=== PATIENT | male | born 1955 | race Caucasian/White ===

== ENCOUNTER 2016-07-31 12:49 | Emergency (ER) | payer BC ==
[~2016-07-31] VITALS: Ht 190.5 cm; Wt 139.3 kg
[~2016-07-31 12:49] MED LIST: ASPI-435 PO; ATEN25TA PO; DOXY100C2 PO; LISI5TAB PO; OMEP20CA9 PO; PRED-301 PO; SIMV40TA2 PO; TRAM-10 PO; TRAZ-119 PO; VTMD1000 PO
[2016-07-31] MEDS ORDERED: SODIUM CHLORIDE 0.9% 1000ML 1,000 ML IV STA (12:56)
[2016-07-31] MEDS ORDERED: ONDANSETRON INJ 2 MG/ML 2 ML VIAL IV STA (12:56)
--- NOTE | 2016-07-31 13:02 | EMERGENCY ROOM VISIT NOTE ---
History Report prepared by Natasha: Ariel Roberto Under the Supervision of: Dr. Reggie Ramsey D.O. First contact with patient: 12:49 Stated Complaint: L HIP DISLOCATION History of Present Illness The patient is a 60 year old male who presents to the Emergency Room via EMS with complaints of a sudden left hip dislocation that occurred prior to arrival this morning. The patient says that he has had his left hip pop out in the past , and was put to sleep when he had his hip put back in. He states that he was bending over working at camp, when his left hip popped out. The patient then fell down onto his side. Per EMS, the patient was given 200 micrograms of Fentanyl and 10 mg of Morphine in the ambulance. The patient says that he has left hip pain and a bit of abdominal pain, but the abdominal pain may be from the strap that was put around him in the ambulance. He notes that he had a bit of water after the incident, but has not eaten anything this morning. He had a cholecystectomy a couple weeks ago. The patient uses tobacco products rarely, and does not drink alcohol. Source of History: patient, EMS Onset: Prior to arrival this morning Position: other (left hip) Quality: other (dislocation) Timing: other (sudden) Associated Symptoms: + abdominal pain (from strap) Note: Associated symptoms: Left hip pain. Review of Systems See HPI for pertinent positives & negatives. A total of 10 systems reviewed and were otherwise negative. Past Medical & Surgical Medical Problems: (1) Arthritis of left hip Surgical Problems: (1) H/O rotator cuff surgery (2) S/P hip replacement (3) S/P knee replacement Family History Gallbladder disease Heart disease Hypertension Kidney disease Kidney stones Social History Smoking Status: Light Tobacco Smoker Alcohol Use: none Marital Status: single Occupation Status: employed Current/Historical Medications Scheduled Aspirin (Aspirin 81), 81 MG PO QAM Atenolol (Tenormin), 12.5 MG PO QAM Cholecalciferol (Vitamin D3), 5,000 UNITS PO QAM Lisinopril (Prinivil), 5 MG PO QAM Omeprazole (Prilosec), 20 MG PO QPM Prednisone (Prednisone), 5 MG PO DAILY Simvastatin (Zocor), 40 MG PO QPM Trazodone Hcl (Desyrel), 50 MG PO HS Scheduled PRN Tramadol (Ultram), 50 MG PO Q4H PRN for Pain Allergies Coded Allergies: No Known Allergies (Unverified , 07/31/16) Physical Exam Vital Signs Date Time Temp Pulse Resp B/P (MAP) Pulse Ox O2 Delivery O2 Flow Rate FiO2 07/31/16 18:18 61 16 137/64 97 Room Air 07/31/16 17:19 56 18 102/57 92 Room Air 07/31/16 17:16 58 07/31/16 16:02 122/54 07/31/16 16:01 65 0 95 07/31/16 15:57 134/75 07/31/16 15:56 58 0 100 07/31/16 15:52 105/46 07/31/16 15:51 62 0 93 07/31/16 15:47 121/67 07/31/16 15:46 58 0 92 07/31/16 15:42 117/67 07/31/16 15:41 67 0 91 07/31/16 15:37 129/79 07/31/16 15:36 67 6 93 Non-Rebreather 15.0 07/31/16 15:35 63 16 129/79 95 Non-Rebreather 15.0 07/31/16 15:32 136/78 07/31/16 15:31 67 4 86 Ambu-Bag 15.0 07/31/16 15:26 64 27 127/75 86 Ambu-Bag 07/31/16 15:24 68 4 127/75 86 Non-Rebreather 15.0 07/31/16 15:20 60 22 142/79 95 Room Air 07/31/16 14:33 64 18 118/59 97 Room Air 07/31/16 13:14 36.6 66 24 145/69 96 Room Air 07/31/16 13:05 66 Physical Exam GENERAL: Patient is awake, alert, very anxious and uncomfortable appearing. EYES: The conjunctivae are clear. The pupils are round and reactive. EARS, NOSE, MOUTH AND THROAT: The nose is without any evidence of any deformity. Mucous membranes are moist tongue is midline NECK: The neck is nontender and supple. RESPIRATORY: Normal respiratory effort is noted there is no evidence of wheezing rhonchi or rales CARDIOVASCULAR: Regular rate and rhythm noted there no murmurs rubs or gallops normal S1 normal S2 GASTROINTESTINAL: The abdomen is mildly distended but soft, no specific guarding or rigidity appreciated. PELVIS: The Pelvis is stable. No tenderness to palpation is noted. MUSCULOSKELETAL/EXTREMITIES: Left hip internally rotated and shortened, patient resists any range of motion testing of left hip, no deformity. SKIN: There is no obvious evidence of any rash. There are no petechiae, pallor or cyanosis noted. NEUROLOGIC: Patient is awake alert and oriented x3. Medical Decision & Procedures ER Provider Diagnostic Interpretation: X-ray results as stated below per interpretation by me and the radiologist. LEFT HIP 2 VIEWS CLINICAL HISTORY: Left hip pain. FINDINGS: AP and crosstable lateral views of the left hip are compared to study dated 02/18/2016. The skeletal structures are osteopenic. No fracture is seen. There has been superior dislocation of the femoral component of the left hip arthroplasty. Mild overlying soft tissue edema is noted. No periprosthetic lucency is identified. IMPRESSION: 1. There has been superior dislocation of the femoral component of the left hip arthroplasty. 2. No fracture is seen. Electronically signed by: Dameon Gray M.D. 07/31/2016 2:14 PM Dictated Date/Time: 07/31/2016 2:12 PM LEFT HIP UNILATERAL 2 VIEWS CLINICAL HISTORY: post reduction COMPARISON: 07/31/2016 DISCUSSION: Anatomic alignment status post closed reduction. There is no evidence for soft tissue swelling. IMPRESSION: Anatomic alignment status post closed reduction. Electronically signed by: Spencer Ulrich M.D. 07/31/2016 4:23 PM Dictated Date/Time: 07/31/2016 4:22 PM Laboratory Results 07/31/16 13:20 Red Blood Count 4.14, Mean Corpuscular Volume 94.7, Mean Corpuscular Hemoglobin 32.1, Mean Corpuscular Hemoglobin Concent 33.9, Mean Platelet Volume 9.6, Neutrophils (%) (Auto) 72.2, Lymphocytes (%) (Auto) 21.0, Monocytes (%) (Auto) 6.3, Eosinophils (%) (Auto) 0.0, Basophils (%) (Auto) 0.3, Neutrophils # (Auto) 7.17, Lymphocytes # (Auto) 2.08, Monocytes # (Auto) 0.62, Eosinophils # (Auto) 0.00, Basophils # (Auto) 0.03 07/31/16 13:20 Test 07/31/16 13:20 White Blood Count 9.92 K/uL (4.8-10.8) Red Blood Count 4.14 M/uL (4.7-6.1) Hemoglobin 13.3 g/dL (14.0-18.0) Hematocrit 39.2 % (42-52) Mean Corpuscular Volume 94.7 fL (80-100) Mean Corpuscular Hemoglobin 32.1 pg (25-34) Mean Corpuscular Hemoglobin Concent 33.9 g/dl (32-36) Platelet Count 260 K/uL (130-400) Mean Platelet Volume 9.6 fL (7.4-10.4) Neutrophils (%) (Auto) 72.2 % Lymphocytes (%) (Auto) 21.0 % Monocytes (%) (Auto) 6.3 % Eosinophils (%) (Auto) 0.0 % Basophils (%) (Auto) 0.3 % Neutrophils # (Auto) 7.17 K/uL (1.4-6.5) Lymphocytes # (Auto) 2.08 K/uL (1.2-3.4) Monocytes # (Auto) 0.62 K/uL (0.11-0.59) Eosinophils # (Auto) 0.00 K/uL (0-0.5) Basophils # (Auto) 0.03 K/uL (0-0.2) RDW Standard Deviation 46.9 fL (36.4-46.3) RDW Coefficient of Variation 13.5 % (11.5-14.5) Immature Granulocyte % (Auto) 0.2 % Immature Granulocyte # (Auto) 0.02 K/uL (0.00-0.02) Anion Gap 6.0 mmol/L (3-11) Est Creatinine Clear Calc Drug Dose 110.2 ml/min Estimated GFR () 85.3 Estimated GFR (Non- 73.6 BUN/Creatinine Ratio 18.2 (10-20) Calcium Level 8.4 mg/dl (8.5-10.1) Total Bilirubin 0.6 mg/dl (0.2-1) Direct Bilirubin 0.2 mg/dl (0-0.2) Aspartate Amino Transf (AST/SGOT) 17 U/L (15-37) Alanine Aminotransferase (ALT/SGPT) 24 U/L (12-78) Alkaline Phosphatase 56 U/L (45-117) Troponin I < 0.015 ng/ml (0-0.045) Total Protein 6.6 gm/dl (6.4-8.2) Albumin 3.6 gm/dl (3.4-5.0) Lipase 188 U/L (73-393) Laboratory results per my review. Medications Administered Medications (Trade) Dose Ordered Sig/Nupur Route Start Time Stop Time Status Last Admin Dose Admin Hydromorphone HCl (Dilaudid Inj) 1 mg Q30M PRN IV 07/31/16 13:00 07/31/16 19:06 DC 07/31/16 14:35 1 MG Ondansetron HCl (Zofran Inj) 4 mg NOW STAT IV 07/31/16 12:56 07/31/16 12:58 DC 07/31/16 13:06 4 MG Sodium Chloride 1,000 ml @ 125 mls/hr Q8H STAT IV 07/31/16 12:56 07/31/16 19:06 DC 07/31/16 12:56 125 MLS/HR Propofol (Diprivan Iv Emulsion 20ml Vial) 400 mg STK-MED ONCE IV 07/31/16 14:58 07/31/16 14:59 DC 07/31/16 14:58 100 MG Oxycodone HCl (Roxicodone Immediate Rel 5MG Home Pack) 1 homepack UD ONCE PO 07/31/16 17:00 07/31/16 17:01 DC 07/31/16 18:20 1 HOMEPACK ECG Indication: abdominal pain Rate (beats per minute): 61 Rhythm: sinus rhythm Findings: no ectopy, other (no acute ST segment abnormalities) Change: no significant change (from Jul 24 2015) ED Course 1251: The patient was evaluated in room B3B. A complete history and physical examination were performed. 1256: Ordered NSS 1000 ml @ 125 mls/hr IV, Zofran Inj 4 mg IV. 1300: Ordered Dilaudid Inj 1 mg IV PRN. 1435: I discussed the patient with Dr. Barger of [facility]. 1512: I put the dislocated hip back in. 1547: I discussed the patient with Dr. Barger of [facility]. 1700: Ordered Roxicodone Immediate Rel 5MG Home Pack 1 homepack PO. 1715: Upon reevaluation, the patient is resting comfortably. I discussed the results and treatment plan with him. He verbalized agreement of the treatment plan. He was discharged home. Medical Decision Prior records reviewed and summarized above. Triage Nursing notes reviewed and agree them. Additional history obtained from EMS. The patient's history was concerning for traumatic injury. Differential diagnosis: Etiologies such as fracture, dislocation, neurovascular compromise, compartment syndrome, soft tissue injury, as well as others were entertained. Medication Reconciliation: I attest that I have personally reviewed the patient' s current medications list. Blood pressure screening: Patient was found to have normal blood pressure on screening and does not require follow-up. The patient is a 60-year-old male who presents emergency department for an evaluation of left hip pain. The patient has a history also has a history of a hip dislocation in the past. The patient was treated with IV pain medication in the emergency department. The patient was found have a posterior didn't hit hip dislocation. The patient was reduced using procedural sedation in emergency department. He was given a similar dose to what he received in the past. He did have an episode of shallow breathing and required bagging with [id number] as well as a nasal trumpet. The patient was reevaluated multiple times. He recovered nicely from the sedation. I discussed his case with his primary orthopedic physician. He is encouraged him to set up an appointment to discuss any further revision on the hip given that this is his second hip dislocation. The patient was encouraged to drink plenty clear liquids but did not eat any solid foods this evening. He was also encouraged to follow-up with his primary orthopedic physician as soon as possible but return to the emergency department immediately if symptoms change worsen or the need arises. I did review the patient's vital signs. After the procedural sedation was done or are some episodes where the patient's respirations are documented to be 0. I do not feel this is the case. The patient had very shallow breathing but I do not feel he was apneic at any time. Consults Time Called: [phone] Consulting Physician: Dr. Barger of [facility] Returned Call: [phone] I discussed the patient with Dr. Barger of [facility]. Additional Consults: Time Called: 1540 Consulted Physician: Dr. Barger of [facility] Returned Call: [phone] Additional Comments: I discussed the patient with Dr. Barger of [facility]. Impression Primary Impression: Hip dislocation, left Scribe Attestation The scribe's documentation has been prepared under my direction and personally reviewed by me in its entirety. I confirm that the note above accurately reflects all work, treatment, procedures, and medical decision making performed by me. Departure Information Dispostion Home / Self-Care Referrals Hong Zheng M.D. Roeshot, Douglas, M.D. Forms Adult Anesthesia/Sedation, HOME CARE DOCUMENTATION FORM, IMPORTANT VISIT INFORMATION, WORK / SCHOOL INSTRUCTIONS Patient Instructions ED Dislocation Hip Traumatic Redu, ED Sedation Procedural Discon, My [facility] Additional Instructions Avoid any strenuous activity. Call your orthopedic physician as scheduled follow -up appointment. Return to the emergency department immediately symptoms change worsen or the need arises. Problem Qualifiers Primary Impression: Hip dislocation, left Encounter type: initial encounter Qualified Codes: S73.005A - Unspecified dislocation of left hip, initial encounter
[2016-07-31] MEDS: HYDROmorphone INJ 1 MG/ML SYR IV PRN ×3 (13:07→14:35)
[2016-07-31 13:14] VITALS: TEMP 36.6; Ht 190.5 cm; Wt 139.3 kg
[2016-07-31 13:34] LABS: BASO % 0.3 %; BASO ABS # 0.03 K/uL (0-0.2); COMPLETE YES; HEMATOCRIT 39.2 % (42-52); IG% 0.2 %; LYMPH ABS # 2.08 K/uL (1.2-3.4); MEAN CELL VOLUME 94.7 fL (80-100); MEAN CORPUSCULAR HEMOGLOBIN 32.1 pg (25-34); MEAN CORPUSCULAR HGB CONC 33.9 g/dl (32-36); MEAN PLATELET VOLUME 9.6 fL (7.4-10.4); MONO % 6.3 %; NEUT % 72.2 %; PLATELET COUNT 260 K/uL (130-400); RED BLOOD COUNT 4.14 M/uL (4.7-6.1); WHITE BLOOD COUNT 9.92 K/uL (4.8-10.8)
[2016-07-31 13:55] LABS: ALT/SGPT 24 U/L (12-78); AST/SGOT 17 U/L (15-37); BLOOD UREA NITROGEN 20 mg/dl (7-18); BUN/CREATININE RATIO 18.2 (10-20); CALCIUM 8.4 mg/dl (8.5-10.1); CARBON DIOXIDE 27 mmol/L (21-32); CHLORIDE 109 mmol/L (98-107); GLUCOSE 97 mg/dl (70-99); POTASSIUM 4.7 mmol/L (3.5-5.1); SODIUM 142 mmol/L (136-145)
[2016-07-31 14:01] LABS: ALKALINE PHOSPHATASE 56 U/L (45-117)
--- NOTE | 2016-07-31 14:15 | DIAGNOSTIC IMAGING REPORT ---
LEFT HIP 2 VIEWS CLINICAL HISTORY: Left hip pain. FINDINGS: AP and crosstable lateral views of the left hip are compared to study dated 02/18/2016. The skeletal structures are osteopenic. No fracture is seen. There has been superior dislocation of the femoral component of the left hip arthroplasty. Mild overlying soft tissue edema is noted. No periprosthetic lucency is identified. IMPRESSION: 1. There has been superior dislocation of the femoral component of the left hip arthroplasty. 2. No fracture is seen. Electronically signed by: Dameon Gray M.D. 07/31/2016 2:14 PM Dictated Date/Time: 07/31/2016 2:12 PM
[2016-07-31] MEDS ORDERED: PROPOFOL IV EMULSION 10 MG/ML 20 ML VIAL IV ONE (14:58)
[2016-07-31 15:20] VITALS: BP 142/79; PULSE 60; O2SAT 95
[2016-07-31 15:24] VITALS: BP 127/75; PULSE 68; O2SAT 86
--- NOTE | 2016-07-31 15:24 | EMERGENCY ROOM VISIT NOTE ---
Pre-Mod Sedation Assessment General Date of Moderate Sedation: Jul 31, 2016. Vital Signs: Vital Signs Past 12 Hours Date Time Temp Pulse Resp B/P (MAP) Pulse Ox O2 Delivery O2 Flow Rate FiO2 07/31/16 14:33 64 18 118/59 97 Room Air 07/31/16 13:14 36.6 66 24 145/69 96 Room Air 07/31/16 13:05 66 Review Cardiovascular: regular rate, rhythm Abdomen: normal bowel sounds, non tender, soft Lungs: lungs clear Airway Class: III Pre-Sedation Airway Assessment Oral Cavity: WNL Able to Visualize Vocal Cords: No Short Thick Neck: No Hx of Sleep Apnea: No Smoking Status: Former Smoker Mallampati Classification: Class III (Soft palate, base of uvula) ASA Classification: Class II Procedure Planning Contraindications-for Mod Sed: None Yes Notes The planned sedation has been discussed with the patient and consent obtained. I have identified the patient, determined the appropriateness of sedation and have assessed the patient immediately prior to the procedure. All medicine(s) and interventions are by my order.
[2016-07-31 15:35] VITALS: BP 129/79; PULSE 63; O2SAT 95
--- NOTE | 2016-07-31 15:37 | EMERGENCY ROOM VISIT NOTE ---
Post-Moderate Sedation Plan General Date of Moderate Sedation Jul 31, 2016. Vital Signs: Vital Signs Past 12 Hours Date Time Temp Pulse Resp B/P (MAP) Pulse Ox O2 Delivery O2 Flow Rate FiO2 07/31/16 14:33 64 18 118/59 97 Room Air 07/31/16 13:14 36.6 66 24 145/69 96 Room Air 07/31/16 13:05 66 Review - Discharge Plan Post Moderate Sedation Plan: On clinical assessment, the patient appears to have tolerated the conscious sedation without complications. Patient is recovering as anticipated. Patient will continue to be monitored by nursing and may be discharged when conscious sedation discharge criteria are met.
--- NOTE | 2016-07-31 16:24 | DIAGNOSTIC IMAGING REPORT ---
LEFT HIP UNILATERAL 2 VIEWS CLINICAL HISTORY: post reduction COMPARISON: 07/31/2016 DISCUSSION: Anatomic alignment status post closed reduction. There is no evidence for soft tissue swelling. IMPRESSION: Anatomic alignment status post closed reduction. Electronically signed by: Spencer Ulrich M.D. 07/31/2016 4:23 PM Dictated Date/Time: 07/31/2016 4:22 PM
[2016-07-31] MEDS ORDERED: OXYCODONE IR HOME PACK PO ONE (17:00)
[2016-07-31 18:18] VITALS: BP 137/64; PULSE 61; O2SAT 97
--- NOTE | 2016-07-31 18:29 | EMERGENCY ROOM VISIT NOTE ---
ED Visit Note Procedural Sedation Indication Hip dislocation. Total time: 16 minutes at bedside Written consent was obtained after the risks and benefits were explained to the pt and , including, but not limited to aspiration, allergic reaction, breathing difficulties, cardiac complications, vomiting, pain, event recall, bleeding, and/or infection. Pre-sedation examination and paperwork completed. The patient was on 100% oxygen via NRB prior to the procedure. Continuous end tidal CO2 monitoring, pulse oximetry, and cardiac monitoring were utilized. Suction, airway equipment, medications, respiratory equipment, and appropriate personnel were prepared prior to the initiation of the procedure. A time out was taken. Sedation was achieved utilizing a total of 100 mg of IV propofol. After I observed the patient had reached the appropriate level of sedation the main procedure was performed, pt had a brief period (1-2 mon) of relative apnea and a nasopharyngeal airway was placed and the pt was ventilated with ambu bag without difficulty. Sedation was discontinued and the monitoring continued. The patient recovered quickly from the effects of the medication without significant complication or adverse event.
[2016-08-06] MEDS ORDERED: HYDR200T5 PO (10:59)
[2016-08-06] MEDS ORDERED: OXYC1CAP5 PO (11:02)
[2016-08-31] MEDS ORDERED: OXYC1CAP5 PO (10:38)
== END 2016-07-31 18:28 | disposition home or self-care (01) ==
LOC: EDBD 12:49 → C.EDB 12:51
DX: M24.452 Recurrent dislocation, left hip (principal); M16.12 Unilateral primary osteoarthritis, left hip; Z83.79 Family history of other diseases of the digestive system; Z82.49 Family history of ischemic heart disease and other diseases of the circulatory system; Z84.1 Family history of disorders of kidney and ureter; Z72.0 Tobacco use; Z79.82 Long term (current) use of aspirin; Z79.52 Long term (current) use of systemic steroids; Z79.899 Other long term (current) drug therapy

== ENCOUNTER 2016-08-21 10:20 | Inpatient (IN) | payer BC ==
[2016-08-06 11:03] VITALS: BMI 35.0
--- NOTE | 2016-08-06 11:40 | PAT Medication Instructions ---
Service Date Aug 06, 2016. Current Home Medication List Aspirin (Aspirin 81), 81 MG PO QAM Atenolol (Tenormin), 12.5 MG PO QAM Cholecalciferol (Vitamin D3), 5,000 UNITS PO QAM Hydroxychloroquine Sulfate (Plaquenil), 200 MG PO QPM Lisinopril (Prinivil), 5 MG PO QAM Omeprazole (Prilosec), 20 MG PO QPM Oxycodone Hcl (Oxycodone Hcl), 1-2 CAP PO Q6H PRN for RN Prednisone (Prednisone), 5 MG PO QAM Simvastatin (Zocor), 40 MG PO QPM Tramadol (Ultram), 50 MG PO Q4H PRN for Pain Trazodone Hcl (Desyrel), 50 MG PO HS Medication Instructions For Your Scheduled Surgery Hydroxychloroquine Sulfate (Plaquenil), 200 MG PO QPM (patient will check with orthodontist for instructions) - Hold the following medications the morning of surgery: Lisinopril (Prinivil), 5 MG PO QAM Cholecalciferol (Vitamin D3), 5,000 UNITS PO QAM - Take the following medications the morning of surgery with a sip of water: Tramadol (Ultram), 50 MG PO Q4H PRN for Pain (can take up to four hours prior to surgery if needed) Prednisone (Prednisone), 5 MG PO QAM Oxycodone Hcl (Oxycodone Hcl), 1-2 CAP PO Q6H PRN for RN (can take up to four hours prior to surgery if needed) Aspirin (Aspirin 81), 81 MG PO QAM Atenolol (Tenormin), 12.5 MG PO QAM - Take the following medications as scheduled the night before surgery: Trazodone Hcl (Desyrel), 50 MG PO HS Tramadol (Ultram), 50 MG PO Q4H PRN for Pain Simvastatin (Zocor), 40 MG PO QPM Oxycodone Hcl (Oxycodone Hcl), 1-2 CAP PO Q6H PRN for RN Omeprazole (Prilosec), 20 MG PO QPM If you have any questions please call us at [phone] or [phone] ( [place]) or [phone]
--- NOTE | 2016-08-06 12:11 | DIAGNOSTIC IMAGING REPORT ---
CHEST PREADMISSION(PA/LAT) CLINICAL HISTORY: Preoperative evaluation. COMPARISON STUDY: Chest radiograph July 24, 2015. FINDINGS: Lung volumes are at the upper limits of normal. No consolidation is identified. There is a suspected small hiatal hernia. Cardiac size is normal. Pulmonary vascularity is normal. IMPRESSION: No acute cardiopulmonary findings. Electronically signed by: Joselito Adams M.D. 08/06/2016 12:10 PM Dictated Date/Time: 08/06/2016 12:09 PM
[2016-08-06 12:30] LABS: URINE APPEARANCE CLEAR (CLEAR); URINE BILIRUBIN NEG (NEG); URINE COLOR YELLOW; URINE NITRITE NEG (NEG); URINE PH 6.5 (4.5-7.5); URINE SPECIFIC GRAVITY 1.023 (1.000-1.030); UROBILINOGEN NEG (NEG)
[2016-08-06 12:38] LABS: INR 0.9 (0.9-1.1); PROTHROMBIN TIME (PATIENT) 10.1 SECONDS (9.0-12.0)
[2016-08-06 12:45] LABS: MANUAL MICROSCOPIC REQUIRED? NO; REVIEW REQ? NO
[2016-08-06 13:15] LABS: ESTIMATED AVERAGE GLUCOSE 114 mg/dl; HA1C FLAG Normal (Normal)
--- NOTE | 2016-08-20 09:47 | History and Physical ---
History & Physical Date Aug 20, 2016. Chief Complaint Recurrent dislocation right total hip arthroplasty History of Present Illness The patient is a 60 year old male with complaints of Past Medical/Surgical History Medical Problems: (1) Arthritis of left hip Surgical Problems: (1) H/O rotator cuff surgery (2) S/P hip replacement (3) S/P knee replacement Additional History Hepatic Disease: No Endocrine Disorder: No Kidney Disease: No Hypertension: Yes Heart Disease: No Bleeding Tendencies: No Infectious Diseases: No Other: Hyperlipidemia, Pulmonary Embolism Allergies Coded Allergies: No Known Allergies (Unverified , 08/06/16) Home Medications Scheduled Aspirin (Aspirin 81), 81 MG PO QAM Atenolol (Tenormin), 12.5 MG PO QAM Cholecalciferol (Vitamin D3), 5,000 UNITS PO QAM Hydroxychloroquine Sulfate (Plaquenil), 200 MG PO QPM Lisinopril (Prinivil), 5 MG PO QAM Omeprazole (Prilosec), 20 MG PO QPM Prednisone (Prednisone), 5 MG PO QAM Simvastatin (Zocor), 40 MG PO QPM Trazodone Hcl (Desyrel), 50 MG PO HS Scheduled PRN Oxycodone Hcl (Oxycodone Hcl), 1-2 CAP PO Q6H PRN for RN Tramadol (Ultram), 50 MG PO Q4H PRN for Pain Physical Examination Skin: warm/dry Eyes: normal inspection, EOMI ENT: normal ENT inspection Head: normocephalic, atraumatic Neck: supple, no adenopathy Respiratory/Chest: lungs clear, normal breath sounds Cardiovascular: regular rate, rhythm Abdomen / GI: normal bowel sounds, non tender Back: normal inspection Extremities: normal inspection, + pertinent finding (Left hip healed incision from previous arthroplasty, PROM WNLs) Neurologic/Psych: no motor/sensory deficits Addiitonal Comments: Xrays: left DILEEP in acceptable position, acetabulum in neutral version Diagnosis Left total hip dislocation x 2 Plan of Treatment Left DILEEP revision, possible femoral head, possible acetabular revision to MDM style cup vs constrained
[~2016-08-21] VITALS: Ht 190.5 cm; Wt 126.7 kg
[2016-08-21] VITALS (8 sets, daily range): BP systolic 103–130; BP diastolic 58–74; PULSE 51–61; TEMP 36.4–37; O2SAT 95–100; Ht 190.5 cm; Wt 126.7 kg
[2016-08-21] MEDS: TRANEXAMIC ACID INJ 1,000 MG in SODIUM CHLORIDE 0.9% 100ML 100 ML IV SCH ×2 (06:30→12:09)
[~2016-08-21 10:20] MED LIST changes: +ACETAMINOPHEN 500 MG TAB PO SCH; +BUPIVACAINE 0.5 % 5 MG/1 ML PF 10ML VIAL ONE; +CEFAZOLIN 3000 MG/65 ML D5W 65 ML IV SCH; +DEXAMETHASONE 4 MG TAB PO SCH; -DOXY100C2 PO; +FAMOTIDINE 20 MG TAB PO SCH; +GABAPENTIN 300 MG CAP PO SCH; +HYDR200T5 PO; +LACTATED RINGER'S 1000ML 1,000 ML IV SCH; +LACTATED RINGER'S 1000ML IV SCH; +OXYC1CAP5 PO; +ROPIVACAINE 5MG/ML 30 ML 150 MG, BUPIVACAINE/EPINEPHR 0.5% MPF 30 ML, KETOROLAC TROMETH... INFIL SCH; -TRAZ-119 PO; +TRAZ1TAB16 PO
--- NOTE | 2016-08-21 10:50 | History & Physical Bridge Note ---
H&P Re-Evaluation Bridge Note: I have examined the patient, reviewed the History & Physical and in the interval since the performance of the History & Physical I have noted the following changes of clinical significance: No changes notedThe left hip is the correct hip
[2016-08-21] MEDS ORDERED: MIDAZOLAM HCL 1 MG/ML 2ML VIAL ONE ×4 (11:43→14:33)
[2016-08-21] MEDS ORDERED: FENTANYL CITRATE INJ 50 MCG/1 ML 2 ML VIAL ONE ×2 (11:43→13:50)
[2016-08-21] MEDS ORDERED: BACITRACIN 50000 UNIT VIAL ONE (12:02)
[2016-08-21] MEDS ORDERED: ORTHO JOINT ANESTHETIC ONE (12:02)
[2016-08-21] MEDS ORDERED: POVIDONE-IODINE OP SOLN 30 ML BTL ONE (12:02)
[2016-08-21] MEDS ORDERED: PHENYLEPHRINE 100MCG/ML 5ML SYR IV PRN (12:45)
[2016-08-21] MEDS ORDERED: HYDROmorphone INJ 2 MG/ML SYR/VIAL IV PRN (12:45)
[2016-08-21] MEDS ORDERED: EpHEDrine SULFATE INJ 50 MG/ML AMP IV PRN (12:45)
[2016-08-21] MEDS ORDERED: KETOROLAC TROMETHAMINE 30 MG/ML VIAL IV. PRN (12:45)
[2016-08-21] MEDS ORDERED: ATROPINE SULFATE 0.1 MG/ML 5ML SYR IV PRN (12:45)
[2016-08-21] MEDS ORDERED: ONDANSETRON INJ 2 MG/ML 2 ML VIAL IV PRN ×2 (12:45→15:30)
[2016-08-21] MEDS ORDERED: KETAMINE HCL INJ 50 MG/ML 10 ML VIAL ONE (14:32)
[2016-08-21] MEDS ORDERED: PROPOFOL IV EMULSION 10 MG/ML 20 ML VIAL IV ONE (14:52)
--- NOTE | 2016-08-21 15:03 | [facility] Operative Report ---
Operative Report Operative Date Aug 21, 2016. Pre-Operative Diagnosis Left Hip Recurrent Instability Post-Operative Diagnosis same Procedure(s) Performed Patient was placed in the right lateral T was position a "lung but was reopened substantial crepitus at allergies hemostasis that was tested and found dislocated forefoot is internal rotation at 90 flexion. Short rotators were divided of the posterior femur using electrocautery. The femoral head was disimpacted using flexion about the femoral stem was well seated. Disposition the liner exposure was retractors was obtained and circumferential removal soft tissue overlying the liner was carried out. Liner was removed using a curved osteotome and a mallet. The acetabulum was well fixed and in slight anteversion and decision was made to proceed with a constrained cup. The constrained acetabulum liner was placed typically located with a +0 head 28 mm diameter the femoral head was snapped in position upon testing the hip in flexion and internal rotation once again dislocated disengaging the constrained liner into 2 separate pieces. This liner was removed second central facet was removed and this disengaging the entire liner from the cup decision was made to change the version of the. The explant was obtained the single screw was removed using explant the bone prosthesis interface was undermined using a mallet. The straight cup insert was utilized to disengage the cup and the acetabulum was removed with virtually no lost bone. Touch operating room with the 60 and taken up to 62 was carried out and a pressure 200 was impacted into position with an impactor and a decision was made increased leg length by 25 mm as he appears slightly short on AP pelvis x-ray taken soon after surgery previously. The femoral head +2.5 was obtained after drying the trunnion was impacted into position and the femoral head was engaged into the constrained liner this now produced no heart heart levering anteriorly and the posterior stable in all planes also irrigated with pulsatile irrigation fascia was closed over Hemovac drain using #1 Vicryl subcutaneous tissue closure using O vidral and a Silverlon dressing. The patient Tolerated the procedure well. Mr. Coppola was necessary in all portions the case including positioning prepping draping with surgical rn wound closure and dressing application. Surgeon Dr. Dakotah Barger Paralegals Surgeon(s) Dioni Coppola PAElin Estimated Blood Loss 200 mL Findings Recurrent instability Specimens A. explanted hardware I attest to the content of the Intraoperative Record and any orders documented therein. Any exceptions are noted below.
[2016-08-21] MEDS ORDERED: BISACODYL 10 MG SUPP PR PRN (15:30)
[2016-08-21] MEDS ORDERED: ALUMINUM/MAGNESIUM/SIMETH (MAALOX MAX) 30 ML UDC PO PRN (15:30)
[2016-08-21] MEDS ORDERED: MoRPHine SULFATE 4 MG/ML 1 ML CARP\\VIAL IV PRN (15:30)
[2016-08-21] MEDS ORDERED: MoRPHine SULFATE 2 MG/ML CARP IV PRN (15:30)
[2016-08-21] MEDS ORDERED: MAGNESIUM HYDROXIDE SUSP 30 ML UDC PO PRN (15:30)
--- NOTE | 2016-08-21 16:07 | Anesthesiology Progress Note ---
Anesthesia Post Op Note Date & Time Aug 21, 2016 at 16:07 Vital Signs Pain Intensity: 0 Vital Signs Past 12 Hours Date Time Temp Pulse Resp B/P (MAP) Pulse Ox O2 Delivery O2 Flow Rate FiO2 08/21/16 15:58 51 16 100 08/21/16 15:58 51 16 08/21/16 15:56 99/55 08/21/16 15:53 53 15 08/21/16 15:53 51 15 118/64 99 08/21/16 15:51 96/58 08/21/16 15:48 50 19 08/21/16 15:48 50 19 100 08/21/16 15:47 50 20 08/21/16 15:47 51 20 103/60 98 08/21/16 15:42 46 19 08/21/16 15:42 46 19 100 08/21/16 15:41 102/41 08/21/16 15:37 54 22 100 08/21/16 15:37 52 22 08/21/16 15:36 105/49 08/21/16 15:35 58 14 100 08/21/16 15:35 57 14 08/21/16 15:31 113/64 08/21/16 15:30 56 20 100 08/21/16 15:30 54 20 08/21/16 15:26 121/69 08/21/16 15:25 67 18 08/21/16 15:25 67 18 92 08/21/16 15:21 113/66 08/21/16 15:20 57 22 08/21/16 15:20 53 22 96 08/21/16 15:20 36.2 67 18 113/66 100 Mask 10 08/21/16 10:57 36.7 56 20 118/62 99 Room Air Notes Mental Status: alert / awake / arousable, participated in evaluation Pt Amnestic to Procedure: Yes Nausea / Vomiting: adequately controlled Pain: adequately controlled Airway Patency, RR, SpO2: stable & adequate BP & HR: stable & adequate Hydration State: stable & adequate Anesthetic Complications: no major complications apparent
--- NOTE | 2016-08-21 16:08 | DIAGNOSTIC IMAGING REPORT ---
AP PELVIS, CROSSTABLE LATERAL LEFT HIP History: Left total hip arthroplasty revision. Degenerative arthritis. Postop. FINDINGS: The patient is status post revision of a left total hip arthroplasty. The hardware is intact. No fracture or dislocation. Surgical drains are in place. IMPRESSION: Status post revision of a left total hip arthroplasty. No evidence for hardware complication. Electronically signed by: Ambrose Daigle M.D. 08/21/2016 4:07 PM Dictated Date/Time: 08/21/2016 4:06 PM
[2016-08-21] MEDS: D5W AND 1/2NSS + 20MEQ KCL 1,000 ML IV SCH (17:17)
[2016-08-21] MEDS: FERROUS GLUCONATE 324 MG TAB PO SCH (17:41)
[2016-08-21] MEDS: TRAMADOL HCL 50 MG TAB PO PRN (18:39)
[2016-08-21] MEDS: OXYCODONE HCL IR 5 MG TAB (IMMEDIATE RELEASE) PO PRN (20:12)
[2016-08-21] MEDS: CEFAZOLIN IV 2,000 MG in DEXTROSE 5% 50ML 50 ML IV SCH (20:12)
[2016-08-21] MEDS: SIMVASTATIN 40 MG TAB PO SCH (21:22)
[2016-08-21] MEDS: TRAZODONE HCL 50 MG TAB PO SCH (21:22)
[2016-08-21] MEDS: DOCUSATE SODIUM 100 MG CAP PO SCH (21:22)
[2016-08-21] MEDS: ASPIRIN 81 MG ECTAB PO SCH (21:22)
[2016-08-21] MEDS: SENNA 8.6 MG TAB PO SCH (21:22)
[2016-08-21] MEDS: ACETAMINOPHEN 500 MG TAB PO SCH (21:23)
[2016-08-22] MEDS: OXYCODONE HCL IR 5 MG TAB (IMMEDIATE RELEASE) PO PRN ×5 (00:34→21:36)
[2016-08-22] MEDS: CEFAZOLIN IV 2,000 MG in DEXTROSE 5% 50ML 50 ML IV SCH (03:09)
[2016-08-22] MEDS: D5W AND 1/2NSS + 20MEQ KCL 1,000 ML IV SCH ×2 (03:10→13:48)
[2016-08-22 03:15] VITALS: BP 106/58; PULSE 62; TEMP 37.4; O2SAT 95
[2016-08-22] MEDS: ACETAMINOPHEN 500 MG TAB PO SCH ×3 (05:49→21:36)
[2016-08-22 05:57] LABS: BASO % 0.1 %; BASO ABS # 0.02 K/uL (0-0.2); COMPLETE YES; EOS % 0.4 %; HEMATOCRIT 38.2 % (42-52); IG% 0.1 %; LYMPH % 21.3 %; LYMPH ABS # 2.97 K/uL (1.2-3.4); MEAN CELL VOLUME 95.3 fL (80-100); MEAN CORPUSCULAR HEMOGLOBIN 31.9 pg (25-34); MEAN CORPUSCULAR HGB CONC 33.5 g/dl (32-36); MEAN PLATELET VOLUME 10.3 fL (7.4-10.4); MONO % 7.5 %; NEUT % 70.6 %; PLATELET COUNT 252 K/uL (130-400); RED BLOOD COUNT 4.01 M/uL (4.7-6.1); WHITE BLOOD COUNT 13.97 K/uL (4.8-10.8)
[2016-08-22 06:31] LABS: BUN/CREATININE RATIO 16.9 (10-20); CALCIUM 8.4 mg/dl (8.5-10.1); CREATININE 1.1 mg/dl (0.60-1.40); POTASSIUM 4.6 mmol/L (3.5-5.1)
[2016-08-22 07:46] VITALS: BP 103/61; PULSE 63; TEMP 37; O2SAT 94
[2016-08-22] MEDS: FERROUS GLUCONATE 324 MG TAB PO SCH ×3 (09:23→17:39)
[2016-08-22] MEDS: MULTIVITAMIN TAB PO SCH (09:23)
[2016-08-22] MEDS: PANTOprazole SOD 40 MG TAB PO SCH (09:24)
[2016-08-22] MEDS: ASPIRIN 81 MG ECTAB PO SCH ×2 (09:24→21:32)
[2016-08-22] MEDS: DOCUSATE SODIUM 100 MG CAP PO SCH ×2 (09:24→21:32)
[2016-08-22] MEDS: CHOLECALCIFEROL 1000 INTER.UNIT TAB PO SCH (09:27)
[2016-08-22] MEDS: LISINOPRIL 5 MG TAB PO SCH (09:27)
--- NOTE | 2016-08-22 09:44 | Orthopedic Progress Note ---
Orthopedic Progress Note Date of Service Aug 22, 2016. Subjective Post OP Day: 1 Reports: feeling well Objective N/V intact, dressing C/D/I (Hemovac in place), toes mobile Date Time Temp Pulse Resp B/P (MAP) Pulse Ox O2 Delivery O2 Flow Rate FiO2 08/22/16 07:46 37.0 63 17 103/61 (75) 94 Room Air 08/22/16 07:45 Room Air 08/22/16 03:15 37.4 62 16 106/58 (74) 95 Room Air 08/21/16 23:59 Room Air 08/21/16 23:25 37.0 61 14 103/58 (73) 95 Room Air 08/21/16 20:06 55 130/74 (92) 08/21/16 19:26 36.6 58 18 108/64 (79) 97 Nasal Cannula 2.0 08/21/16 18:20 36.4 53 18 123/70 (87) 100 Nasal Cannula 2.0 08/21/16 17:20 36.4 52 18 119/66 (83) 100 Nasal Cannula 2.0 08/21/16 16:50 36.4 53 18 110/60 (77) 100 Nasal Cannula 2.0 08/21/16 16:40 99 Nasal Cannula 2.0 08/21/16 16:40 Nasal Cannula 2.0 99 08/21/16 16:20 36.5 51 16 110/68 (82) 99 Nasal Cannula 2.0 08/21/16 16:11 119/68 08/21/16 16:09 57 15 100 08/21/16 16:09 53 15 08/21/16 16:07 36.6 08/21/16 16:06 113/71 08/21/16 16:04 48 17 100 08/21/16 16:04 48 17 08/21/16 16:01 116/66 08/21/16 15:59 52 15 100 08/21/16 15:59 51 15 08/21/16 15:58 51 16 100 08/21/16 15:58 51 16 08/21/16 15:56 99/55 08/21/16 15:53 53 15 08/21/16 15:53 51 15 118/64 99 08/21/16 15:51 96/58 08/21/16 15:48 50 19 08/21/16 15:48 50 19 100 08/21/16 15:47 50 20 08/21/16 15:47 51 20 103/60 98 08/21/16 15:42 46 19 08/21/16 15:42 46 19 100 08/21/16 15:41 102/41 08/21/16 15:37 54 22 100 08/21/16 15:37 52 22 08/21/16 15:36 105/49 08/21/16 15:35 58 14 100 08/21/16 15:35 57 14 08/21/16 15:31 113/64 08/21/16 15:30 56 20 100 08/21/16 15:30 54 20 08/21/16 15:26 121/69 08/21/16 15:25 67 18 08/21/16 15:25 67 18 92 08/21/16 15:21 113/66 08/21/16 15:20 57 22 08/21/16 15:20 53 22 96 08/21/16 15:20 36.2 67 18 113/66 100 Mask 10 08/21/16 10:57 36.7 56 20 118/62 99 Room Air Laboratory Results 24 Hours: Test 08/22/16 05:14 White Blood Count 13.97 K/uL Red Blood Count 4.01 M/uL Hemoglobin 12.8 g/dL Hematocrit 38.2 % Mean Corpuscular Volume 95.3 fL Mean Corpuscular Hemoglobin 31.9 pg Mean Corpuscular Hemoglobin Concent 33.5 g/dl Platelet Count 252 K/uL Mean Platelet Volume 10.3 fL Neutrophils (%) (Auto) 70.6 % Lymphocytes (%) (Auto) 21.3 % Monocytes (%) (Auto) 7.5 % Eosinophils (%) (Auto) 0.4 % Basophils (%) (Auto) 0.1 % Neutrophils # (Auto) 9.86 K/uL Lymphocytes # (Auto) 2.97 K/uL Monocytes # (Auto) 1.05 K/uL Eosinophils # (Auto) 0.05 K/uL Basophils # (Auto) 0.02 K/uL Assessment & Plan Assessment: 60 yo male stable POD #1 s/p left DILEEP revision to constrained acetabulum Plan: 1. Med management 2. DVT prophylaxis- ASA, SCDs 3. PT/O 4. D/C planning- home w/ HH
--- NOTE | 2016-08-22 10:22 | Discharge Instructions ---
Discharge Instructions Date of Service Aug 22, 2016. Admission Reason for Admission: Chronic Left Hip Dislocation Discharge Discharge Diagnosis / Problem: Chronic Left Hip Instability Discharge Goals Goal(s): Decrease discomfort, Improve function Activity Recommendations Activity Limitations: per Instructions/Follow-up section Weightbearing Status: Left weightbearing (as tolerated) . Instructions / Follow-Up Instructions / Follow-Up RESUME YOUR PLAQUENIL IN 2 WEEKS. ACTIVITY RECOMMENDATIONS: SELF CARE INSTRUCTIONS AFTER TOTAL HIP REPLACEMENT Until the incision and soft tissues around your hip have healed, there is a possibility that the hip prosthesis could dislocate. A. Observe the following precautions to prevent dislocation: 1. Don't bend your hip greater than 90 degrees. 2. Avoid crossing your legs or ankles while standing or lying. 3. Sit with your feet placed 6 inches apart. 4. When sitting, keep your knees below your hips. Sit on a firm surface, avoid deep, soft chairs and couches. Use an elevated toilet seat in the bathroom. 5. Don't bend over at the waist. Use a long handled shoehorn and a sock aid to help you put on your shoes and socks. A culinary chef can help you tack picker objects that are too high or too low to reach. 6. Keep car riding to a minimum for at least one month after surgery. B. Your balance may be shaky for a while. Use crutches or a walker until directed by your doctor. C. Use hand rails when walking on stairs. D. Wear low heeled shoes with non-slip soles. E. Be sure that your floors are free of things that could trip you - throw rugs , electrical cords, small objects. Avoid wet and waxed floors, especially with crutches and canes. F. Try to walk several times a day with rest periods between. G. Continue with all the exercises taught to you in the hospital. Again, make walking a part of your daily routine. SPECIAL CARE INSTRUCTIONS: VERY IMPORTANT TO READ AND REVIEW A. You may still be at risk for phlebitis and blood clots. 1. Wear surgical stockings (YONG hose) for 2 weeks after surgery to improve circulation and reduce swelling. 2. Take Aspirin 81mg twice daily for 4 weeks or as directed by your doctor. This is your blood thinner. 3. High risk patients may be prescribed a stronger blood thinner if necessary. 4. If you are on Coumadin normally, your family doctor/foreign collection clerk should monitor your blood work. Expect a phone call the day of or the day after bloodwork is drawn to adjust your dosage. B. You must take antibiotics before having dental work, bladder, bowel and other surgery. Your doctor will provide you with a permanent card to carry describing precautions. C. Call [facility] if you have a fever, redness or swelling around the incision, cloudy drainage from incision, or sudden increase in pain in your hip, not relieved by your regular pain medication. D. Please call the office at if you have any concerns or questions about your operation or recovery. * YOU MAY SHOWER, NO TUB BATHS UNTIL CLEARED BY YOUR DOCTOR. * WEAR YONG HOSE 20 HOURS PER DAY FOR 2 WEEKS. * YOU SHOULD USE A WALKER OR CRUTCHES FOR 2-4 WEEKS. THIS WILL HELP PREVENT STRAIN ON YOUR HIP MUSCLE AND ALLOW IT TO HEAL PROPERLY. YOU MAY WEAN TO A CANE TOLERATED. * MOST PATIENTS WILL HAVE HOME NURSING FOR THERAPY. IF YOU DECIDE TO DO OUTPATIENT PHYSICAL THERAPY, PLEASE SCHEDULE THIS 3 TIMES PER WEEK. * DAILY DRESSING CHANGES WITH 4X4 GAUZE. KEEP WOUND COVERED UNTIL YOU RETURN TO THE OFFICE. IF YOU HAVE ANY INCREASED DRAINAGE, REDNESS, OR PAIN, PLEASE CALL THE OFFICE. [phone]. FOLLOW UP VISIT: If appointment is not already scheduled: Please call [facility] to make a follow-up appointment for 2 weeks after your surgery at . Current Hospital Diet Patient's current hospital diet: Regular Diet Discharge Diet Recommended Diet: Regular Diet Procedures Procedures Performed: Left Total Hip Revision, Conversion of Acetabular Liner to Stemmed Liner, Revision of Acetabular Femoral Head Pending Studies Studies pending at discharge: no Laboratory Results Hemoglobin A1c Test 08/06/16 11:44 Range/Units Estimated Average Glucose 114 mg/dl Hemoglobin A1c 5.6 4.5-5.6 % Medical Emergencies . Who to Call and When: Medical Emergencies: If at any time you feel your situation is an emergency, please call 911 immediately. . Non-Emergent Contact Non-Emergency issues call your: Surgeon Call Non-Emergent contact if: temperature is above 101.5, your pain is not controlled, your pain is worsening, wound has increased drainage, wound has increased redness . "Provider Documentation" section prepared by Dioni Coppola. . VTE Core Measure Inpt VTE Proph given/why not?: Other Anticoagulation, T.E.D. Stockings, SCD's [place] Drug Monitoring Program Search Results: patient reviewed within database, no issues identified
[2016-08-22 11:34] VITALS: BP 101/61; PULSE 66; TEMP 37.1; O2SAT 98
[2016-08-22 12:02] VITALS: BP 113/70; PULSE 74; O2SAT 97
[2016-08-22 15:05] VITALS: BP 123/64; PULSE 72; TEMP 37.5; O2SAT 94
[2016-08-22] MEDS: TRAZODONE HCL 50 MG TAB PO SCH (21:32)
[2016-08-22] MEDS: SENNA 8.6 MG TAB PO SCH (21:33)
[2016-08-22] MEDS: SIMVASTATIN 40 MG TAB PO SCH (21:34)
[2016-08-22 22:50] VITALS: BP 95/53; PULSE 65; TEMP 37.1; O2SAT 95
[2016-08-23] MEDS: TRAMADOL HCL 50 MG TAB PO PRN (00:50)
[2016-08-23] MEDS: ACETAMINOPHEN 500 MG TAB PO SCH (05:21)
[2016-08-23] MEDS: OXYCODONE HCL IR 5 MG TAB (IMMEDIATE RELEASE) PO PRN ×2 (05:22→11:07)
[2016-08-23 06:36] VITALS: BP 93/58; PULSE 75; TEMP 37.1; O2SAT 94
[2016-08-23] MEDS: LISINOPRIL 5 MG TAB PO SCH (07:59)
[2016-08-23] MEDS: ASPIRIN 81 MG ECTAB PO SCH (07:59)
[2016-08-23] MEDS: DOCUSATE SODIUM 100 MG CAP PO SCH (07:59)
[2016-08-23] MEDS: FERROUS GLUCONATE 324 MG TAB PO SCH (07:59)
[2016-08-23] MEDS: PANTOprazole SOD 40 MG TAB PO SCH (07:59)
[2016-08-23] MEDS: MULTIVITAMIN TAB PO SCH (07:59)
[2016-08-23] MEDS: CHOLECALCIFEROL 1000 INTER.UNIT TAB PO SCH (08:00)
--- NOTE | 2016-08-23 09:23 | Orthopedic Progress Note ---
Orthopedic Progress Note Date of Service Aug 23, 2016. Subjective Post OP Day: 2 Reports: feeling well, pain controlled w PO medications, Denies: chest pain, nausea / vomiting, light headedness, calf pain Objective calves soft nontender, N/V intact, hip located, incision C/D/I, A&O x3, toes mobile Date Time Temp Pulse Resp B/P (MAP) Pulse Ox O2 Delivery O2 Flow Rate FiO2 08/23/16 07:24 Room Air 08/23/16 06:36 37.1 75 18 93/58 (70) 94 Room Air 08/23/16 00:00 Room Air 08/22/16 22:50 37.1 65 18 95/53 (67) 95 Room Air 08/22/16 15:20 Room Air 08/22/16 15:05 37.5 72 16 123/64 (83) 94 Room Air 08/22/16 12:02 74 97 08/22/16 11:34 37.1 66 17 101/61 (74) 98 Room Air Assessment & Plan Assessment: 60 yo male stable POD #2 s/p left DILEEP revision to constrained acetabulum Plan: Continue PT Plan for dc to home today Inhouse Planning Pain Management: Ultram, PO Tylenol, Oxy IR DVT Prophylaxis: TEDs, ASA Discharge Planning Discharge Planning: home with home health Pain Management: PO Tylenol, Oxy IR DVT Prophylaxis: TEDs, ASA Therapy: Physical Therapy
[2016-08-23] MEDS ORDERED: OXYC1CAP5 PO (09:28)
[2016-08-23] MEDS ORDERED: ACET-24 PO (09:28)
[2016-08-23] MEDS ORDERED: SNK PO (09:28)
[2016-08-23] MEDS ORDERED: ASPI-435 PO (09:28)
[2016-08-23 09:51] VITALS: BP 93/58; PULSE 75; TEMP 37.1; O2SAT 94
--- NOTE | 2016-08-23 11:44 | Discharge Summary ---
Orthopedic Discharge Summary Admission Date/Reason Aug 21, 2016 at 10:28 Chronic Left Hip Dislocation. Discharge Date/Disposition Aug 23, 2016 Home with services Diagnosis Principal Diagnosis: Chronic Left DILEEP Instability Secondary Diagnoses/Problems: Htn, Hyperlipidemia, PE Procedure(s) Performed Left Revison Acetabulum and liner to constrained liner; revision femoral head Medication Reconciliation New Medications: Acetaminophen (Sb Non-Aspirin Extra Stre) 500 Mg Tab 1000 MG PO Q8H for 30 Days, #180 TAB Senna (Senna Lax) 8.6 Mg Tab 17.2 MG PO HS, #30 TAB HOLD FOR LOOSE STOOLS Changed Medications: Aspirin (Aspirin 81) 81 Mg Tab 81 MG PO BID for 30 Days (Changed from: QAM) AFTER 30 DAYS, STOP TAKING TABLET TWICE DAILY AND RESUME YOUR ONCE DAILY DOSING Oxycodone Hcl (Oxycodone Hcl) 5 Mg Cap 1-2 CAP PO Q4H PRN for RN, #60 CAP (Changed from: Q6H; Removed Days) Continued Medications: Atenolol (Tenormin) 25 Mg Tab 12.5 MG PO QAM, TAB Cholecalciferol (Vitamin D3) 1,000 Inter.unit Tab 5000 UNITS PO QAM Lisinopril (Prinivil) 5 Mg Tab 5 MG PO QAM, TAB Omeprazole (Prilosec) 20 Mg Cap 20 MG PO QPM, CAP Prednisone (Prednisone) 5 Mg Tab 5 MG PO QAM, TAB Simvastatin (Zocor) 40 Mg Tab 40 MG PO QPM, TAB Tramadol (Ultram) 50 Mg Tab 50 MG PO Q4H PRN for Pain, TAB Trazodone Hcl (Desyrel) 50 Mg Tab 50 MG PO HS, TAB Discontinued Medications: Hydroxychloroquine Sulfate (Plaquenil) 200 Mg Tab 200 MG PO QPM, TAB Admission Physical Exam As per Admitting History & Physical. Hospital Course Patient was admitted on the above-noted date and had the above-noted procedure performed of which he tolerated well. On his first postoperative day, he was remaining stable and had no complaints pain was controlled her symptoms are stable and he was afebrile and he was started on his physical therapy protocol and continued on DVT prophylaxis and pain management. Hemoglobin was 12.8. By his second postoperative day he continued to remain stable. Vital signs were stable and he was afebrile. His wound is remaining benign and he was progressing well with his physical therapy. Multiple questions were answered about his surgery and the patient was looking forward to being discharged. Pain was controlled and he is otherwise stable and was felt that he can be discharged home on 08/23/2016. Discharge Instructions Please refer to the electronic Patient Visit Report (Discharge Instructions) for additional information.
[2016-08-31] MEDS ORDERED: OXYC1CAP5 PO (10:38)
== END 2016-08-23 11:31 | disposition home health service (06) | DRG 468 ==
LOC: C.ACU 10:20 → C.3E 10:28 → ENRESERV 15:49
PROC: 0SRE0JA Replacement of Left Hip Joint, Acetabular Surface with Synthetic Substitute, Uncemented, Open Approach (ICD-10-PCS; principal; 2016-08-21 12:00)
PROC: 0SPB09Z Removal of Liner from Left Hip Joint, Open Approach (ICD-10-PCS; principal; 2016-08-21 12:00)
PROC: 0SUE09Z Supplement Left Hip Joint, Acetabular Surface with Liner, Open Approach (ICD-10-PCS; principal; 2016-08-21 12:00)
DX: T84.021A Dislocation of internal left hip prosthesis, initial encounter (principal); Y83.1 Surgical operation with implant of artificial internal device as the cause of abnormal reaction of the patient, or of later complication, without mention of misadventure at the time of the procedure; Y79.2 Prosthetic and other implants, materials and accessory orthopedic devices associated with adverse incidents; Z79.82 Long term (current) use of aspirin; Z79.899 Other long term (current) drug therapy; Z79.52 Long term (current) use of systemic steroids

== ENCOUNTER 2016-08-29 18:23 | Inpatient (IN) | payer BC ==
[~2016-08-29] VITALS: Ht 190.5 cm; Wt 127.0 kg
[~2016-08-29 18:23] MED LIST changes: +ACET-24 PO; -ACETAMINOPHEN 500 MG TAB PO SCH; -BUPIVACAINE 0.5 % 5 MG/1 ML PF 10ML VIAL ONE; -CEFAZOLIN 3000 MG/65 ML D5W 65 ML IV SCH; -DEXAMETHASONE 4 MG TAB PO SCH; -FAMOTIDINE 20 MG TAB PO SCH; -GABAPENTIN 300 MG CAP PO SCH; -HYDR200T5 PO; -LACTATED RINGER'S 1000ML 1,000 ML IV SCH; -LACTATED RINGER'S 1000ML IV SCH; -ROPIVACAINE 5MG/ML 30 ML 150 MG, BUPIVACAINE/EPINEPHR 0.5% MPF 30 ML, KETOROLAC TROMETH... INFIL SCH; +SNK PO
[2016-08-29] MEDS ORDERED: SODIUM CHLORIDE 0.9% 1000ML 1,000 ML IV STA (19:41)
[2016-08-29] MEDS ORDERED: KETOROLAC TROMETHAMINE 30 MG/ML VIAL IV STA (19:41)
--- NOTE | 2016-08-29 19:48 | DIAGNOSTIC IMAGING REPORT ---
SINGLE VIEW CHEST CLINICAL HISTORY: Fever and chills. FINDINGS: An AP, portable, upright chest radiograph is compared to study dated 08/06/2016. The examination is degraded by portable technique and apical lordotic positioning. The heart is mildly enlarged and there is atherosclerotic calcification of the thoracic aorta. Chronic interstitial thickening is similar to previous. The lungs and pleural spaces are clear. No pneumothorax is seen. The bony thorax is grossly intact. IMPRESSION: Cardiomegaly with no active disease in the chest. Electronically signed by: Dameon Gray M.D. 08/29/2016 7:47 PM Dictated Date/Time: 08/29/2016 7:46 PM
--- NOTE | 2016-08-29 19:57 | DIAGNOSTIC IMAGING REPORT ---
SINGLE VIEW PELVIS CLINICAL HISTORY: Left hip pain. Recent surgery. FINDINGS: 2 AP pelvic radiographs are compared to study dated 02/08/2015. The skeletal structures are osteopenic. No fracture is seen in the hips or bony pelvis. A left hip arthroplasty is in near-anatomic alignment. 2 cortical lag screws transfix the acetabular cup. Mild arthritic change is seen in the right hip. Mild sclerosis is observed in the sacroiliac joints. Lumbosacral spondylosis is partially imaged. Soft tissue edema overlies the left hip and is likely related to the reported history of recent surgery. Pelvic phleboliths are observed. IMPRESSION: 1. No acute bony abnormality is seen in the pelvis noting a left hip arthroplasty in place. 2. Osteopenia and mild degenerative change as above. 3. Soft tissue swelling is present overlying the left hip, likely related to the reported history of recent surgery. Electronically signed by: Dameon Gray M.D. 08/29/2016 7:55 PM Dictated Date/Time: 08/29/2016 7:53 PM
[2016-08-29] MEDS ORDERED: OPTIRAY 320 IV PRN (20:15)
[2016-08-29 20:17] LABS: BASO % 0.3 %; BASO ABS # 0.04 K/uL (0-0.2); COMPLETE YES; EOS % 0.1 %; HEMATOCRIT 39.7 % (42-52); IG% 0.4 %; LYMPH % 21.7 %; LYMPH ABS # 3.36 K/uL (1.2-3.4); MEAN CELL VOLUME 93.4 fL (80-100); MEAN CORPUSCULAR HEMOGLOBIN 32.7 pg (25-34); MEAN PLATELET VOLUME 9.2 fL (7.4-10.4); MONO % 5.8 %; NEUT % 71.7 %; PLATELET COUNT 402 K/uL (130-400); RED BLOOD COUNT 4.25 M/uL (4.7-6.1); WHITE BLOOD COUNT 15.49 K/uL (4.8-10.8)
[2016-08-29 20:18] LABS: ISTAT CREATININE 1.2 mg/dl (0.6-1.3); ISTAT HEMOGLOBIN 13.9 g/dl (14.0-18.0); ISTAT IONIZED CALCIUM 1.12 mmol/l (1.12-1.32)
[2016-08-29 20:34] LABS: ALT/SGPT 30 U/L (12-78); BLOOD UREA NITROGEN 21 mg/dl (7-18); BUN/CREATININE RATIO 16.2 (10-20); CARBON DIOXIDE 25 mmol/L (21-32); CHLORIDE 103 mmol/L (98-107); GLUCOSE 93 mg/dl (70-99); POTASSIUM 4.2 mmol/L (3.5-5.1); SODIUM 137 mmol/L (136-145)
[2016-08-29 20:45] LABS: ALKALINE PHOSPHATASE 61 U/L (45-117); AST/SGOT 20 U/L (15-37); CKMB/CK RATIO 0.8 (0-3.0); THYROID STIMULATING HORMONE 0.402 uIu/ml (0.300-4.500)
[2016-08-29 21:36] LABS: URINE APPEARANCE CLOUDY (CLEAR); URINE BILIRUBIN NEG (NEG); URINE COLOR DK YELLOW; URINE NITRITE NEG (NEG); URINE PH >= 9.0 (4.5-7.5); URINE SPECIFIC GRAVITY 1.025 (1.000-1.030); UROBILINOGEN NEG (NEG)
[2016-08-29 21:47] LABS: MANUAL MICROSCOPIC REQUIRED? NO; REVIEW REQ? NO
[2016-08-29 21:49] LABS: SULFASALICYLIC ACID NEG (NEG)
--- NOTE | 2016-08-29 22:03 | DIAGNOSTIC IMAGING REPORT ---
ULTRASOUND BILATERAL LOWER EXTREMITY VENOUS CLINICAL HISTORY: Lower extremity edema. COMPARISON STUDY: No priors. TECHNIQUE: Real-time, grayscale, and color Doppler sonography of the deep veins of the right and left lower extremity was performed from the inguinal crease to the calf. Compression and augmentation were utilized. FINDINGS: There is no sonographic evidence of deep venous thrombosis identified in the right or left lower extremity. The common femoral, superficial femoral, and popliteal veins are patent and normally compressible bilaterally. The greater saphenous vein and the profunda femoris vein at the junction with the common femoral vein are clear in both legs. The visualized calf veins are patent bilaterally. IMPRESSION: There is no sonographic evidence of deep venous thrombosis identified in the right or left lower extremity. Electronically signed by: Dameon Gray M.D. 08/29/2016 10:02 PM Dictated Date/Time: 08/29/2016 10:02 PM
--- NOTE | 2016-08-29 22:06 | DIAGNOSTIC IMAGING REPORT ---
CT SCAN OF THE BRAIN WITHOUT IV CONTRAST CLINICAL HISTORY: Change in mental status. COMPARISON STUDY: CT of the brain dated 07/24/2015. TECHNIQUE: Unenhanced axial CT scan of the brain is performed from the vertex to the skull base. Automated dose control exposure was utilized. CT DOSE: 634.23 mGy.cm FINDINGS: Brain parenchyma: The brain parenchyma is normal in appearance. There is no hemorrhage, mass effect, or evidence of acute territorial ischemia by CT criteria. Esparza-white matter is preserved. No extra-axial fluid collection is seen. Ventricles, sulci, cisterns: Normal in configuration. Intracranial vasculature: There is atherosclerotic calcification of the cavernous carotid and vertebral arteries. Calvarium: Unremarkable. Sinuses and mastoids: The visualized paranasal sinuses are clear. The mastoid air cells are well pneumatized. Orbits: The bony orbits are grossly intact. IMPRESSION: There is no hemorrhage, mass effect, or evidence of acute territorial ischemia by CT criteria. Electronically signed by: Dameon Gray M.D. 08/29/2016 10:05 PM Dictated Date/Time: 08/29/2016 10:03 PM
--- NOTE | 2016-08-29 22:15 | DIAGNOSTIC IMAGING REPORT ---
CT ANGIOGRAM OF THE CHEST CLINICAL HISTORY: Lower extremity edema. Recent surgery. COMPARISON STUDY: Chest x-ray dated 08/29/2016. TECHNIQUE: Following the IV administration of 94 cc of Optiray 320, CT angiogram of the chest was performed from the upper abdomen to the thoracic inlet utilizing the pulmonary embolus protocol. Images are reviewed in the axial, sagittal, and coronal planes. 3-D MIPS images are created and assessed. IV contrast was administered without complication. CT DOSE: 681.10 mGy.cm FINDINGS: Thyroid: Imaged portions of the thyroid gland are normal in size and attenuation. Thoracic aorta: There is mild atherosclerotic calcification of the thoracic aorta, which is normal in caliber and demonstrates standard 3-vessel arch anatomy. No dissection is seen. Pulmonary vasculature: The pulmonary trunk is normal in caliber. There are no filling defects identified in main, lobar, or segmental pulmonary branches to suggest pulmonary embolus. Heart: The heart is enlarged and without pericardial effusion. Lungs and pleural spaces: The lungs and pleural spaces are clear noting dependent atelectasis. A 3 mm right middle lobe pulmonary nodule is seen on image #141. A 3 mm left upper lobe nodule seen image #153. A 2 mm focus of pleural-based thickening is seen in the left upper lobe lung minor fissure on image #148. The trachea and central airways are patent. Mediastinum: There is no mediastinal lymphadenopathy. Barbara: Clear. Axillae: There is no axillary lymphadenopathy. Upper abdomen: There is a small to moderate hiatal hernia. A normal spleen is not identified. Numerous splenules are present in the left upper quadrant. Skeletal structures: The skeletal structures appear osteopenic. No lytic or blastic bony lesions are seen. Degenerative change is noted throughout the thoracic spine. A large posterior disc osteophyte complex is seen at T5-T6. IMPRESSION: 1. There is no evidence of pulmonary embolus in the main, lobar, or segmental pulmonary arteries. 2. There is no airspace consolidation or pleural effusion. 3. Mild cardiomegaly. 4. There are 2 pulmonary nodules in the right lung measuring up to 3 mm. These are of low suspicion and can be followed if clinically warranted. See below. 5. A normal spleen is not identified and there are numerous splenules in the left upper quadrant. Correlation with the patient's medical/surgical history will be required. Please refer to below summary of Fleischner criteria recommendations for follow-up of incidental CT nodules (Mauricio Sherman, Guidelines for management of small pulmonary nodules detected on CT scans: A statement from the Fleischner Society, Radiology 237: [phone].) SOLID NODULES Solitary nodule size: <6 mm * low risk patients: no follow-up needed * high risk patients: optional CT at 12 months Solitary nodule size: 6-8 mm * low risk patients: follow-up at 6-12 months, then consider further follow-up at 18-24 months * high risk patients: initial follow-up CT at 6-12 months and then at 18-24 months if no change Solitary nodule size: >8 mm * either low or high risk patients - consider follow-up CT at 3 months, and/or CT-PET, and/or biopsy Multiple nodules size: <6 mm * low risk patients: no routine follow-up * high risk patients: optional CT at 12 months Multiple nodules size: 6-8 mm * low risk patients: follow-up at 3-6 months, then consider further follow-up at 18-24 months * high risk patients: follow-up at 3-6 months, then at 18-24 months if no change Multiple nodules size: >8 mm * low risk patients: follow-up at 3-6 months, then consider further follow-up at 18-24 months * high risk patients: follow-up at 3-6 months, then at 18-24 months if no change Note: newly detected indeterminate nodule in persons 35 years of age or older. * low risk patients: minimal or absent history of smoking and/or other known risk factors * high risk patients: history of smoking or of other known risk factors (e.g. first degree relative with lung cancer, or exposure to asbestos, radon, uranium) * if a nodule up to 8 mm is partly solid or is ground glass further follow-up is required after 24 months to exclude possible slow growing adenocarcinoma (MATT) SUBSOLID NODULES Solitary pure ground-glass nodule * nodule size <6 mm - no CT follow-up required * nodule size >=6 mm - follow-up CT at 6-12 months, then every 2 years until 5 years Solitary part-solid nodule * nodule size <6 mm - no CT follow-up required * nodule size >=6 mm - follow-up CT at 3-6 months. If unchanged, and solid component remains <6 mm, then annual follow-up for 5 years Multiple subsolid nodules * nodule size <6 mm - follow-up CT at 3-6 months, consider further follow-up at 2 and 4 years if stable * nodule size >=6 mm - follow-up CT at 3-6 months, subsequent management based on the most suspicious nodule(s) Electronically signed by: Dameon Gray M.D. 08/29/2016 10:13 PM Dictated Date/Time: 08/29/2016 10:03 PM
[2016-08-29] MEDS ORDERED: SODIUM CHLORIDE 0.9% IV STA (22:54)
[2016-08-29] MEDS ORDERED: PIPERACILLIN/TAZOBACTAM 4.5 GM/100ML D5W IV STA (22:54)
[2016-08-29] MEDS ORDERED: DAPTOMYCIN IV STA (22:54)
[2016-08-29] MEDS ORDERED: ASPIRIN 81 MG ECTAB PO STA (23:32)
--- NOTE | 2016-08-29 23:44 | EMERGENCY ROOM VISIT NOTE ---
History Report prepared by Natasha: Sally Daley Under the Supervision of: Dr. Nick Singh M.D. First contact with patient: 19:05 Chief Complaint: ILLNESS Stated Complaint: JUST HAD SURG, HEADACHE, HOT/COLD,DOESNT FEEL WELL History of Present Illness The patient is a 61 year old male who presents to the Emergency Room with complaints of persistent illness starting several days ago. The patient had left hip replacement surgery 1 week ago. He has not felt well since then. He reports fever, diaphoresis, chills, dizziness, head congestion, trouble hearing , nasal drip, SOB, nausea, weakness, fatigue, and abdominal pain. Several days ago, he woke up in the morning and noticed his bed was soaked with sweat. He was constipated today, but was able to having bowel movements after a suppository. He had a headache a couple days ago which resolved. He currently has tingling in his left hand and numbness in his right thumb. He denies any chest pain. He does not smoke. He has a history of blood clots. His symptoms feel similar to his previous blood clot. Source of History: patient Onset: several days ago Position: other (global) Quality: other (illness) Timing: other (persistent) Associated Symptoms: + fevers, + chills, + headache, + diaphoresis, + SOB, + nausea, + abdominal pain, + fatigue, + weakness, + numbness, No chest pain Note: Pt reports congestion, trouble hearing, dizziness. Review of Systems See HPI for pertinent positives & negatives. A total of 10 systems reviewed and were otherwise negative. Past Medical & Surgical Medical Problems: (1) Arthritis of left hip (2) Asplenia (3) Fever and chills (4) Left DILEEP Instability (5) Weakness Surgical Problems: (1) H/O rotator cuff surgery (2) S/P hip replacement (3) S/P knee replacement Family History Gallbladder disease Heart disease Hypertension Kidney disease Kidney stones Social History Smoking Status: Former Smoker Alcohol Use: none Marital Status: single Housing Status: lives with family Occupation Status: employed Current/Historical Medications Scheduled Acetaminophen (Sb Non-Aspirin Extra Stre), 1,000 MG PO Q8H Aspirin (Aspirin 81), 81 MG PO BID Atenolol (Tenormin), 12.5 MG PO QAM Cholecalciferol (Vitamin D3), 5,000 UNITS PO QAM Lisinopril (Prinivil), 5 MG PO QAM Omeprazole (Prilosec), 20 MG PO QPM Prednisone (Prednisone), 5 MG PO QAM Senna (Senna Lax), 17.2 MG PO HS Simvastatin (Zocor), 40 MG PO QPM Trazodone Hcl (Desyrel), 50 MG PO HS Scheduled PRN Oxycodone Hcl (Oxycodone Hcl), 1 CAP PO Q8H PRN for RN Tramadol (Ultram), 50 MG PO Q4H PRN for Pain Allergies Coded Allergies: No Known Allergies (Unverified , 08/29/16) Physical Exam Vital Signs Date Time Temp Pulse Resp B/P (MAP) Pulse Ox O2 Delivery O2 Flow Rate FiO2 08/29/16 23:30 59 21 118/59 97 Room Air 08/29/16 23:00 59 19 114/65 95 Room Air 08/29/16 22:38 59 18 97 08/29/16 22:37 61 20 122/65 93 Room Air 08/29/16 22:37 122/65 08/29/16 22:31 61 08/29/16 22:31 106/56 08/29/16 22:16 129/66 08/29/16 22:13 60 121/58 70 106/58 72 129/66 08/29/16 22:12 93 Room Air 08/29/16 21:12 61 18 116/58 97 Room Air 08/29/16 18:26 36.8 80 24 130/75 100 Room Air Physical Exam GENERAL: Patient is a healthy-appearing well-nourished male HEAD: Normocephalic atraumatic EYES: Ocular movements intact pupils equal and react to light OROPHARYNX mucous membranes are moist no exudates present no erythema or edema present NECK: Supple no nuchal rigidity CHEST: Good equal expansion LUNGS: Clear and equal to auscultation CARDIAC: Normal S1 and S2 ABDOMEN: Soft nontender no guarding BACK: No CVA tenderness PELVIS: No evidence of infection, healing well, surgical sutures are in place. EXTREMITIES: No pain upon palpation normal muscle strength in all groups no clubbing cyanosis or edema NEURO: Patient is following commands and answering questions appropriately. Alert and oriented x3 Cranial Nerves 2-12 grossly intact Medical Decision & Procedures ER Provider Diagnostic Interpretation: X-ray results as stated below per interpretation by me and the radiologist. Radiology results as stated below per my review and radiologist interpretation: SINGLE VIEW CHEST CLINICAL HISTORY: Fever and chills. FINDINGS: An AP, portable, upright chest radiograph is compared to study dated 08/06/2016. The examination is degraded by portable technique and apical lordotic positioning. The heart is mildly enlarged and there is atherosclerotic calcification of the thoracic aorta. Chronic interstitial thickening is similar to previous. The lungs and pleural spaces are clear. No pneumothorax is seen. The bony thorax is grossly intact. IMPRESSION: Cardiomegaly with no active disease in the chest. Electronically signed by: Dameon Gray M.D. 08/29/2016 7:47 PM Dictated Date/Time: 08/29/2016 7:46 PM SINGLE VIEW PELVIS CLINICAL HISTORY: Left hip pain. Recent surgery. FINDINGS: 2 AP pelvic radiographs are compared to study dated 02/08/2015. The skeletal structures are osteopenic. No fracture is seen in the hips or bony pelvis. A left hip arthroplasty is in near-anatomic alignment. 2 cortical lag screws transfix the acetabular cup. Mild arthritic change is seen in the right hip. Mild sclerosis is observed in the sacroiliac joints. Lumbosacral spondylosis is partially imaged. Soft tissue edema overlies the left hip and is likely related to the reported history of recent surgery. Pelvic phleboliths are observed. IMPRESSION: 1. No acute bony abnormality is seen in the pelvis noting a left hip arthroplasty in place. 2. Osteopenia and mild degenerative change as above. 3. Soft tissue swelling is present overlying the left hip, likely related to the reported history of recent surgery. Electronically signed by: Dameon Gray M.D. 08/29/2016 7:55 PM Dictated Date/Time: 08/29/2016 7:[address] SCAN OF THE BRAIN WITHOUT IV CONTRAST CLINICAL HISTORY: Change in mental status. COMPARISON STUDY: CT of the brain dated 07/24/2015. TECHNIQUE: Unenhanced axial CT scan of the brain is performed from the vertex to the skull base. Automated dose control exposure was utilized. CT DOSE: 634.23 mGy.cm FINDINGS: Brain parenchyma: The brain parenchyma is normal in appearance. There is no hemorrhage, mass effect, or evidence of acute territorial ischemia by CT criteria. Esparza-white matter is preserved. No extra-axial fluid collection is seen. Ventricles, sulci, cisterns: Normal in configuration. Intracranial vasculature: There is atherosclerotic calcification of the cavernous carotid and vertebral arteries. Calvarium: Unremarkable. Sinuses and mastoids: The visualized paranasal sinuses are clear. The mastoid air cells are well pneumatized. Orbits: The bony orbits are grossly intact. IMPRESSION: There is no hemorrhage, mass effect, or evidence of acute territorial ischemia by CT criteria. Electronically signed by: Dameon Gray M.D. 08/29/2016 10:05 PM Dictated Date/Time: 08/29/2016 10:03 PM ULTRASOUND BILATERAL LOWER EXTREMITY VENOUS CLINICAL HISTORY: Lower extremity edema. COMPARISON STUDY: No priors. TECHNIQUE: Real-time, grayscale, and color Doppler sonography of the deep veins of the right and left lower extremity was performed from the inguinal crease to the calf. Compression and augmentation were utilized. FINDINGS: There is no sonographic evidence of deep venous thrombosis identified in the right or left lower extremity. The common femoral, superficial femoral, and popliteal veins are patent and normally compressible bilaterally. The greater saphenous vein and the profunda femoris vein at the junction with the common femoral vein are clear in both legs. The visualized calf veins are patent bilaterally. IMPRESSION: There is no sonographic evidence of deep venous thrombosis identified in the right or left lower extremity. Electronically signed by: Dameon Gray M.D. 08/29/2016 10:02 PM Dictated Date/Time: 08/29/2016 10:[address] ANGIOGRAM OF THE CHEST CLINICAL HISTORY: Lower extremity edema. Recent surgery. COMPARISON STUDY: Chest x-ray dated 08/29/2016. TECHNIQUE: Following the IV administration of 94 cc of Optiray 320, CT angiogram of the chest was performed from the upper abdomen to the thoracic inlet utilizing the pulmonary embolus protocol. Images are reviewed in the axial, sagittal, and coronal planes. 3-D MIPS images are created and assessed. IV contrast was administered without complication. CT DOSE: 681.10 mGy.cm FINDINGS: Thyroid: Imaged portions of the thyroid gland are normal in size and attenuation. Thoracic aorta: There is mild atherosclerotic calcification of the thoracic aorta, which is normal in caliber and demonstrates standard 3-vessel arch anatomy. No dissection is seen. Pulmonary vasculature: The pulmonary trunk is normal in caliber. There are no filling defects identified in main, lobar, or segmental pulmonary branches to suggest pulmonary embolus. Heart: The heart is enlarged and without pericardial effusion. Lungs and pleural spaces: The lungs and pleural spaces are clear noting dependent atelectasis. A 3 mm right middle lobe pulmonary nodule is seen on image #141. A 3 mm left upper lobe nodule seen image #153. A 2 mm focus of pleural-based thickening is seen in the left upper lobe lung minor fissure on image #148. The trachea and central airways are patent. Mediastinum: There is no mediastinal lymphadenopathy. Barbara: Clear. Axillae: There is no axillary lymphadenopathy. Upper abdomen: There is a small to moderate hiatal hernia. A normal spleen is not identified. Numerous splenules are present in the left upper quadrant. Skeletal structures: The skeletal structures appear osteopenic. No lytic or blastic bony lesions are seen. Degenerative change is noted throughout the thoracic spine. A large posterior disc osteophyte complex is seen at T5-T6. IMPRESSION: 1. There is no evidence of pulmonary embolus in the main, lobar, or segmental pulmonary arteries. 2. There is no airspace consolidation or pleural effusion. 3. Mild cardiomegaly. 4. There are 2 pulmonary nodules in the right lung measuring up to 3 mm. These are of low suspicion and can be followed if clinically warranted. See below. 5. A normal spleen is not identified and there are numerous splenules in the left upper quadrant. Correlation with the patient's medical/surgical history will be required. Please refer to below summary of Fleischner criteria recommendations for follow-up of incidental CT nodules (Mauricio Sherman, Guidelines for management of small pulmonary nodules detected on CT scans: A statement from the Fleischner Society, Radiology 237: [phone].) SOLID NODULES Solitary nodule size: <6 mm * low risk patients: no follow-up needed * high risk patients: optional CT at 12 months Solitary nodule size: 6-8 mm * low risk patients: follow-up at 6-12 months, then consider further follow-up at 18-24 months * high risk patients: initial follow-up CT at 6-12 months and then at 18-24 months if no change Solitary nodule size: >8 mm * either low or high risk patients - consider follow-up CT at 3 months, and/or CT-PET, and/or biopsy Multiple nodules size: <6 mm * low risk patients: no routine follow-up * high risk patients: optional CT at 12 months Multiple nodules size: 6-8 mm * low risk patients: follow-up at 3-6 months, then consider further follow-up at 18-24 months * high risk patients: follow-up at 3-6 months, then at 18-24 months if no change Multiple nodules size: >8 mm * low risk patients: follow-up at 3-6 months, then consider further follow-up at 18-24 months * high risk patients: follow-up at 3-6 months, then at 18-24 months if no change Note: newly detected indeterminate nodule in persons 35 years of age or older. * low risk patients: minimal or absent history of smoking and/or other known risk factors * high risk patients: history of smoking or of other known risk factors (e.g. first degree relative with lung cancer, or exposure to asbestos, radon, uranium) * if a nodule up to 8 mm is partly solid or is ground glass further follow-up is required after 24 months to exclude possible slow growing adenocarcinoma (MATT) SUBSOLID NODULES Solitary pure ground-glass nodule * nodule size <6 mm - no CT follow-up required * nodule size >=6 mm - follow-up CT at 6-12 months, then every 2 years until 5 years Solitary part-solid nodule * nodule size <6 mm - no CT follow-up required * nodule size >=6 mm - follow-up CT at 3-6 months. If unchanged, and solid component remains <6 mm, then annual follow-up for 5 years Multiple subsolid nodules * nodule size <6 mm - follow-up CT at 3-6 months, consider further follow-up at 2 and 4 years if stable * nodule size >=6 mm - follow-up CT at 3-6 months, subsequent management based on the most suspicious nodule(s) Electronically signed by: Dameon Gray M.D. 08/29/2016 10:13 PM Dictated Date/Time: 08/29/2016 10:03 PM Laboratory Results Test 08/29/16 19:50 08/29/16 20:03 08/29/16 20:07 08/29/16 21:15 Immature Granulocyte % (Auto) 0.4 % White Blood Count 15.49 K/uL (4.8-10.8) Red Blood Count 4.25 M/uL (4.7-6.1) Hemoglobin 13.9 g/dL (14.0-18.0) Hematocrit 39.7 % (42-52) Mean Corpuscular Volume 93.4 fL (80-100) Mean Corpuscular Hemoglobin 32.7 pg (25-34) Mean Corpuscular Hemoglobin Concent 35.0 g/dl (32-36) Platelet Count 402 K/uL (130-400) Mean Platelet Volume 9.2 fL (7.4-10.4) Neutrophils (%) (Auto) 71.7 % Lymphocytes (%) (Auto) 21.7 % Monocytes (%) (Auto) 5.8 % Eosinophils (%) (Auto) 0.1 % Basophils (%) (Auto) 0.3 % Neutrophils # (Auto) 11.11 K/uL (1.4-6.5) Lymphocytes # (Auto) 3.36 K/uL (1.2-3.4) Monocytes # (Auto) 0.90 K/uL (0.11-0.59) Eosinophils # (Auto) 0.02 K/uL (0-0.5) Basophils # (Auto) 0.04 K/uL (0-0.2) Immature Granulocyte # (Auto) 0.06 K/uL (0.00-0.02) Total Bilirubin 0.6 mg/dl (0.2-1) Direct Bilirubin 0.1 mg/dl (0-0.2) Aspartate Amino Transf (AST/SGOT) 20 U/L (15-37) Alanine Aminotransferase (ALT/SGPT) 30 U/L (12-78) Alkaline Phosphatase 61 U/L (45-117) Total Creatine Kinase 119 U/L (39-308) Creatine Kinase MB 0.9 ng/ml (0.5-3.6) Creatine Kinase MB Ratio 0.8 (0-3.0) Troponin I < 0.015 ng/ml (0-0.045) Total Protein 7.2 gm/dl (6.4-8.2) Albumin 3.1 gm/dl (3.4-5.0) Thyroid Stimulating Hormone (TSH) 0.402 uIu/ml (0.300-4.500) Bedside D-Dimer > 450 ng/mlFEU (0-450) Bedside Hemoglobin 13.9 g/dl (14.0-18.0) Bedside Hematocrit 41 % (42-52) Bedside Sodium 137 mEq/L (135-144) Bedside Potassium 4.4 mEq/L (3.3-5.0) Bedside Chloride 99 mEq/L (101-112) Bedside Total CO2 26 mEq/l (24-31) Bedside Blood Urea Nitrogen 23 mg/dl (7-18) Bedside Creatinine 1.2 mg/dl (0.6-1.3) Bedside Glucose (other) 98 mg/dl (70-99) Bedside Ionized Calcium ([place]) 1.12 mmol/l (1.12-1.32) Urine Color DK YELLOW Urine Appearance CLOUDY (CLEAR) Urine pH >= 9.0 (4.5-7.5) Urine Specific [place] 1.025 (1.000-1.030) Urine Protein NEG (NEG) Urine Glucose (UA) NEG (NEG) Urine Ketones NEG (NEG) Urine Occult Blood NEG (NEG) Urine Nitrite NEG (NEG) Urine Bilirubin NEG (NEG) Urine Urobilinogen NEG (NEG) Urine Leukocyte Esterase TRACE (NEG) Urine WBC (Auto) 1-5 /hpf (0-5) Urine RBC (Auto) 5-10 /hpf (0-4) Urine Hyaline Casts (Auto) 1-5 /lpf (0-5) Urine Epithelial Cells (Auto) 10-20 /lpf (0-5) Urine Bacteria (Auto) NEG (NEG) Labs reviewed by ED physician. Medications Administered Medications (Trade) Dose Ordered Sig/Nupur Route Start Time Stop Time Status Last Admin Dose Admin Sodium Chloride 1,000 ml @ 999 mls/hr Q1H1M STAT IV 08/29/16 19:41 08/29/16 20:41 DC 08/29/16 20:00 999 MLS/HR Ketorolac Tromethamine (Toradol Inj) 30 mg NOW STAT IV 08/29/16 19:41 08/29/16 19:42 DC 08/29/16 20:05 30 MG Piperacillin Sod/ Tazobactam Sod (Zosyn Iv) 4.5 gm NOW STAT IV 08/29/16 22:54 08/29/16 22:56 DC 08/29/16 23:24 4.5 GM Daptomycin 762 mg/ Sodium Chloride 65.24 ml @ 100 mls/hr NOW STAT IV 08/29/16 22:54 08/29/16 23:33 DC 08/30/16 00:01 100 MLS/HR Aspirin (Ecotrin Tab) 81 mg NOW STAT PO 08/29/16 23:32 08/30/16 00:04 DC 08/30/16 00:06 81 MG ECG Indication: SOB/dyspnea Rate (beats per minute): 63 Rhythm: sinus rhythm Findings: 1st degree AV block, no acute ischemic change, no ectopy ED Course 1933: Past medical records reviewed. The patient was evaluated in room C11B. A complete history and physical examination was performed. 1940: Toradol Inj 30 mg IV, NSS 1000 ml @ 999 mls/hr IV. 2244: I discussed the patient's case with Alexsander Lu hospitalist, he has agreed to evaluate the patient for further management and care. 2249: Upon reexamination the patient is resting comfortably. I discussed results and treatment plan with the patient. He verbalizes agreement and understanding. The patient will be evaluated for further management. 2253: Daptomycin 762 mg/Sodium Chloride 65.24 ml @ 100 mls/hr IV, Zosyn Iv 4.5 gm IV. Medical Decision Prior records/ancillary studies reviewed and summarized above. Nursing notes reviewed. Additional history obtained from family. The patient's history was concerning for weakness. Differential diagnosis: Etiologies such as metabolic, infection, hypo/hyperglycemia, electrolyte abnormalities, cardiac sources, intracerebral event, toxicologic, neurologic, as well as others were entertained. Medication Reconciliation: I attest that I have personally reviewed the patient' s current medication list Blood Pressure Screening: Patient was found to have normal blood pressure on screening and does not require follow up. This is a 61-year-old male who presents emergency Department with fever. I will note that the patient is asplenic. He does have a high elevation in his white blood count 15. The surgical site appears to be healing well. He does not have any evidence of pneumonia on x-ray and has no evidence of blood clots in his lower legs or his chest. I did start the patient on antibiotics and did discuss the case with the hospitalist service who agreed to admit the patient. Patient was in agreement with the treatment plan. Consults Time Called: [phone] Consulting Physician: Chente Luer hospitalist Returned Call: [phone] I discussed the patient's case with him, he has agreed to evaluate the patient for further management and care. Impression Primary Impression: Fever Scribe Attestation The scribe's documentation has been prepared under my direction and personally reviewed by me in its entirety. I confirm that the note above accurately reflects all work, treatment, procedures, and medical decision making performed by me. Departure Information Dispostion Being Evaluated By Hospitalist Prescriptions Oxycodone Hcl (OXYCODONE HCL) 5 Mg Cap 1 CAP PO Q8H Y for RN, #30 CAP Prov: Shanna Coe., S 08/31/16 Referrals Hong Zheng M.D. (PCP) Patient Instructions My [facility] Problem Qualifiers Primary Impression: Fever Fever type: unspecified Qualified Codes: R50.9 - Fever, unspecified
[2016-08-29] MEDS ORDERED: ACETAMINOPHEN 325 MG TAB PO PRN (23:45)
[2016-08-29] MEDS ORDERED: MAGNESIUM HYDROXIDE SUSP 30 ML UDC PO PRN (23:45)
[2016-08-29] MEDS ORDERED: ONDANSETRON INJ 2 MG/ML 2 ML VIAL IV PRN (23:45)
[2016-08-29] MEDS ORDERED: ALUMINUM/MAGNESIUM/SIMETH (MAALOX MAX) 30 ML UDC PO PRN (23:45)
[2016-08-30] MEDS ORDERED: POLYETHYLENE (MIRALAX) 17 GM PACK PO PRN (01:45)
[2016-08-30] MEDS: OXYCODONE HCL IR 5 MG TAB (IMMEDIATE RELEASE) PO PRN ×3 (01:59→20:27)
[2016-08-30] MEDS: ONDANSETRON INJ 2 MG/ML 2 ML VIAL IV PRN ×2 (01:59→15:40)
[2016-08-30 02:11] VITALS: BP 129/69; PULSE 56; TEMP 36.9; O2SAT 97; Ht 190.5 cm; Wt 127.0 kg
--- NOTE | 2016-08-30 02:19 | History and Physical ---
History & Physical Date & Time of Service: Aug 30, 2016 at 01:51 Chief Complaint: Asplenia, Fever And Chills, Weakness Primary Care Physician: oHng Zheng M.D. 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 of tobacco use with recent hip surgery on August 22, presents with fevers/chills, weakness - states that he's just not feeling well in the past few days. He was here last week for a hip surgery; states his L hip has dislocated multiple times and he had this surgically repaired. He was feeling well at home until August 29. States he's also felt constipated after taking Percocet - then started developing diarrhea and cramping prior to arrival. Denies chest pain, denies shortness of breath/palpitations. Past Medical/Surgical History Medical Problems: (1) Arthritis of left hip Status: Resolved Surgical Problems: (1) H/O rotator cuff surgery Status: Chronic (2) S/P hip replacement Status: Chronic (3) S/P knee replacement Status: Chronic Family History Gallbladder disease Heart disease Hypertension Kidney disease Kidney stones Social History Smoking Status: Former Smoker Marital Status: single Occupational Status: employed Allergies Coded Allergies: No Known Allergies (Unverified , 08/29/16) Home Medications Scheduled Acetaminophen (Sb Non-Aspirin Extra Stre), 1,000 MG PO Q8H Aspirin (Aspirin 81), 81 MG PO BID Atenolol (Tenormin), 12.5 MG PO QAM Cholecalciferol (Vitamin D3), 5,000 UNITS PO QAM Lisinopril (Prinivil), 5 MG PO QAM Omeprazole (Prilosec), 20 MG PO QPM Prednisone (Prednisone), 5 MG PO QAM Senna (Senna Lax), 17.2 MG PO HS Simvastatin (Zocor), 40 MG PO QPM Trazodone Hcl (Desyrel), 50 MG PO HS Scheduled PRN Oxycodone Hcl (Oxycodone Hcl), 1-2 CAP PO Q4H PRN for RN Tramadol (Ultram), 50 MG PO Q4H PRN for Pain Review of Systems Constitutional: + fever, + chills, + sweats, + weakness, + fatigue, No weight loss Eyes: No worsening of vision ENT: + nasal symptoms, No hearing loss Respiratory: No cough, No sputum, No wheezing, No shortness of breath, No dyspnea on exertion, No dyspnea at rest, No hemoptysis Cardiovascular: No chest pain, No edema, No palpitations Abdomen: + diarrhea, + constipation, No pain, No nausea, No vomiting, No GI bleeding Musculoskeletal: No joint pain, No muscle pain Genitourinary - Male: No hematuria, No dysuria, No urinary frequency, No urinary urgency, No urinary hesitancy, No urinary retention, No urinary incontinence Neurologic: + weakness, No numbness/tingling, No vertigo, No balance problems Psychiatric: No depression symptoms Endocrine: No fatigue, No excessive thirst, No excessive urination Hematologic / Lymphatic: No abnormal bleeding/bruising Integumentary: No rash Allergic / Immunologic: No environmental allergies, No seasonal allergies Physical Exam Vital Signs Date Time Temp Pulse Resp B/P (MAP) Pulse Ox O2 Delivery O2 Flow Rate FiO2 08/30/16 00:30 59 24 118/74 99 Room Air 08/30/16 00:00 55 17 98 Room Air 08/29/16 23:30 59 21 118/59 97 Room Air 08/29/16 23:00 59 19 114/65 95 Room Air 08/29/16 22:38 59 18 97 08/29/16 22:37 61 20 122/65 93 Room Air 08/29/16 22:37 122/65 08/29/16 22:31 61 08/29/16 22:31 106/56 08/29/16 22:16 129/66 08/29/16 22:13 60 121/58 70 106/58 72 129/66 08/29/16 22:12 93 Room Air 08/29/16 21:12 61 18 116/58 97 Room Air 08/29/16 18:26 36.8 80 24 130/75 100 Room Air General Appearance: no apparent distress Head: normocephalic, atraumatic Eyes: normal inspection ENT: hearing grossly normal Respiratory/Chest: chest non-tender, lungs clear, normal breath sounds, no respiratory distress, no accessory muscle use Cardiovascular: regular rate, rhythm, no edema, no murmur Abdomen/GI: non tender, soft, + abnormal bowel sounds (hyperactive bowel sounds ) Extremities/Musculoskelatal: no calf tenderness, normal capillary refill, no pedal edema Neurologic/Psych: no motor/sensory deficits, alert, normal mood/affect Skin: normal color Lymphatic: no adenopathy Diagnostics Laboratory Results Results Past 24 Hours Test 08/29/16 19:50 08/29/16 20:03 08/29/16 20:07 08/29/16 21:15 Range/Units White Blood Count 15.49 4.8-10.8 K/uL Red Blood Count 4.25 4.7-6.1 M/uL Hemoglobin 13.9 14.0-18.0 g/dL Hematocrit 39.7 42-52 % Mean Corpuscular Volume 93.4 80-100 fL Mean Corpuscular Hemoglobin 32.7 25-34 pg Mean Corpuscular Hemoglobin Concent 35.0 32-36 g/dl Platelet Count 402 130-400 K/uL Mean Platelet Volume 9.2 7.4-10.4 fL Neutrophils (%) (Auto) 71.7 % Lymphocytes (%) (Auto) 21.7 % Monocytes (%) (Auto) 5.8 % Eosinophils (%) (Auto) 0.1 % Basophils (%) (Auto) 0.3 % Neutrophils # (Auto) 11.11 1.4-6.5 K/uL Lymphocytes # (Auto) 3.36 1.2-3.4 K/uL Monocytes # (Auto) 0.90 0.11-0.59 K/uL Eosinophils # (Auto) 0.02 0-0.5 K/uL Basophils # (Auto) 0.04 0-0.2 K/uL RDW Standard Deviation 44.9 36.4-46.3 fL RDW Coefficient of Variation 13.1 11.5-14.5 % Immature Granulocyte % (Auto) 0.4 % Immature Granulocyte # (Auto) 0.06 0.00-0.02 K/uL Sodium Level 137 136-145 mmol/L Potassium Level 4.2 3.5-5.1 mmol/L Chloride Level 103 98-107 mmol/L Carbon Dioxide Level 25 21-32 mmol/L Anion Gap 9.0 17.0 16-25 mmol/L Blood Urea Nitrogen 21 7-18 mg/dl Creatinine 1.30 0.60-1.40 mg/dl Est Creatinine Clear Calc Drug Dose 109.9 ml/min Estimated GFR () 69.2 Estimated GFR (Non- 59.7 BUN/Creatinine Ratio 16.2 10-20 Random Glucose 93 70-99 mg/dl Calcium Level 9.0 8.5-10.1 mg/dl Total Bilirubin 0.6 0.2-1 mg/dl Direct Bilirubin 0.1 0-0.2 mg/dl Aspartate Amino Transf (AST/SGOT) 20 15-37 U/L Alanine Aminotransferase (ALT/SGPT) 30 12-78 U/L Alkaline Phosphatase 61 45-117 U/L Total Creatine Kinase 119 39-308 U/L Creatine Kinase MB 0.9 0.5-3.6 ng/ml Creatine Kinase MB Ratio 0.8 0-3.0 Troponin I < 0.015 0-0.045 ng/ml Total Protein 7.2 6.4-8.2 gm/dl Albumin 3.1 3.4-5.0 gm/dl Thyroid Stimulating Hormone (TSH) 0.402 0.300-4.500 uIu/ml Bedside D-Dimer > 450 0-450 ng/mlFEU Bedside Hemoglobin 13.9 14.0-18.0 g/dl Bedside Hematocrit 41 42-52 % Bedside Sodium 137 135-144 mEq/L Bedside Potassium 4.4 3.3-5.0 mEq/L Bedside Chloride 99 101-112 mEq/L Bedside Total CO2 26 24-31 mEq/l Bedside Blood Urea Nitrogen 23 7-18 mg/dl Bedside Creatinine 1.2 0.6-1.3 mg/dl Bedside Glucose (other) 98 70-99 mg/dl Bedside Ionized Calcium (Colby) 1.12 1.12-1.32 mmol/l Urine Color DK YELLOW Urine Appearance CLOUDY CLEAR Urine pH >= 9.0 4.5-7.5 Urine Specific Weldon 1.025 1.000-1.030 Urine Protein NEG NEG Urine Glucose (UA) NEG NEG Urine Ketones NEG NEG Urine Occult Blood NEG NEG Urine Nitrite NEG NEG Urine Bilirubin NEG NEG Urine Urobilinogen NEG NEG Urine Leukocyte Esterase TRACE NEG Urine WBC (Auto) 1-5 0-5 /hpf Urine RBC (Auto) 5-10 0-4 /hpf Urine Hyaline Casts (Auto) 1-5 0-5 /lpf Urine Epithelial Cells (Auto) 10-20 0-5 /lpf Urine Bacteria (Auto) NEG NEG Microbiology Results 08/29/16 Blood Culture, Received Pending 08/29/16 Blood Culture, Received Pending Diagnostic Radiology CT ANGIOGRAM OF THE CHEST CLINICAL HISTORY: Lower extremity edema. Recent surgery. COMPARISON STUDY: Chest x-ray dated 08/29/2016. TECHNIQUE: Following the IV administration of 94 cc of Optiray 320, CT angiogram of the chest was performed from the upper abdomen to the thoracic inlet utilizing the pulmonary embolus protocol. Images are reviewed in the axial, sagittal, and coronal planes. 3-D MIPS images are created and assessed. IV contrast was administered without complication. CT DOSE: 681.10 mGy.cm FINDINGS: Thyroid: Imaged portions of the thyroid gland are normal in size and attenuation. Thoracic aorta: There is mild atherosclerotic calcification of the thoracic aorta, which is normal in caliber and demonstrates standard 3-vessel arch anatomy. No dissection is seen. Pulmonary vasculature: The pulmonary trunk is normal in caliber. There are no filling defects identified in main, lobar, or segmental pulmonary branches to suggest pulmonary embolus. Heart: The heart is enlarged and without pericardial effusion. Lungs and pleural spaces: The lungs and pleural spaces are clear noting dependent atelectasis. A 3 mm right middle lobe pulmonary nodule is seen on image #141. A 3 mm left upper lobe nodule seen image #153. A 2 mm focus of pleural-based thickening is seen in the left upper lobe lung minor fissure on image #148. The trachea and central airways are patent. Mediastinum: There is no mediastinal lymphadenopathy. Barbara: Clear. Axillae: There is no axillary lymphadenopathy. Upper abdomen: There is a small to moderate hiatal hernia. A normal spleen is not identified. Numerous splenules are present in the left upper quadrant. Skeletal structures: The skeletal structures appear osteopenic. No lytic or blastic bony lesions are seen. Degenerative change is noted throughout the thoracic spine. A large posterior disc osteophyte complex is seen at T5-T6. IMPRESSION: 1. There is no evidence of pulmonary embolus in the main, lobar, or segmental pulmonary arteries. 2. There is no airspace consolidation or pleural effusion. 3. Mild cardiomegaly. 4. There are 2 pulmonary nodules in the right lung measuring up to 3 mm. These are of low suspicion and can be followed if clinically warranted. See below. 5. A normal spleen is not identified and there are numerous splenules in the left upper quadrant. Correlation with the patient's medical/surgical history will be required. ULTRASOUND BILATERAL LOWER EXTREMITY VENOUS CLINICAL HISTORY: Lower extremity edema. COMPARISON STUDY: No priors. TECHNIQUE: Real-time, grayscale, and color Doppler sonography of the deep veins of the right and left lower extremity was performed from the inguinal crease to the calf. Compression and augmentation were utilized. FINDINGS: There is no sonographic evidence of deep venous thrombosis identified in the right or left lower extremity. The common femoral, superficial femoral, and popliteal veins are patent and normally compressible bilaterally. The greater saphenous vein and the profunda femoris vein at the junction with the common femoral vein are clear in both legs. The visualized calf veins are patent bilaterally. IMPRESSION: There is no sonographic evidence of deep venous thrombosis identified in the right or left lower extremity. CT SCAN OF THE BRAIN WITHOUT IV CONTRAST CLINICAL HISTORY: Change in mental status. COMPARISON STUDY: CT of the brain dated 07/24/2015. TECHNIQUE: Unenhanced axial CT scan of the brain is performed from the vertex to the skull base. Automated dose control exposure was utilized. CT DOSE: 634.23 mGy.cm FINDINGS: Brain parenchyma: The brain parenchyma is normal in appearance. There is no hemorrhage, mass effect, or evidence of acute territorial ischemia by CT criteria. Esparza-white matter is preserved. No extra-axial fluid collection is seen. Ventricles, sulci, cisterns: Normal in configuration. Intracranial vasculature: There is atherosclerotic calcification of the cavernous carotid and vertebral arteries. Calvarium: Unremarkable. Sinuses and mastoids: The visualized paranasal sinuses are clear. The mastoid air cells are well pneumatized. Orbits: The bony orbits are grossly intact. IMPRESSION: There is no hemorrhage, mass effect, or evidence of acute territorial ischemia by CT criteria. SINGLE VIEW PELVIS CLINICAL HISTORY: Left hip pain. Recent surgery. FINDINGS: 2 AP pelvic radiographs are compared to study dated 02/08/2015. The skeletal structures are osteopenic. No fracture is seen in the hips or bony pelvis. A left hip arthroplasty is in near-anatomic alignment. 2 cortical lag screws transfix the acetabular cup. Mild arthritic change is seen in the right hip. Mild sclerosis is observed in the sacroiliac joints. Lumbosacral spondylosis is partially imaged. Soft tissue edema overlies the left hip and is likely related to the reported history of recent surgery. Pelvic phleboliths are observed. IMPRESSION: 1. No acute bony abnormality is seen in the pelvis noting a left hip arthroplasty in place. 2. Osteopenia and mild degenerative change as above. 3. Soft tissue swelling is present overlying the left hip, likely related to the reported history of recent surgery. SINGLE VIEW CHEST CLINICAL HISTORY: Fever and chills. FINDINGS: An AP, portable, upright chest radiograph is compared to study dated 08/06/2016. The examination is degraded by portable technique and apical lordotic positioning. The heart is mildly enlarged and there is atherosclerotic calcification of the thoracic aorta. Chronic interstitial thickening is similar to previous. The lungs and pleural spaces are clear. No pneumothorax is seen. The bony thorax is grossly intact. IMPRESSION: Cardiomegaly with no active disease in the chest. 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 of tobacco use with recent hip surgery on August 22, presents with fevers/chills, weakness Fevers/Chills/Weakness in the setting of Asplenia and Recent Hip Surgery WBC elevated on admission leukocytosis possibly related to recent surgery and steroid use CXR negative, UA negative, DVT and PE ruled out site of surgery on L hip - well healing, no significant erythema pelvic X-ray - no acute findings abdominal cramping/vomiting - possible viral gastroenteritis? due to asplenia - starting Zosyn + Vancomycin blood cultures pending continue IVFs Osteoarthritis on chronic prednisone use CKD stage 3 creatinine at baseline avoid nephrotoxic agents when able HTN continue Lisinopril DVT ppx aspirin 81mg BID as per ortho for one month FULL CODE VTE Prophylaxis VTE Risk Assessment Done? Y/N: Yes Risk Level: High
[2016-08-30] MEDS ORDERED: PIPERACILL/TAZOBAC CONSULT ACTIVE PRN (02:30)
[2016-08-30] MEDS ORDERED: VANCOMYCIN CONSULT ACTIVE PRN (02:30)
[2016-08-30] MEDS ORDERED: VANCOMYCIN INJ 2,500 MG in SODIUM CHLORIDE 0.9% 500ML 500 ML IV SCH (02:30)
[2016-08-30] MEDS: PIPERACILL/TAZOBAC IV 4.5 GM in DEXTROSE 5% 100ML 100 ML IV SCH ×3 (06:19→21:59)
[2016-08-30 06:56] VITALS: BP 126/71; PULSE 56; TEMP 36.8; O2SAT 97
[2016-08-30 07:27] LABS: HEMATOCRIT 37.1 % (42-52); MEAN CELL VOLUME 94.6 fL (80-100); MEAN CORPUSCULAR HEMOGLOBIN 32.1 pg (25-34); MEAN PLATELET VOLUME 8.9 fL (7.4-10.4); PLATELET COUNT 378 K/uL (130-400); RED BLOOD COUNT 3.92 M/uL (4.7-6.1); WHITE BLOOD COUNT 9.92 K/uL (4.8-10.8)
[2016-08-30] MEDS ORDERED: DAPTOMYCIN IV SCH (08:00)
[2016-08-30] MEDS ORDERED: SODIUM CHLORIDE 0.9% IV SCH (08:00)
[2016-08-30 08:01] LABS: BUN/CREATININE RATIO 18.9 (10-20); CALCIUM 8.8 mg/dl (8.5-10.1); CREATININE 1.2 mg/dl (0.60-1.40); POTASSIUM 3.7 mmol/L (3.5-5.1)
[2016-08-30] MEDS: ASPIRIN 81 MG ECTAB PO SCH ×2 (08:25→20:25)
[2016-08-30] MEDS: LISINOPRIL 5 MG TAB PO SCH (08:26)
[2016-08-30 08:27] VITALS: PULSE 64
--- NOTE | 2016-08-30 09:00 | Pharmacy Progress Note ---
Pharmacy Abx Initial Consult Date of Service Aug 30, 2016. Pharmacy Dosing Scope Date of Consult: 08/30/16 Consultation requested by: Dr. Hoang Pharmacy is consulted to initiate VANCOMYCIN and ZOSYN IV therapy, order appropriate labs and adjust drug dose/frequency. Subjective The patient is a 61 year old male admitted on Aug 29, 2016 at 23:43 for c/o fever , chills, weakness, fatigue, abdominal cramping and diarrhea/constipation. He does have a h/o asplenia and recently had L DILEEP revision on 08/21/16 Objective Height (Feet): 6 Height (Inches): 3.00 Weight (Kilograms): 127.000 Vital Signs (Past 12Hrs) Vital Signs Past 12 Hours Date Time Temp Pulse Resp B/P (MAP) Pulse Ox O2 Delivery O2 Flow Rate FiO2 08/30/16 08:27 64 08/30/16 06:56 36.8 56 20 126/71 (89) 97 Room Air 08/30/16 02:11 36.9 56 18 129/69 97 Room Air 08/30/16 00:30 59 24 118/74 99 Room Air 08/30/16 00:00 55 17 98 Room Air 08/29/16 23:30 59 21 118/59 97 Room Air 08/29/16 23:00 59 19 114/65 95 Room Air 08/29/16 22:38 59 18 97 08/29/16 22:37 61 20 122/65 93 Room Air 08/29/16 22:37 122/65 08/29/16 22:31 61 08/29/16 22:31 106/56 08/29/16 22:16 129/66 08/29/16 22:13 60 121/58 70 106/58 72 129/66 08/29/16 22:12 93 Room Air 08/29/16 21:12 61 18 116/58 97 Room Air Lab Results (24Hrs) Laboratory Tests (24 Hours) Test 08/29/16 19:50 08/30/16 07:11 White Blood Count 15.49 K/uL (4.8-10.8) H 9.92 K/uL (4.8-10.8) Red Blood Count 4.25 M/uL (4.7-6.1) L Hemoglobin 13.9 g/dL (14.0-18.0) L Hematocrit 39.7 % (42-52) L Mean Corpuscular Volume 93.4 fL (80-100) Mean Corpuscular Hemoglobin 32.7 pg (25-34) Mean Corpuscular Hemoglobin Concent 35.0 g/dl (32-36) Platelet Count 402 K/uL (130-400) H Mean Platelet Volume 9.2 fL (7.4-10.4) Neutrophils (%) (Auto) 71.7 % Lymphocytes (%) (Auto) 21.7 % Monocytes (%) (Auto) 5.8 % Eosinophils (%) (Auto) 0.1 % Basophils (%) (Auto) 0.3 % Neutrophils # (Auto) 11.11 K/uL (1.4-6.5) H Lymphocytes # (Auto) 3.36 K/uL (1.2-3.4) Monocytes # (Auto) 0.90 K/uL (0.11-0.59) H Eosinophils # (Auto) 0.02 K/uL (0-0.5) Basophils # (Auto) 0.04 K/uL (0-0.2) Total Creatine Kinase 119 U/L (39-308) Micro Results Date/Time Source Procedure Growth Status 08/29/16 20:00 Blood Blood Culture Pending Received 08/29/16 19:50 Blood Blood Culture Pending Received Risk Factors for Resistance * Hospitalization for 48 hours or more within the past 90 days * Immunocompromised (chronic steroid therapy, asplenia) * Antimicrobial use within the last 90 days : cefazolin zion-op surgical prophylaxis 08/21-08/22 Assessment & Plan Assessment * 61 year old male admitted with c/o fever, chills, weakness, fatigue, abdominal cramping, diarrhea and constipation * Recently had L DILEEP revision, however provider's latest note states pt's surgical site healing well with no significant erythema. Also X-ray pelvis showed no acute findings. WBC was elevated on admit and neutrophilia was also noted, however pt also takes chronic prednisone. Today WBC is WNL however. Pt had reported fevers and chills [employer] however has been afebrile since admit. Vital signs are also stable. * C/O abdominal cramping and diarrhea could be indicative of a vial gastroenteritis as well per provider's assessment. * He does have a h/o asplenia, thus empiric broad-spectrum ABX initiated by provider on admission. Plan Vancomycin IV * Loading dose: 2500 mg (~20 mg/kg) given in ED at 0306 * Maintenance dose: 1850 mg IV (14.6 mg/kg) every 12 hours * Goal trough level for possible bone/joint infxn : 15 to 20 mcg/mL * Trough level has not yet been ordered as current orders are for only 48 hrs of empiric therapy. If therapy is to continue beyond 48 hrs will check trough level, ideally with the 4th maintenace dose Piperacillin/tazobactam * 4.5 g bolus administered over 30 minutes, then 4.5 g IV extended infusion every 8 hours for CrCl greater than 20 mL/min OR every 12 hours for CrCl 20 mL/ min or less and dialysis. * Aggressive dosing selected due to BMI 35 or more Pharmacy will continue to follow and will adjust dose/frequency as necessary. Thank you.
--- NOTE | 2016-08-30 10:02 | Orthopedic Progress Note ---
Orthopedic Progress Note Date of Service Aug 30, 2016. Subjective Post OP Day: Reports: feeling well Objective calves soft nontender, N/V intact, hip located, dressing C/D/I, incision C/D/I Date Time Temp Pulse Resp B/P (MAP) Pulse Ox O2 Delivery O2 Flow Rate FiO2 08/30/16 08:27 64 08/30/16 06:56 36.8 56 20 126/71 (89) 97 Room Air 08/30/16 02:11 36.9 56 18 129/69 97 Room Air 08/30/16 00:30 59 24 118/74 99 Room Air 08/30/16 00:00 55 17 98 Room Air 08/29/16 23:30 59 21 118/59 97 Room Air 08/29/16 23:00 59 19 114/65 95 Room Air 08/29/16 22:38 59 18 97 08/29/16 22:37 61 20 122/65 93 Room Air 08/29/16 22:37 122/65 08/29/16 22:31 61 08/29/16 22:31 106/56 08/29/16 22:16 129/66 08/29/16 22:13 60 121/58 70 106/58 72 129/66 08/29/16 22:12 93 Room Air 08/29/16 21:12 61 18 116/58 97 Room Air 08/29/16 18:26 36.8 80 24 130/75 100 Room Air Laboratory Results 24 Hours: Test 08/29/16 19:50 08/30/16 07:11 White Blood Count 15.49 K/uL Red Blood Count 4.25 M/uL Hemoglobin 13.9 g/dL 12.6 g/dL Hematocrit 39.7 % 37.1 % Mean Corpuscular Volume 93.4 fL Mean Corpuscular Hemoglobin 32.7 pg Mean Corpuscular Hemoglobin Concent 35.0 g/dl Platelet Count 402 K/uL Mean Platelet Volume 9.2 fL Neutrophils (%) (Auto) 71.7 % Lymphocytes (%) (Auto) 21.7 % Monocytes (%) (Auto) 5.8 % Eosinophils (%) (Auto) 0.1 % Basophils (%) (Auto) 0.3 % Neutrophils # (Auto) 11.11 K/uL Lymphocytes # (Auto) 3.36 K/uL Monocytes # (Auto) 0.90 K/uL Eosinophils # (Auto) 0.02 K/uL Basophils # (Auto) 0.04 K/uL Assessment & Plan Assessment: No orthopedic problems identified Plan: Ambulation as tolerated, otherwise per medicine Inhouse Planning DVT Prophylaxis: ASA
--- NOTE | 2016-08-30 13:00 | Progress Note ---
Internal Med Progress Note Date of Service: Aug 30, 2016. Provider Documentation: SUBJECTIVE: Patient is feeling much better today. Patient denies any hot./cold sweats, subjective fever, chills No abdominal pain, nausea, vomiting, chest pain, SOB, cough, urinary symptoms, diarrhea No c/o worsening of pain at left hip incision site. OBJECTIVE: Vital Signs-as noted below Exam: General-AAOX3, no distress Neck-Supple, No JVD Lungs-AEBE, no wheezing, rhonchi , rales Heart-S1, S2 normal, no murmurs Abdomen-Soft, non tender, non distended, BS present Extremities-S/P Left hip surgery- incision intact - sutures +, no erythema in surrounding skin Neuro-Grossly no deficits Lab data as noted below. 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 GENERALIZED WEAKNESS/SUBJECTIVE FEVER In the setting of Asplenia and Recent Hip Surgery Patient had hip surgery done on 08/21/16 and discharged without any post operative complications. Few days ago developed nausea followed by generalized weakness, hot/cold sweats, subjective fever. No associated findings. On admission found to have leucocytosis 15k. As hx of asplenia, recent surgery was admitted for further evaluation. -Symptoms could be possibly secondary to narcotics (was taking 1-2 tabs q 4 hours as needed). No active infection identified for now. Had a detailed discussion about side effects of narcotics and try to use it only when needed. Understands and agrees with the plan. -Work up- Left hip incision site- no signs of infection, UA- neg, CXR/CT scan- no pneumonia. No PE on CT scan though d dimer positive, Blood cultures x 2 - pending -Will continue with IV Vancomycin/Zosyn empirically till blood cultures come back OSTEOARTHRITIS -On chronic prednisone use ? CKD stage 3 creatinine at baseline avoid nephrotoxic agents when able HTN -Continue Lisinopril DVT ppx - Aspirin 81mg BID as per ortho for one month FULL CODE DISPOSITION Okay to discharge tomorrow if blood culture negative and no signs of infection noted Expected discharge home when stable Vital Signs: Date Time Temp Pulse Resp B/P (MAP) Pulse Ox O2 Delivery O2 Flow Rate FiO2 08/30/16 15:04 36.7 63 18 124/67 (86) 97 08/30/16 08:27 64 08/30/16 08:00 Room Air 08/30/16 06:56 36.8 56 20 126/71 (89) 97 Room Air 08/30/16 02:11 36.9 56 18 129/69 97 Room Air 08/30/16 00:30 59 24 118/74 99 Room Air 08/30/16 00:00 55 17 98 Room Air 08/29/16 23:30 59 21 118/59 97 Room Air 08/29/16 23:00 59 19 114/65 95 Room Air 08/29/16 22:38 59 18 97 08/29/16 22:37 61 20 122/65 93 Room Air 08/29/16 22:37 122/65 08/29/16 22:31 61 08/29/16 22:31 106/56 08/29/16 22:16 129/66 08/29/16 22:13 60 121/58 70 106/58 72 129/66 08/29/16 22:12 93 Room Air 08/29/16 21:12 61 18 116/58 97 Room Air 08/29/16 18:26 36.8 80 24 130/75 100 Room Air Lab Results: Results Past 24 Hours Test 08/29/16 19:50 08/29/16 20:03 08/29/16 20:07 08/29/16 21:15 Range/Units White Blood Count 15.49 4.8-10.8 K/uL Red Blood Count 4.25 4.7-6.1 M/uL Hemoglobin 13.9 14.0-18.0 g/dL Hematocrit 39.7 42-52 % Mean Corpuscular Volume 93.4 80-100 fL Mean Corpuscular Hemoglobin 32.7 25-34 pg Mean Corpuscular Hemoglobin Concent 35.0 32-36 g/dl Platelet Count 402 130-400 K/uL Mean Platelet Volume 9.2 7.4-10.4 fL Neutrophils (%) (Auto) 71.7 % Lymphocytes (%) (Auto) 21.7 % Monocytes (%) (Auto) 5.8 % Eosinophils (%) (Auto) 0.1 % Basophils (%) (Auto) 0.3 % Neutrophils # (Auto) 11.11 1.4-6.5 K/uL Lymphocytes # (Auto) 3.36 1.2-3.4 K/uL Monocytes # (Auto) 0.90 0.11-0.59 K/uL Eosinophils # (Auto) 0.02 0-0.5 K/uL Basophils # (Auto) 0.04 0-0.2 K/uL RDW Standard Deviation 44.9 36.4-46.3 fL RDW Coefficient of Variation 13.1 11.5-14.5 % Immature Granulocyte % (Auto) 0.4 % Immature Granulocyte # (Auto) 0.06 0.00-0.02 K/uL Sodium Level 137 136-145 mmol/L Potassium Level 4.2 3.5-5.1 mmol/L Chloride Level 103 98-107 mmol/L Carbon Dioxide Level 25 21-32 mmol/L Anion Gap 9.0 17.0 16-25 mmol/L Blood Urea Nitrogen 21 7-18 mg/dl Creatinine 1.30 0.60-1.40 mg/dl Est Creatinine Clear Calc Drug Dose 109.9 ml/min Estimated GFR () 69.2 Estimated GFR (Non- 59.7 BUN/Creatinine Ratio 16.2 10-20 Random Glucose 93 70-99 mg/dl Calcium Level 9.0 8.5-10.1 mg/dl Total Bilirubin 0.6 0.2-1 mg/dl Direct Bilirubin 0.1 0-0.2 mg/dl Aspartate Amino Transf (AST/SGOT) 20 15-37 U/L Alanine Aminotransferase (ALT/SGPT) 30 12-78 U/L Alkaline Phosphatase 61 45-117 U/L Total Creatine Kinase 119 39-308 U/L Creatine Kinase MB 0.9 0.5-3.6 ng/ml Creatine Kinase MB Ratio 0.8 0-3.0 Troponin I < 0.015 0-0.045 ng/ml Total Protein 7.2 6.4-8.2 gm/dl Albumin 3.1 3.4-5.0 gm/dl Thyroid Stimulating Hormone (TSH) 0.402 0.300-4.500 uIu/ml Bedside D-Dimer > 450 0-450 ng/mlFEU Bedside Hemoglobin 13.9 14.0-18.0 g/dl Bedside Hematocrit 41 42-52 % Bedside Sodium 137 135-144 mEq/L Bedside Potassium 4.4 3.3-5.0 mEq/L Bedside Chloride 99 101-112 mEq/L Bedside Total CO2 26 24-31 mEq/l Bedside Blood Urea Nitrogen 23 7-18 mg/dl Bedside Creatinine 1.2 0.6-1.3 mg/dl Bedside Glucose (other) 98 70-99 mg/dl Bedside Ionized Calcium ([place]) 1.12 1.12-1.32 mmol/l Urine Color DK YELLOW Urine Appearance CLOUDY CLEAR Urine pH >= 9.0 4.5-7.5 Urine Specific [place] 1.025 1.000-1.030 Urine Protein NEG NEG Urine Glucose (UA) NEG NEG Urine Ketones NEG NEG Urine Occult Blood NEG NEG Urine Nitrite NEG NEG Urine Bilirubin NEG NEG Urine Urobilinogen NEG NEG Urine Leukocyte Esterase TRACE NEG Urine WBC (Auto) 1-5 0-5 /hpf Urine RBC (Auto) 5-10 0-4 /hpf Urine Hyaline Casts (Auto) 1-5 0-5 /lpf Urine Epithelial Cells (Auto) 10-20 0-5 /lpf Urine Bacteria (Auto) NEG NEG Test 08/30/16 07:11 Range/Units White Blood Count 9.92 4.8-10.8 K/uL Red Blood Count 3.92 4.7-6.1 M/uL Hemoglobin 12.6 14.0-18.0 g/dL Hematocrit 37.1 42-52 % Mean Corpuscular Volume 94.6 80-100 fL Mean Corpuscular Hemoglobin 32.1 25-34 pg Mean Corpuscular Hemoglobin Concent 34.0 32-36 g/dl RDW Standard Deviation 45.8 36.4-46.3 fL RDW Coefficient of Variation 13.3 11.5-14.5 % Platelet Count 378 130-400 K/uL Mean Platelet Volume 8.9 7.4-10.4 fL Sodium Level 142 136-145 mmol/L Potassium Level 3.7 3.5-5.1 mmol/L Chloride Level 108 98-107 mmol/L Carbon Dioxide Level 25 21-32 mmol/L Anion Gap 9.0 3-11 mmol/L Blood Urea Nitrogen 23 7-18 mg/dl Creatinine 1.20 0.60-1.40 mg/dl Est Creatinine Clear Calc Drug Dose 95.2 ml/min Estimated GFR () 76.3 Estimated GFR (Non- 65.8 BUN/Creatinine Ratio 18.9 10-20 Random Glucose 84 70-99 mg/dl Calcium Level 8.8 8.5-10.1 mg/dl Microbiology Results 08/29/16 Blood Culture, Received Pending 08/29/16 Blood Culture, Received Pending
[2016-08-30] MEDS: VANCOMYCIN INJ 1,850 MG in SODIUM CHLORIDE 0.9% 500ML 500 ML IV SCH (13:19)
[2016-08-30 15:04] VITALS: BP 124/67; PULSE 63; TEMP 36.7; O2SAT 97
[2016-08-30] MEDS ORDERED: TRAZODONE HCL 50 MG TAB PO SCH (21:00)
[2016-08-30] MEDS ORDERED: SIMVASTATIN 40 MG TAB PO SCH (21:00)
[2016-08-30] MEDS ORDERED: PANTOprazole SOD 40 MG TAB PO SCH (21:00)
[2016-08-30 23:12] VITALS: BP 110/68; PULSE 68; TEMP 36.7; O2SAT 97
[2016-08-31] MEDS: VANCOMYCIN INJ 1,850 MG in SODIUM CHLORIDE 0.9% 500ML 500 ML IV SCH (01:55)
[2016-08-31] MEDS: OXYCODONE HCL IR 5 MG TAB (IMMEDIATE RELEASE) PO PRN (02:06)
[2016-08-31] MEDS: PIPERACILL/TAZOBAC IV 4.5 GM in DEXTROSE 5% 100ML 100 ML IV SCH (06:23)
[2016-08-31 07:26] LABS: CREATININE 1.2 mg/dl (0.60-1.40)
[2016-08-31 07:37] VITALS: BP 115/66; PULSE 58; TEMP 36.5; O2SAT 97
[2016-08-31] MEDS: LISINOPRIL 5 MG TAB PO SCH (07:52)
[2016-08-31] MEDS: ASPIRIN 81 MG ECTAB PO SCH (07:52)
--- NOTE | 2016-08-31 10:37 | Progress Note ---
Internal Med Progress Note Date of Service: Aug 31, 2016. Provider Documentation: SUBJECTIVE: Patient is feeling well and eager to be discharged. Patient denies any hot/cold sweats, subjective fever, chills No abdominal pain, nausea, vomiting, chest pain, SOB, cough, urinary symptoms, diarrhea No c/o worsening of pain at left hip incision site. OBJECTIVE: Vital Signs-as noted below Exam: General-AAOX3, no distress Neck-Supple, No JVD Lungs-AEBE, no wheezing, rhonchi , rales Heart-S1, S2 normal, no murmurs Abdomen-Soft, non tender, non distended, BS present Extremities-S/P Left hip surgery- incision intact - sutures +, no erythema in surrounding skin Neuro-Grossly no deficits Lab data as noted below. 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 GENERALIZED WEAKNESS/SUBJECTIVE FEVER : Resolved In the setting of Asplenia and Recent Hip Surgery Patient had hip surgery done on 08/21/16 and discharged without any post operative complications. Few days ago developed nausea followed by generalized weakness, hot/cold sweats, subjective fever. No associated findings. On admission found to have leucocytosis 15k. As hx of asplenia, recent surgery was admitted for further evaluation. -Symptoms could be possibly secondary to narcotics (was taking 1-2 tabs q 4 hours as needed). No active infection identified. Had a detailed discussion about side effects of narcotics and try to use it only when needed. Understands and agrees with the plan. -IV Vancomycin/Zosyn - x day 2- discontinue as no source of infection identified and cultures came back negative. -Work up- Left hip incision site- no signs of infection, UA- neg, CXR/CT scan- no pneumonia. No PE on CT scan though d dimer positive, Blood cultures x 2 - negative. OSTEOARTHRITIS -On chronic prednisone use ? CKD stage 3 -Creatinine at baseline -Avoid nephrotoxic agents when able HTN -Continue Lisinopril DVT ppx - Aspirin 81mg BID as per ortho for one month FULL CODE DISPOSITION Okay to discharge home today. Vital Signs: Date Time Temp Pulse Resp B/P (MAP) Pulse Ox O2 Delivery O2 Flow Rate FiO2 08/31/16 08:00 Room Air 08/31/16 07:37 36.5 58 18 115/66 (82) 97 08/30/16 23:59 Room Air 08/30/16 23:12 36.7 68 20 110/68 (82) 97 Room Air 08/30/16 16:00 Room Air 08/30/16 15:04 36.7 63 18 124/67 (86) 97 Lab Results: Results Past 24 Hours Test 08/31/16 06:40 Range/Units Creatinine 1.20 0.60-1.40 mg/dl Est Creatinine Clear Calc Drug Dose 95.2 ml/min Estimated GFR () 76.3 Estimated GFR (Non- 65.8
[2016-08-31] MEDS ORDERED: OXYC1CAP5 PO (10:38)
--- NOTE | 2016-08-31 10:42 | Discharge Summary ---
Discharge Summary Date of Service Aug 31, 2016. Discharge Summary Admission Date: Aug 29, 2016 at 23:43 Discharge Date: Aug 31, 2016 Discharge Disposition: Home Principal Diagnosis: 1. Subjective fever/Generalized weakness, ruled out acute infection 2. Hx of Recent Left hip surgery 3. Hx of splenectomy Secondary Diagnoses/Problems: 1. CKD III 2. Osteoarthritis 3. HTN Procedures: CXR Pelvis X ray CT head CT Chest Venous duplex IV Vanco/zosyn x 1 day Cultures-negative Pending Studies/Follow-Up: Instructions / Follow-Up Instructions / Follow-Up No changes in medications FOLLOW UP 1. Follow up Dr Singh on 09/08/16 at 11:05 AM Medication Reconciliation Changed Medications: Oxycodone Hcl (Oxycodone Hcl) 5 Mg Cap 1 CAP PO Q8H PRN for RN, #30 CAP (Changed from: 1-2 CAP; Q4H; 60) Continued Medications: Acetaminophen (Sb Non-Aspirin Extra Stre) 500 Mg Tab 1000 MG PO Q8H for 30 Days, #180 TAB Aspirin (Aspirin 81) 81 Mg Tab 81 MG PO BID for 30 Days AFTER 30 DAYS, STOP TAKING TABLET TWICE DAILY AND RESUME YOUR ONCE DAILY DOSING Atenolol (Tenormin) 25 Mg Tab 12.5 MG PO QAM, TAB Cholecalciferol (Vitamin D3) 1,000 Inter.unit Tab 5000 UNITS PO QAM Lisinopril (Prinivil) 5 Mg Tab 5 MG PO QAM, TAB Omeprazole (Prilosec) 20 Mg Cap 20 MG PO QPM, CAP Prednisone (Prednisone) 5 Mg Tab 5 MG PO QAM, TAB Senna (Senna Lax) 8.6 Mg Tab 17.2 MG PO HS, #30 TAB HOLD FOR LOOSE STOOLS Simvastatin (Zocor) 40 Mg Tab 40 MG PO QPM, TAB Tramadol (Ultram) 50 Mg Tab 50 MG PO Q4H PRN for Pain, TAB Trazodone Hcl (Desyrel) 50 Mg Tab 50 MG PO HS, TAB Admission Information HPI (per Admitting provider): This is a 61 year old male with a PMH of 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 of tobacco use with recent hip surgery on August 22, presents with fevers/chills, weakness - states that he's just not feeling well in the past few days. He was here last week for a hip surgery; states his L hip has dislocated multiple times and he had this surgically repaired. He was feeling well at home until August 29. States he's also felt constipated after taking Percocet - then started developing diarrhea and cramping prior to arrival. Denies chest pain, denies shortness of breath/palpitations. Physical Exam (per Admitting): General Appearance: no apparent distress Head: normocephalic, atraumatic Eyes: normal inspection ENT: hearing grossly normal Respiratory/Chest: chest non-tender, lungs clear, normal breath sounds, no respiratory distress, no accessory muscle use Cardiovascular: regular rate, rhythm, no edema, no murmur Abdomen/GI: non tender, soft, + abnormal bowel sounds (hyperactive bowel sounds) Extremities/Musculoskelatal: no calf tenderness, normal capillary refill, no pedal edema Neurologic/Psych: no motor/sensory deficits, alert, normal mood/affect Skin: normal color Lymphatic: no adenopathy Hospital Course This is a 61 year old male with a PMH of 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 GENERALIZED WEAKNESS/SUBJECTIVE FEVER : Resolved In the setting of Asplenia and Recent Hip Surgery Patient had hip surgery done on 08/21/16 and discharged without any post operative complications. Few days ago developed nausea followed by generalized weakness, hot/cold sweats, subjective fever. No associated findings. On admission found to have leucocytosis 15k. As hx of asplenia, recent surgery was admitted for further evaluation. -Symptoms could be possibly secondary to narcotics (was taking 1-2 tabs q 4 hours as needed). No active infection identified. Had a detailed discussion about side effects of narcotics and try to use it only when needed. Understands and agrees with the plan. -IV Vancomycin/Zosyn - x day 2- discontinue as no source of infection identified and cultures came back negative. -Work up- Left hip incision site- no signs of infection, UA- neg, CXR/CT scan- no pneumonia. No PE on CT scan though d dimer positive, Blood cultures x 2 - negative. OSTEOARTHRITIS -On chronic prednisone use ? CKD stage 3 -Creatinine at baseline -Avoid nephrotoxic agents when able HTN -Continue Lisinopril DVT ppx - Aspirin 81mg BID as per ortho for one month FULL CODE DISPOSITION Okay to discharge home today. Total time spent on discharge = 32 minutes This includes examination of the patient, discharge planning, medication reconciliation, and communication with other providers. Discharge Instructions Discharge Goals Goal(s): Decrease discomfort, Improve function, Therapeutic intervention Activity Recommendations Activity Limitations: resume your previous activity (as tolerated as prior to admission) . Instructions / Follow-Up Instructions / Follow-Up No changes in medications FOLLOW UP 1. Follow up Dr Singh on 09/08/16 at 11:05 AM Current Hospital Diet Patient's current hospital diet: Regular Diet Discharge Diet Recommended Diet: Regular Diet Pending Studies Studies pending at discharge: no Laboratory Results Hemoglobin A1c Test 08/06/16 11:44 Range/Units Estimated Average Glucose 114 mg/dl Hemoglobin A1c 5.6 4.5-5.6 % Medical Emergencies . Who to Call and When: Medical Emergencies: If at any time you feel your situation is an emergency, please call 911 immediately. . Non-Emergent Contact Non-Emergency issues call your: Primary Care Provider . . "Provider Documentation" section prepared by Shanna Coe. . VTE Core Measure Inpt VTE Proph given/why not?: Other Anticoagulation (ASA BID)
[2016-08-31 11:28] VITALS: BP 115/66; PULSE 58; TEMP 36.5; O2SAT 97
== END 2016-08-31 11:50 | disposition home or self-care (01) | DRG 864 ==
LOC: C.EDB 18:24 → C.MS4W 23:43 → ENRESERV 08-30 00:13
PROVIDERS: ADMIT Family Medicine; ATTEND Internal Medicine
DX: R50.9 Fever, unspecified (principal); R53.1 Weakness; N18.3 Chronic kidney disease, stage 3 (moderate); I12.9 Hypertensive chronic kidney disease with stage 1 through stage 4 chronic kidney disease, or unspecified chronic kidney disease; D72.829 Elevated white blood cell count, unspecified; T38.0X5A Adverse effect of glucocorticoids and synthetic analogues, initial encounter; T40.605A Adverse effect of unspecified narcotics, initial encounter; M19.90 Unspecified osteoarthritis, unspecified site; E78.5 Hyperlipidemia, unspecified; Z96.642 Presence of left artificial hip joint; Z96.659 Presence of unspecified artificial knee joint; Z90.81 Acquired absence of spleen; Z87.891 Personal history of nicotine dependence; Z79.82 Long term (current) use of aspirin; Z79.899 Other long term (current) drug therapy; Z79.891 Long term (current) use of opiate analgesic

== ENCOUNTER 2016-10-07 20:53 | Emergency (ER) | payer BC ==
[~2016-10-07] VITALS: Ht 190.5 cm; Wt 123.2 kg
[2016-10-07 20:59] VITALS: TEMP 36.7; Ht 190.5 cm; Wt 123.2 kg
--- NOTE | 2016-10-07 22:12 | DIAGNOSTIC IMAGING REPORT ---
RIGHT VENOUS DOPPLER UPR EXT UNI HISTORY: Pain. Edema. SWELLING/PAIN FOREARM Right COMPARISON STUDY: None. FINDINGS: Superficial thrombus within the right cephalic vein from the mid forearm to the distal arm. No evidence for deep venous thrombosis. IMPRESSION: No DVT within the upper extremity. Superficial thrombophlebitis of the right cephalic vein from mid forearm to the distal arm. The above report was generated using voice recognition software. It may contain grammatical, syntax or spelling errors. Electronically signed by: Spencer Ulrich M.D. 10/07/2016 10:11 PM Dictated Date/Time: 10/07/2016 10:10 PM
--- NOTE | 2016-10-07 22:24 | EMERGENCY ROOM VISIT NOTE ---
History Report prepared by Natasha: Rohit Nova Under the Supervision of: Dr. Nick Hensley D.O. First contact with patient: 21:08 Chief Complaint: SWELLING TO EXTREMITY Stated Complaint: BLOOD CLOT R ARM History of Present Illness The patient is a 61 year old male who presents to the Emergency Room with complaints of worsening right arm swelling for the past four days. The patient states that it is also warm and it hurts in different places. The patient states that he has a history of blood clots. He states that he feels that there is a lump in that area. Source of History: patient Onset: four days ago Position: arm (right) Quality: other (swelling) Timing: worsening Note: Associated symptoms: redness Review of Systems See HPI for pertinent positives & negatives. A total of 10 systems reviewed and were otherwise negative. Past Medical & Surgical Medical Problems: (1) Arthritis of left hip (2) Asplenia (3) Fever and chills (4) Left DILEEP Instability (5) Weakness Surgical Problems: (1) H/O rotator cuff surgery (2) S/P hip replacement (3) S/P knee replacement Family History Gallbladder disease Heart disease Hypertension Kidney disease Kidney stones Social History Smoking Status: Former Smoker Alcohol Use: none Marital Status: single Housing Status: lives with family Occupation Status: employed Current/Historical Medications Scheduled Acetaminophen (Sb Non-Aspirin Extra Stre), 1,000 MG PO Q8H Aspirin (Aspirin 81), 81 MG PO BID Atenolol (Tenormin), 12.5 MG PO QAM Cholecalciferol (Vitamin D3), 5,000 UNITS PO QAM Lisinopril (Prinivil), 5 MG PO QAM Omeprazole (Prilosec), 20 MG PO QPM Prednisone (Prednisone), 5 MG PO QAM Senna (Senna Lax), 17.2 MG PO HS Simvastatin (Zocor), 40 MG PO QPM Trazodone Hcl (Desyrel), 50 MG PO HS Scheduled PRN Oxycodone Hcl (Oxycodone Hcl), 1 CAP PO Q8H PRN for RN Tramadol (Ultram), 50 MG PO Q4H PRN for Pain Allergies Coded Allergies: No Known Allergies (Unverified , 10/07/16) Physical Exam Vital Signs Date Time Temp Pulse Resp B/P (MAP) Pulse Ox O2 Delivery O2 Flow Rate FiO2 10/07/16 21:59 65 18 126/72 96 Room Air 10/07/16 20:59 36.7 71 20 140/94 96 Room Air Physical Exam CONSTITUTIONAL/VITAL SIGNS: Reviewed / noted above. GENERAL: Non-toxic in appearance. INTEGUMENTARY: Warm, dry, and [place]. HEAD: Normocephalic. EYES: without scleral icterus or trauma. ENT/OROPHARYNX: clear and moist. LYMPHADENOPATHY/NECK: Is supple without lymphadenopathy or meningismus. RESPIRATORY: Lungs clear and equal. CARDIOVASCULAR: Regular rate and rhythm. GI/ABDOMEN: Soft and nontender. No organomegaly or pulsatile mass. No rebound or guarding. Normal bowel sounds. EXTREMITIES: Mild erythema and tenderness to the right forearm just distal to the elbow. Small red area just lateral to that suggesting superficial abrasion. Warm and well perfused. BACK: No CVA tenderness. NEUROLOGICAL: Intact without focal deficits. PSYCHIATRIC: normal affect. MUSCULOSKELETAL: Normally developed with good muscle tone. Medical Decision & Procedures ER Provider Diagnostic Interpretation: Radiology results as stated below per my review and radiologist interpretation: RIGHT VENOUS DOPPLER UPR EXT UNI HISTORY: Pain. Edema. SWELLING/PAIN FOREARM Right COMPARISON STUDY: None. FINDINGS: Superficial thrombus within the right cephalic vein from the mid forearm to the distal arm. No evidence for deep venous thrombosis. IMPRESSION: No DVT within the upper extremity. Superficial thrombophlebitis of the right cephalic vein from mid forearm to the distal arm. The above report was generated using voice recognition software. It may contain grammatical, syntax or spelling errors. Electronically signed by: Spencer Ulrich M.D. 10/07/2016 10:11 PM Dictated Date/Time: 10/07/2016 10:10 PM ED Course 2108: Previous medical records were reviewed. The patient was evaluated in room B9. A complete history and physical examination was performed. Medical Decision Differential diagnosis: Etiologies such as DVT, musculoskeletal, infection, joint effusion, trauma, lymphedema, idiopathic, CHF, as well as others were entertained.. This is a 61-year-old male who presents to the ED with a chief complaint of some redness and inflammation to the right forearm. He was seen at urgent care and sent here for further evaluation. The patient states that he noticed the symptoms over the past 4 days. He denies any specific trauma or related injury. His vital signs are normal. His physical exam reveals some redness in the right forearm with some mild tenderness. The patient's ultrasound reveals a superficial thrombophlebitis of the right cephalic vein from the right mid forearm to the distal arm. The patient was told the results. He was given conservative measures for treatment. He was told to follow-up with his PCP in 1 week for recheck. Medication Reconcilliation Current Medication List: was personally reviewed by me Blood Pressure Screening Patient's blood pressure: Normal blood pressure Impression Primary Impression: Superficial thrombophlebitis Scribe Attestation The scribe's documentation has been prepared under my direction and personally reviewed by me in its entirety. I confirm that the note above accurately reflects all work, treatment, procedures, and medical decision making performed by me. Departure Information Dispostion Home / Self-Care Referrals Hong Zheng M.D. (PCP) Forms HOME CARE DOCUMENTATION FORM, IMPORTANT VISIT INFORMATION, WORK / SCHOOL INSTRUCTIONS Patient Instructions ED Phlebitis Superficial, My [facility] Additional Instructions Take ibuprofen 600 mg every 6 hours for pain and redness. Use warm compresses to the area for about 15 minutes 3-6 times a day. Elevate the arm when not used. Follow-up with your doctor in 1 week for recheck. Return for significant worsening, swelling or redness.
[2016-10-07 22:35] VITALS: BP 109/60; PULSE 83; O2SAT 96
== END 2016-10-07 22:37 | disposition home or self-care (01) ==
LOC: C.EDB 20:54
DX: I80.8 Phlebitis and thrombophlebitis of other sites (principal); M16.12 Unilateral primary osteoarthritis, left hip; Q89.01 Asplenia (congenital); Z86.718 Personal history of other venous thrombosis and embolism; Z96.642 Presence of left artificial hip joint; Z96.659 Presence of unspecified artificial knee joint; Z79.82 Long term (current) use of aspirin; Z87.891 Personal history of nicotine dependence; Z82.49 Family history of ischemic heart disease and other diseases of the circulatory system; Z84.1 Family history of disorders of kidney and ureter

== ENCOUNTER 2021-03-04 16:30 | Observation (INO) ==
--- NOTE | 2021-03-04 18:05 | XRay Report ---
XR chest 1V portable CLINICAL HISTORY: SOB. COMPARISON STUDY: No previous studies for comparison. TECHNIQUE: 10/14/2020 FINDINGS: Single frontal view of the chest demonstrates the cardiomediastinal silhouette to be within normal li mits. The lungs are clear of alveolar opacities. There is no evidence for pleural effusion. There is no evidence for vascular congestion. There is no acute osseous pathology. IMPRESSION: No acute cardiopulmonary disease. ACT 112: Negative or not required by law. Electronically signed by: Jose Luis Plunkett M.D. 03/04/2021 6:04 PM
[2021-03-04 19:46] LABS: Basophils # (auto) 0.04 K/uL (0-0.2); Basophils % (auto) 0.3 %; Eosinophils # (auto) 0.09 K/uL (0-0.5); Eosinophils % (auto) 0.8 %; Hematocrit (blood only) 44.7 % (42-52); Hemoglobin 15.4 g/dL (14.0-18.0); Immature Granulocytes # (auto) 0.02 K/uL (0.00-0.02); Immature Granulocytes % (auto) 0.2 %; Lymphocytes # (auto) 4.38 K/uL (1.2-3.4); Lymphocytes % (auto) 37.3 %; Mean Corpuscular Hemoglobin 34.6 pg (25-34); Mean Corpuscular Hgb Conc 34.5 g/dL (32-36); Mean Corpuscular Volume 100.4 fL (80-100); Mean Platelet Volume 10.8 fL (7.4-10.4); Monocytes % (auto) 6.8 %; Neutrophils # (auto) 6.42 K/uL (1.4-6.5); Neutrophils % (auto) 54.6 %; Platelet Count 276 K/uL (130-400); RDW Coefficient of Variation 13.9 % (11.5-14.5); RDW Standard Deviation 50.9 fL (36.4-46.3); Red Blood Count 4.45 M/uL (4.7-6.1); White Blood Count 11.75 K/uL (4.8-10.8)
[2021-03-04 20:00] LABS: D Dimer 290 ug/L FEU (0-500); Partial Thromboplastin Ratio 0.9; Partial Thromboplastin Time 23.9 Seconds (21.0-31.0); Prothrombin Time 9.8 Seconds (9.0-12.0)
[2021-03-04 20:05] LABS: Alanine Aminotransferase 30 (12-78); Aspartate Aminotransferase 20 U/L (15-37); BUN Creatinine Ratio 17.3 (10-20); Blood Urea Nitrogen 21 mg/dl (7-18); Calcium 9.4 mg/dl (8.5-10.1); Carbon Dioxide 28 mmol/L (21-32); Chloride 107 mmol/L (98-107); Est GFR (African American) 74.1 ml/min; Glucose 92 mg/dl (70-99); Magnesium 2.2 mg/dl (1.8-2.4); Potassium 3.8 mmol/L (3.5-5.1); Sodium 140 mmol/L (136-145)
[2021-03-04 20:10] LABS: Albumin Globulin Ratio 1.1 (0.9-2); Alkaline Phosphatase 84 U/L (45-117); Bilirubin,Total 0.3 mg/dl (0.2-1); Globulin 3.6 gm/dl (2.5-4.0); Total Protein 7.6 gm/dl (6.4-8.2); Troponin I < 0.015 ng/ml (0-0.045)
--- NOTE | 2021-03-04 21:10 | Emergency Department Note ---
History of Present Illness General Chief complaint: Respiratory Problems Stated complaint: POSSIBLE BLOOD CLOT IN LUNG, HEADACHE, DIZZY Time Seen by Provider: 03/04/21 20:42 Source: patient Mode of arrival: ambulatory Limitations: no limitations History of Present Illness Maximum Pain Intensity: 3 This patient is a 65-year-old male who comes in with several complaints. He said that he was helping move something today and he felt like like he was dizzy and short of breath he did not feel well he felt like he might pass out. This happened around 2:30 in the afternoon when he was carrying a heavy chair. He is also felt dizzy and lightheaded for the last 6 months with standing mostly in the evenings when short of breath for about 3 months. He had a cough today. He has some pain under his right ribs for the last two nights. He has had headaches for several weeks or so. He gets right eye pain occasionally. No focal numbness or weakness. He did see his doctor recently and they ordered a carotid ultrasound which was negative. Home Medications Medication Instructions Recorded Confirmed Type allopurinol 300 mg tablet 300 mg PO QAM 12/27/17 03/04/21 History aspirin 81 mg tablet,delayed 81 mg PO QAM 12/27/17 03/04/21 History release (Aspirin Low Dose) atenolol 25 mg tablet (Tenormin) 12.5 mg PO QAM 12/27/17 03/04/21 History cholecalciferol (vitamin D3) 125 5,000 unit PO QAM 12/27/17 03/04/21 History mcg (5,000 unit) tablet (Vitamin D3) duloxetine 30 mg capsule,delayed 30 mg PO QAM 12/27/17 03/04/21 History release (Cymbalta) hydroxychloroquine 200 mg tablet 400 mg PO HS 12/27/17 03/04/21 History (Plaquenil) lisinopril 5 mg tablet (Zestril) 5 mg PO QAM 12/27/17 03/04/21 History omeprazole 20 mg capsule,delayed 20 mg PO QAM 12/27/17 03/04/21 History release prednisone 5 mg tablet 5 mg PO QAM 12/27/17 03/04/21 History simvastatin 40 mg tablet (Zocor) 40 mg PO HS 12/27/17 03/04/21 History tramadol 50 mg tablet (Ultram) 100 mg PO BID PRN 12/27/17 03/04/21 History duloxetine 60 mg capsule,delayed 60 mg PO QAM 10/14/20 03/04/21 History release (Cymbalta) multivitamin 1 tab PO DAILY 03/04/21 03/04/21 History Allergies Allergy/AdvReac Type Severity Reaction Status Date / Time No Known Allergies Allergy Unverified 03/04/21 22:06 Past Med/Surg History Medical History Arthritis of left hip Surgical History H/O rotator cuff surgery S/P hip replacement S/P knee replacement Social History Smoking Status: Former smoker Tobacco Type: Cigarettes Feels Safe at Home: Yes Immunizations: Past medical historycholecystectomy 3 to 4 years ago. Splenectomy at age 5 no problems since then. No recent fever. We will keep her here he has had knee and hip surgery. He has no known history of cardiac disease with exception of some palpitations. No recent stress test he had a cath 15 to 20 years ago in [place]. 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 no current blood thinners Family historyfather had a CABG Review of Systems A total of 10 systems reviewed and were otherwise negative Physical Exam Vital Signs Vital Signs - 24 hr 03/04/21 17:37 03/04/21 21:12 Temperature 36.9 C Temperature Source Oral Pulse Rate 82 70 Pulse Rate [Finger] 69 Pulse Rhythm Regular Regular Pulse Strength Normal Respiratory Rate 20 Respiratory Effort / Characteristics Non-Labored Spontaneous Non-Labored Spontaneous Respiratory Depth Normal Respiratory Pattern Regular Blood Pressure 149/103 H Blood Pressure Mean 118 Pulse Oximetry 96 97 Oxygen Delivery Method Room Air Room Air Oxygen Flow Rate 0 Sepsis Recent Fever Within 48 Hours No Sepsis New/Unexplained Change in Mental Status N/A Sepsis Action Taken by Nursing No Action Required General: Well developed well nourished middle-age male who appears in no acute distress, breathing comfortably on room air. Normal speech HEENT: Normal cephalic atraumatic. Pupils are equal round and reactive to light . Extraocular movements are intact. Oropharynx is pink with moist mucous membranes. No swelling of the mouth lips or tongue. Neck: Supple with a midline trachea. No meningeal signs or stiffness, no JVD or bruits. No Stridor. Chest: Clear to auscultation bilaterally. No wheezes or rhonchi. No increased work of breathing. Heart: Regular rate and rhythm without murmurs or gallops. Abdomen: Soft nontender, nondistended without rebound guarding or rigidity. Extremities: No cyanosis clubbing or edema. No calf tenderness or assymetry Spine/Back. Non tender to palpation. No CVA tenderness Skin: Good turgor without rashes. Neurologic exam: Cranial nerves two through 12 are intact. Motor and sensation are intact and symmetrical throughout. I did Course Administered Medications Discontinued Medications Al Hydrox/Mg Hydrox/Simethicone (Gi Cocktail Ed Use) 1 dose PO ONE ONE Stop: 03/04/21 21:29 Last Admin: 03/04/21 22:00 Dose: 1 dose Documented by: [id number] Ioversol (Optiray 320 125ml) 120 ml IV ONCE ONE Stop: 03/04/21 22:22 Last Admin: 03/04/21 22:27 Dose: 120 ml Documented by: [id number] Medical Decision Making Differential Diagnosis Acute coronary syndrome, PE, electrolyte or metabolic abnormality, pneumothorax, COVID, GERD, neurologic disease, aneurysm Medical Records Attestation: I reviewed the patient's medical records. Home Medications Current Medication List: was personally reviewed by me Laboratory Data Attestation: I reviewed the patient's lab results. Result diagrams: 03/04/21 19:35 03/04/21 19:35 Lab Results 03/04/21 03/04/21 03/04/21 Range/Units 19:35 19:35 19:35 WBC 11.75 H (4.8-10.8) K/uL RBC 4.45 L (4.7-6.1) M/uL Hgb 15.4 (14.0-18.0) g/dL Hct 44.7 (42-52) % MCV 100.4 H (80-100) fL MCH 34.6 H (25-34) pg MCHC 34.5 (32-36) g/dL RDW Std Deviation 50.9 H (36.4-46.3) fL RDW Coeff of Kj 13.9 (11.5-14.5) % Plt Count 276 (130-400) K/uL MPV 10.8 H (7.4-10.4) fL Immature Gran % (Auto) 0.2 % Neut % (Auto) 54.6 % Lymph % (Auto) 37.3 % [place] % (Auto) 6.8 % Eos % (Auto) 0.8 % Baso % (Auto) 0.3 % Neut # (Auto) 6.42 (1.4-6.5) K/uL Lymph # (Auto) 4.38 H (1.2-3.4) K/uL [place] # (Auto) 0.80 H (0.11-0.59) K/uL Eos # (Auto) 0.09 (0-0.5) K/uL Baso # (Auto) 0.04 (0-0.2) K/uL Immature Gran # (Auto) 0.02 (0.00-0.02) K/uL PT 9.8 (9.0-12.0) Seconds INR 1.0 (0.9-1.1) APTT 23.9 (21.0-31.0) Seconds PTT Ratio 0.9 D-Dimer 290 (0-500) ug/L FEU Sodium 140 (136-145) mmol/L Potassium 3.8 (3.5-5.1) mmol/L Chloride 107 (98-107) mmol/L Carbon Dioxide 28 (21-32) mmol/L Anion Gap 5.0 (3-11) BUN 21 H (7-18) mg/dl Creatinine 1.20 (0.6-1.4) mg/dl Est Cr Clr Drug Dosing 92.0 ml/min Est GFR ( Amer) 74.1 ml/min Est GFR (Non-Af Amer) 64.0 ml/min BUN/Creatinine Ratio 17.3 (10-20) Glucose 92 (70-99) mg/dl Calcium 9.4 (8.5-10.1) mg/dl Magnesium 2.2 (1.8-2.4) mg/dl Total Bilirubin 0.3 (0.2-1) mg/dl AST 20 (15-37) U/L ALT 30 (12-78) Alkaline Phosphatase 84 (45-117) U/L Troponin I < 0.015 (0-0.045) ng/ml Total Protein 7.6 (6.4-8.2) gm/dl Albumin 4.0 (3.4-5.0) gm/dl Globulin 3.6 (2.5-4.0) gm/dl Albumin/Globulin Ratio 1.1 (0.9-2) SARS-CoV-2 (PCR) (Negative) Influenza Type A (PCR) (Neg) Influenza Type B (PCR) (Neg) RSV (RT-PCR) (Neg) 03/04/21 Range/Units Unknown WBC (4.8-10.8) K/uL RBC (4.7-6.1) M/uL Hgb (14.0-18.0) g/dL Hct (42-52) % MCV (80-100) fL MCH (25-34) pg MCHC (32-36) g/dL RDW Std Deviation (36.4-46.3) fL RDW Coeff of Kj (11.5-14.5) % Plt Count (130-400) K/uL MPV (7.4-10.4) fL Immature Gran % (Auto) % Neut % (Auto) % Lymph % (Auto) % [place] % (Auto) % Eos % (Auto) % Baso % (Auto) % Neut # (Auto) (1.4-6.5) K/uL Lymph # (Auto) (1.2-3.4) K/uL [place] # (Auto) (0.11-0.59) K/uL Eos # (Auto) (0-0.5) K/uL Baso # (Auto) (0-0.2) K/uL Immature Gran # (Auto) (0.00-0.02) K/uL PT (9.0-12.0) Seconds INR (0.9-1.1) APTT (21.0-31.0) Seconds PTT Ratio D-Dimer (0-500) ug/L FEU Sodium (136-145) mmol/L Potassium (3.5-5.1) mmol/L Chloride (98-107) mmol/L Carbon Dioxide (21-32) mmol/L Anion Gap (3-11) BUN (7-18) mg/dl Creatinine (0.6-1.4) mg/dl Est Cr Clr Drug Dosing ml/min Est GFR ( Amer) ml/min Est GFR (Non-Af Amer) ml/min BUN/Creatinine Ratio (10-20) Glucose (70-99) mg/dl Calcium (8.5-10.1) mg/dl Magnesium (1.8-2.4) mg/dl Total Bilirubin (0.2-1) mg/dl AST (15-37) U/L ALT (12-78) Alkaline Phosphatase (45-117) U/L Troponin I (0-0.045) ng/ml Total Protein (6.4-8.2) gm/dl Albumin (3.4-5.0) gm/dl Globulin (2.5-4.0) gm/dl Albumin/Globulin Ratio (0.9-2) SARS-CoV-2 (PCR) NEGATIVE (Negative) Influenza Type A (PCR) Negative (Neg) Influenza Type B (PCR) Negative (Neg) RSV (RT-PCR) Negative (Neg) Imaging Data Attestation: I personally reviewed and interpreted this imaging study as follows: My Impression: Chest x-rayno acute infiltrate, failure, pneumothorax seen. Radiologist's Impression: Chest X-Ray 03/04/21 17:41 XR chest 1V portable CLINICAL HISTORY: SOB. COMPARISON STUDY: No previous studies for comparison. TECHNIQUE: 10/14/2020 FINDINGS: Single frontal view of the chest demonstrates the cardiomediastinal silhouette to be within normal limits. The lungs are clear of alveolar opacities. There is no evidence for pleural effusion. There is no evidence for vascular congestion. There is no acute osseous pathology. IMPRESSION: No acute cardiopulmonary disease. ACT 112: Negative or not required by law. Electronically signed by: Jose Luis Plunkett M.D. 03/04/2021 6:04 PM Chest CTA 03/04/21 21:00 CT angio chest PE protocol CLINICAL HISTORY: Chest pain. Evaluate for pulmonary embolus COMPARISON STUDY: Portable chest from 03/04/2021 CT DOSE: TECHNIQUE: CT Angio of the chest was performed.followed by image post processing with coronal, and sagittal MIP reformats. Contrast Volume: Optiray 320, 120 ml FINDINGS: Vasculature: There is homogeneous perfusion of the pulmonary vasculature bilaterally. No intraluminal filling defects or evidence for pulmonary embolus is seen. Airway: The airway is clear. No endobronchial lesion is identified. Lungs: There is minimal dependent atelectasis at the right lung base. The lungs are clear of acute alveolar opacities, air bronchograms or pulmonary nodules. Pleura: There is no evidence for pleural effusion. There is no evidence for pneumothorax. Mediastinum: There is no evidence for pathologic adenopathy. The heart size is within normal limits. The thoracic aorta is within normal limits. There is no evidence for pericardial effusion. Upper abdomen:The adrenal glands are normal bilaterally. There is a small hiatal hernia with mucosal thickening. Osseous structures: There is no acute osseous pathology. Impression: 1. No CTA evidence for pulmonary embolus. 2. No acute chest disease. 3. Minimal dependent atelectasis at the right lung base. 3. Small hiatal with mucosal thickening. ACT 112: Negative or not required by law. Electronically signed by: Jose Luis Plunkett M.D. 03/04/2021 10:[address] 03/04/21 21:00 CT head/brain wo con CLINICAL HISTORY: headache COMPARISON STUDY: 08/29/2017 CT DOSE: 2390.74 mGy.cm TECHNIQUE: Standard CT of the Brain was performed without IV contrast. A dose lowering technique was utilized adhering to the principles of ALARA. FINDINGS: Extraaxial space: There is no evidence for subdural hematoma. There are no extra-axial fluid collections. Ventricles and cisterns: The ventricles are normal in size and configuration. There is no evidence for midline shift or mass effect. Parenchyma: There is no subarachnoid or intraparenchymal hemorrhage. There is n o evidence for an acute infarct or cerebral edema. There is homogeneous attenuation of the brain parenchyma. There are no gross mass lesions. Osseous structures: There is no evidence for an acute fracture. The visualized paranasal sinuses are clear. The mastoid air cells are clear bilaterally. Soft tissues: There is no evidence for focal soft tissue swelling. IMPRESSION: No acute intracerebral pathology. ACT 112: Negative or not required by law. Electronically signed by: Jose Luis Plunkett M.D. 03/04/2021 10:39 PM ECG Data Attestation: I personally reviewed and interpreted this ECG as follows: Indication: + chest pain Rate (beats per minute): 65 Rhythm: + normal sinus ECG Intervals/blocks: + First degree AV block, + Normal QRS, + Normal QT and + Normal TN ECG Wittmann: + Normal ECG Findings: no PACs or no PVCs Comparison ECG Date: from (10/14/20) Change: no significant change Additional Comments: EKG #2: Sinus bradycardia at 60 first-degree AV block PACs. Compared to EKG #1 no significant change. MDM Narrative This patient is a 65-year-old male who comes with multiple complaints. He was doing some exertion today and became short of breath and dizzy. He has also had some headaches going on chronically. There is a strong family history of cardiac disease. he also has history of blood clots. IV access was established and he was placed on a loader engineer in room A9. Also I did COVID test although I do not think is likely COVID. EKG does not suggest acute coronary syndrome or arrhythmia. Chest x-ray was unremarkable and does not show congestive heart failure pneumonia or pneumothorax. His troponin is negative. His D-dimer is also negative but given his history, that that documented while I Feel did opt to do a CTA of the chest and also the head and neck. He was reassessed frequently. He was given a GI cocktail as he said he still had some reflux over the last couple days. The nurses were concerned that his heart rate dropped at times I did look at the monitor he does have occasional brief pauses but seems asymptomatic with this. I repeated an EKG and there is no significant change. His COVID and influenza testing was negative. CTA of the chest was negative. CAT scan of the head is also unremarkable. I did consult Dr. Cordero to see the patient in the ER for cardiac evaluation and further treatment Continuous cardiac monitoring: Orders placed in EMR for continuous loader engineer. Upon my interpretation the patient was noted to be in normal sinus rhythm with a rate of 65. Impression & Plan Chest pain, Asplenia, Dizziness, Bradycardia, Lab test negative for COVID-19 virus Discharge Plan Visit Data Chief Complaint: Respiratory Problems Stated Complaint: POSSIBLE BLOOD CLOT IN LUNG, HEADACHE, DIZZY ED Provider: Adalberto Harper Discharge Problem: Chest pain, Asplenia, Dizziness, Bradycardia, Lab test negative for COVID-19 virus Forms Stand Alone Forms: My [facility] [employer] Prescriptions Prescriptions: No Action prednisone 5 mg tablet 5 mg PO QAM RF: 0 atenolol [Tenormin] 25 mg tablet 12.5 mg PO QAM RF: 0 aspirin [Aspirin Low Dose] 81 mg Tablet,Delayed Release (Dr/Ec) 81 mg PO QAM RF: 0 tramadol [Ultram] 50 mg tablet 100 mg PO BID PRN (Reason: Pain) RF: 0 simvastatin [Zocor] 40 mg tablet 40 mg PO HS RF: 0 omeprazole 20 mg capsule,delayed release(DR/EC) 20 mg PO QAM RF: 0 allopurinol 300 mg tablet 300 mg PO QAM RF: 0 lisinopril [Zestril] 5 mg tablet 5 mg PO QAM RF: 0 hydroxychloroquine [Plaquenil] 200 mg tablet 400 mg PO HS RF: 0 duloxetine [Cymbalta] 30 mg capsule,delayed release(DR/EC) 30 mg PO QAM RF: 0 cholecalciferol (vitamin D3) [Vitamin D3] 5,000 unit Tablet 5,000 unit PO QAM RF: 0 duloxetine [Cymbalta] 60 mg capsule,delayed release(DR/EC) 60 mg PO QAM RF: 0 multivitamin [Multiple Vitamin] Tablet 1 tab PO DAILY RF: 0 Referrals Referrals: Hong Zheng MD [Primary Care Provider] - Discharge Problem: Chest pain Qualifiers: Chest pain type: unspecified Qualified Code(s): R07.9 - Chest pain, unspecified
[2021-03-04] MEDS ORDERED: GI COCKTAIL ED USE PO ONE (21:28)
[2021-03-04 22:01] LABS: Influenza A virus by PCR Negative (Neg); Influenza B virus by PCR Negative (Neg); RSV by PCR Negative (Neg); SARS CoV2 RNA(COVID-19) InHosp NEGATIVE (Negative)
[2021-03-04] MEDS ORDERED: OPTIRAY 320 125ml IV ONE (22:21)
--- NOTE | 2021-03-04 22:41 | CT Scan Report ---
CT head/brain wo con CLINICAL HISTORY: headache COMPARISON STUDY: 08/29/2017 CT DOSE: 2390.74 mGy.cm TECHNIQUE: Standard CT of the Brain was performed without IV contrast. A dose lowering technique was utilized adhering to the principles of ALARA. FINDINGS: Extraaxial space: There is no evidence for subdural hematoma. There are no extra-axial fluid collecti ons. Ventricles and cisterns: The ventricles are normal in size and configuration. There is no evidence f or midline shift or mass effect. Parenchyma: There is no subarachnoid or intraparenchymal hemorrhage. There is no evidence for an acu te infarct or cerebral edema. There is homogeneous attenuation of the brain parenchyma. There are no gross mass lesions. Osseous structures: There is no evidence for an acute fracture. The visualized paranasal sinuses are clear. The mastoid air cells are clear bilaterally. Soft tissues: There is no evidence for focal soft tissue swelling. IMPRESSION: No acute intracerebral pathology. ACT 112: Negative or not required by law. Electronically signed by: Jose Luis Plunkett M.D. 03/04/2021 10:39 PM
--- NOTE | 2021-03-04 22:45 | CT Scan Report ---
CT angio chest PE protocol CLINICAL HISTORY: Chest pain. Evaluate for pulmonary embolus COMPARISON STUDY: Portable chest from 03/04/2021 CT DOSE: TECHNIQUE: CT Angio of the chest was performed.followed by image post processing with coronal, and s agittal MIP reformats. Contrast Volume: Optiray 320, 120 ml FINDINGS: Vasculature: There is homogeneous perfusion of the pulmonary vasculature bilaterally. No intraluminal filling defects or evidence for pulmonary embolus is seen. Airway: The airway is clear. No endobronchial lesion is identified. Lungs: There is minimal dependent atelectasis at the right lung base. The lungs are clear of acute al veolar opacities, air bronchograms or pulmonary nodules. Pleura: There is no evidence for pleural effusion. There is no evidence for pneumothorax. Mediastinum: There is no evidence for pathologic adenopathy. The heart size is within normal limits. The thoracic aorta is within normal limits. There is no evidence for pericardial effusion. Upper abdomen:The adrenal glands are normal bilaterally. There is a small hiatal hernia with mucosal thickening. Osseous structures: There is no acute osseous pathology. Impression: 1. No CTA evidence for pulmonary embolus. 2. No acute chest disease. 3. Minimal dependent atelectasis at the right lung base. 3. Small hiatal with mucosal thickening. ACT 112: Negative or not required by law. Electronically signed by: Jose Luis Plunkett M.D. 03/04/2021 10:43 PM
--- NOTE | 2021-03-04 22:48 | CT Scan Report ---
CT angio head w con CLINICAL HISTORY: headache COMPARISON STUDY: CT brain without contrast from 03/04/2021 CT DOSE: TECHNIQUE: CT Angio of the brain was performed.followed by image post processing with coronal, and s agittal MIP reformats. Contrast Volume: Optiray 320, 120 ml FINDINGS: Vascular findings: There is normal enhancement within the internal carotid arteries bilaterally. The re is normal enhancement noted within the anterior, middle and posterior cerebral arteries. Nonvascular findings: There is homogeneous attenuation of the brain parenchyma bilaterally. There is no evidence for an acute infarct or cerebral edema. IMPRESSION: Negative CT angiogram of the brain with contrast. ACT 112: Negative or not required by law. Electronically signed by: Jose Luis Plunkett M.D. 03/04/2021 10:47 PM
--- NOTE | 2021-03-04 22:53 | CT Scan Report ---
CT angio neck with con CLINICAL HISTORY: headache ,chest pain COMPARISON STUDY: No previous studies for comparison. CT DOSE: TECHNIQUE: CT Angio of the neck was performed.followed by image post processing with coronal, and sa gittal MIP reformats.. Stenosis assessment by NASCET criteria. Contrast Volume: Optiray 320, 120 ml FINDINGS: Vascular findings: Right common carotid artery: Patent without significant stenosis. There are minimal atherosclerotic p laque is present. Right internal carotid artery: Patent without significant stenosis. Right vertebral artery: Patent without significant stenosis. Left common carotid artery: Patent without significant stenosis. Left internal carotid artery: Patent without significant stenosis.There is minimal atherosclerotic pl aque is present. Left vertebral artery: Patent without significant stenosis. Nonvascular findings: The parotid and submandibular salivary glands appear normal. There is no enlarged cervical adenopathy noted. The airway appears patent. The thyroid gland appears within normal limits. The lung apices ap pear within normal limits. Impression: Essentially negative CT angiogram of the neck with contrast. ACT 112: Negative or not required by law. Electronically signed by: Jose Luis Plunkett M.D. 03/04/2021 10:52 PM
[2021-03-05] MEDS ORDERED: traMADol HCL 50 MG TABLET PO STA (00:48)
[2021-03-05] MEDS ORDERED: HYDROXYCHLOROQUINE SULFATE 200 MG TAB PO STA (00:48)
[2021-03-05] MEDS ORDERED: TAMSULOSIN HCL 0.4 MG CAP PO ONE (00:48)
[2021-03-05] MEDS ORDERED: SIMVASTATIN 40 MG TAB PO STA (00:49)
[2021-03-05] MEDS ORDERED: NITROGLYCERIN SL 0.4 MG/TAB TAB SL PRN (02:28)
--- NOTE | 2021-03-05 04:38 | History and Physical Report ---
DATE OF ADMISSION: 03/05/2021. CHIEF COMPLAINT: Shortness of breath on exertion. HISTORY OF PRESENT ILLNESS: This is a 65-year-old male with past medical history significant for metabolic syndrome, hyperlipidemia, idiopathic chronic gout on multiple sites, deviated nasal septum, hypertension, gastritis, chronic kidney disease stage II, inflammatory polyarthritis, cervical spondylosis, osteoarthritis, history of tobacco abuse, adjustment disorder with depression, family history of cardiovascular disease, persistent insomnia attributes this to his chronic back pain, on long-term current use of systemic steroids. Lives with his girlfriend. Comes because of shortness of breath with exertion. The patient says he is getting short of breath with exertion ever since last 2 months and also feeling dizzy in the evenings when he just lays down because of dizziness. Couple of times every week, he is getting headaches. He also has some funny feeling in his right eye, but that resolved. Today he was getting chair to his attic when after that he felt very short of breath and he has to go outside to take deep breath, but it did not help him. He felt almost passing out, which prompted him to come to the ER today and he is also complaining of chest pain in his right lower rib and also epigastric abdominal pain and lower abdominal pain with 6/10 in severity. Because of his constitutional symptoms multiple imaging studies were done in the ER, which were unremarkable. CTA of the head and neck and CTA of the chest were done which were unremarkable. COVID is negative. Flu is negative. Currently, resting comfortably and hemodynamically stable. Denies any blurred visions, no runny nose, no sore throat, no cough, no fevers, no nausea, no vomiting, alternating diarrhea and constipation, no blood in stools or black stools. He states his urine stream is very weak. He takes long time to pee, no swelling in the legs. ALLERGIES: No known drug allergies. PAST MEDICAL HISTORY: As mentioned above. 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 MEDICATIONS: The patient is on allopurinol 10 mg p.o. daily, aspirin 81 mg p.o. daily, Tenormin 12.5 mg p.o. a.m., vitamin D 5000 units p.o. a.m., Cymbalta 90 mg p.o. a.m., Plaquenil 400 mg p.o. at bedtime, lisinopril 5 mg p.o. a.m., multivitamins 1 tablet p.o. daily, omeprazole 20 mg p.o. a.m., prednisone 5 mg p.o. a.m., Zocor 40 mg p.o. at bedtime, Ultram 100 mg p.o. b.i.d. p.r.n. FAMILY HISTORY: Significant for mother has blood disorder, hypertension; father had CABG. SOCIAL HISTORY: Former smoker, quit in 1991, smoked 0.2 packs a day for 5 years. Alcohol, rarely. No drug use. REVIEW OF SYSTEMS: As per HPI. Rest of the review of systems is negative. PHYSICAL EXAMINATION: GENERAL: The patient is obese, not in acute distress. VITAL SIGNS: Temperature 36.9, pulse 64, respiratory rate 20, blood pressure 128/61, oxygen 96% on room air. HEENT: Pupils equal, round and reactive to light. Oral mucosa moist. NECK: No JVD, no neck masses. CARDIOVASCULAR: S1 and S2 heard. Regular rate and rhythm. No murmur, no gallop. RESPIRATORY SYSTEM: Normal AP diameter. No accessory muscle use. No wheezing, no crackles. ABDOMEN: Soft, bowel sounds are present. Epigastric tenderness present. No tenderness below the umbilicus region. No guarding, no rigidity. No distention. CENTRAL NERVOUS SYSTEM: Cranial nerves II through XII are grossly intact, nonfocal. EXTREMITIES: No edema, no erythema. LABORATORY DATA: WBC 11.7, hemoglobin 15.4, hematocrit 44.7, platelets 276. PT 9.8, INR 1, APTT 23.9. Sodium 140, potassium 3.8, chloride 107, bicarbonate 28, BUN 21, creatinine 1.2, serum glucose 92, calcium 9.4, magnesium 2.2, total bilirubin 0.3, AST 20, ALT 30, alkaline phosphatase 84. Troponin I less than 0.015. SARS-CoV-2 PCR negative. Influenza A and B PCR negative. RSV PCR negative. Neck CTA negative findings. CTA of the head negative findings. CTA of the head without contrast, no acute intracranial pathology. Chest CTA, no PE, no acute chest disease. Minimal dependent atelectasis, right lung base. Chest x-ray, no acute cardiopulmonary disease. EKG: Sinus rhythm with first-degree AV block with PACs at a rate of 65, no acute ST changes seen. ASSESSMENT AND PLAN: This is a 65-year-old male who presents with dyspnea on exertion on ongoing dizziness and feeling weak. 1. Dyspnea on exertion going on for some time and today it was worse. Initial workup was negative. CTA of the chest is negative, we will follow the repeat EKG, troponins, echo. Keep him n.p.o. and consult Cardiology in the a.m. for further recommendation. He had a cardiac catheterization in 2009. Seems to be okay. The patient also has some chest discomfort in right lower ribs. 2. Obesity: Needs counseling. May need sleep study as outpatient, could be contributing to his symptoms. 3. Inflammatory polyarthritis: Continue his prednisone and Plaquenil. 4. Hyperlipidemia: Continue statin. 5. Gastroesophageal reflux disease: Continue omeprazole. 6. Hypertension: Continue his lisinopril. We will monitor the blood pressure.On lisinopril and atenolol. . 7. Depression: Continue duloxetine. 8. Chronic pain: Continue his tramadol. 9. Possible BPH. Started on Flomax. Needs followup with PCP/Urology. 10. 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 11. Deep venous thrombosis prophylaxis: Sequential compression devices for now. DISPOSITION: Closely monitor in the [facility] tele. PT/OT prior to discharge. Social service to help with discharge planning. Job ID: [id number] [facility]
[2021-03-05 05:55] LABS: Hemoglobin 14.5 g/dL (14.0-18.0); Mean Corpuscular Hemoglobin 34.6 pg (25-34); Mean Corpuscular Hgb Conc 34.5 g/dL (32-36); Mean Corpuscular Volume 100.2 fL (80-100); Mean Platelet Volume 10.7 fL (7.4-10.4); Platelet Count 257 K/uL (130-400); RDW Standard Deviation 51.3 fL (36.4-46.3); Red Blood Count 4.19 M/uL (4.7-6.1); White Blood Count 9.24 K/uL (4.8-10.8)
[2021-03-05 06:42] LABS: BUN Creatinine Ratio 18.2 (10-20); Blood Urea Nitrogen 20 mg/dl (7-18); Calcium 9.4 mg/dl (8.5-10.1); Carbon Dioxide 29 mmol/L (21-32); Chloride 107 mmol/L (98-107); Creatinine Clr Calc Pharmacy 99.5 ml/min; Est GFR (African American) 81.5 ml/min; Est GFR (Non-African American) 70.3 ml/min; Glucose 92 mg/dl (70-99); Magnesium 2.4 mg/dl (1.8-2.4); Potassium 4.2 mmol/L (3.5-5.1); Sodium 139 mmol/L (136-145)
[2021-03-05 06:47] LABS: Chol HDL Ratio 3; Cholesterol 120 mg/dl (0-200); HDL Cholesterol 42 mg/dl; LDL Cholesterol Calculated 55 mg/dl; Triglycerides 114 mg/dl (0-150); Troponin I < 0.015 ng/ml (0-0.045); VLDL Cholesterol 23 mg/dl
[2021-03-05 07:10] LABS: Basophils # (auto) 0.05 K/uL (0-0.2); Basophils % (auto) 0.5 %; Eosinophils # (auto) 0.12 K/uL (0-0.5); Eosinophils % (auto) 1.3 %; Immature Granulocytes # (auto) 0.01 K/uL (0.00-0.02); Immature Granulocytes % (auto) 0.1 %; Lymphocytes # (auto) 3.95 K/uL (1.2-3.4); Lymphocytes % (auto) 42.7 %; Monocytes # (auto) 0.87 K/uL (0.11-0.59); Monocytes % (auto) 9.4 %; Neutrophils # (auto) 4.24 K/uL (1.4-6.5)
[2021-03-05 07:25] LABS: Estimated Average Glucose 117 mg/dl; Hemoglobin A1C 5.7 % (4.5-5.6)
--- NOTE | 2021-03-05 08:49 | Electrocardiogram Report ---
Test Reason : Blood Pressure : / mmHG Vent. Rate : 065 BPM Atrial Rate : 065 BPM P-R Int : 230 ms QRS Dur : 108 ms QT Int : 414 ms P-R-T Axes : 045 -29 027 degrees QTc Int : 430 ms Poor data quality, interpretation may be adversely affected Sinus rhythm with 1st degree A-V block with Premature atrial complexes Otherwise normal ECG When compared with ECG of 14-OCT-2020 10:44, Premature atrial complexes are now Present Incomplete right bundle branch block is no longer Present Confirmed by Elfego Richardson ([id number]) on 03/05/2021 8:49:12 AM Referred By: REFERRED SELF Confirmed By:Elfego Richardson
--- NOTE | 2021-03-05 08:58 | Electrocardiogram Report ---
Test Reason : Blood Pressure : / mmHG Vent. Rate : 059 BPM Atrial Rate : 059 BPM P-R Int : 238 ms QRS Dur : 112 ms QT Int : 446 ms P-R-T Axes : 060 -23 022 degrees QTc Int : 441 ms Sinus bradycardia with 1st degree A-V block with Premature atrial complexes and blocked PAC with paus e Abnormal ECG Otherwise normal ECG When compared with ECG of 04-MAR-2021 19:22, Blocked PAC with pause now present Confirmed by Elfego Richardson ([id number]) on 03/05/2021 8:58:16 AM Referred By: REFERRED SELF Confirmed By:Elfego Richardson
[2021-03-05] MEDS ORDERED: FAMOTIDINE 20 MG in SYRINGE 3 ML IV SCH (09:00)
[2021-03-05] MEDS ORDERED: ATENOLOL 25 MG TABLET PO SCH (09:00)
--- NOTE | 2021-03-05 09:03 | Electrocardiogram Report ---
Test Reason : Blood Pressure : / mmHG Vent. Rate : 066 BPM Atrial Rate : 066 BPM P-R Int : 216 ms QRS Dur : 112 ms QT Int : 442 ms P-R-T Axes : 045 -12 068 degrees QTc Int : 463 ms Poor data quality, interpretation may be adversely affected Sinus rhythm with 1st degree A-V block with occasional Premature ventricular complexes Otherwise normal ECG When compared with ECG of 04-MAR-2021 22:05, Premature ventricular complexes are now Present Premature atrial complexes are no longer Present Confirmed by Elfego Richardson ([id number]) on 03/05/2021 9:02:48 AM Referred By: REFERRED SELF Confirmed By:Elfego Richardson
--- NOTE | 2021-03-05 09:53 | Cardiology Consultation ---
Date of Consultation March 05, 2021 Assessment & Plan (1) Chest pain: Atypical right sided chest discomfort, reproducible with palpation. General measures advised. Further evaluation/treatment as per hospitalist. (2) JIN (dyspnea on exertion): Acute on chronic exertional dyspnea. Patient with known nonobstructive coronary artery disease by remote catheterization, with multiple risk factors for progression. EKG's without acute changes. Troponin negative. Resting echocardiography pending formal interpretation. Recommend Lexiscan nuclear stress testing noting inability to ambulate adequately for exercise stress testing. (3) Dizziness: History suggest orthostasis. Bradycardia is a possibility. Recommend increased free water intake. Recommend switching atenolol to metoprolol succinate at 12.5 mg once per day. Continue telemetry. If telemetry remains benign, recommend a 14-day ZIO monitor post discharge. Note: TSH okay. Lyme screen requested. (4) Bradycardia: See above. Additionally, recommend evaluation for sleep apnea. (5) Myalgia: Check CPK, lyme screen. Switch simvastatin 40 mg/day to rosuvastatin 20 mg/day Supervising Physician Attestation: I have personally performed a history and physical examination on the patient. I agree with the physician agency sales management assistant's findings and plan as documented with the following additions. Subjective: Patient with multiple vague complaints, including recent episode of acute dyspnea near syncope type episodes. Telemetry reveals sinus rhythm with incomplete right bundle branch block, occasional PACs and blocked PACs. Exam: No significant murmur Data: Echocardiogram, grossly normal LV wall motion, technically limited exam due to poor acoustic windows Assessment and Plan: Problem list as noted. Monitor on telemetry, likely outpatient Zio monitor. Low intensity exercise, nuclear stress 01/04/22. Facundo Hahn DO History of Present Illness Reason for Consultation: Dyspnea on exertion, chest pain Requesting Physician: Consuelo Attending Physician: Yao History of Present Illness Mr. Renny Porras is a 65 year old male who presented to the [facility] ER with a main complaint of exertional dyspnea acute on chronic dyspnea. He describes yesterday as being scary. Notes working with a friend, down at his fathers home putting in a stair lift. He notes that it was quite warm. Notes becoming considerably dyspnea when doing minimal activity then panicking. Notes feeling like he did when he had a PE shortly after right knee replacement. Note multiple other concerns including right anterolateral right pain, without injury/trauma, reproducible with palpation, starting out as a "hot spot" but with discomfort involving the entire rib. Notes headaches 3-4 times per week that are aided by acetaminophen. Notes dizziness almost exclusively in the evening, especially when he exits his recliner and walks 5-6 steps to the kitchen. Notes having to lean against the wall and put his head down with improvement. Notes IBS type complaints, diarrhea fluctuating with occasional constipation, not smell to his urine, nocturia x3. Notes not sleeping well primarily due to arthritic complaints, tossing and turning throughout the night. Notes sweating terribly, chronically. Notes shaky spell a few days ago while working in a warm closet. No overt exertional chest pain. No tachypalpitations. No resting or nocturnal dyspnea. On questioning, he notes mild lower extremity peripheral edema, nothing to see where the socks were at the end of the day, without orthopnea or PND. No true syncope. No overt fevers or rigors. No soaking/drenching night sweats. No melena or hematochezia. No hematuria. Past Medical and Surgical History: Nonobstructive CAD by remote catheterization Diastolic dysfunction Hypertension Hyperlipidemia History of tobacco abuse Pulmonary nodules Metabolic syndrome Chronic kidney disease Reflux esophagitis Unspecified polyarthropathy or polyarthritis, multiple sites History of DVT and PE following right knee replacement Depression Osteoarthritis. Spinal stenosis Status post multiple lumbar/sacral spine injections Cervical spondylosis Benign neoplasm of colon Diverticulosis GERD Chronic gastritis without bleeding Lyme disease 2016 Rotator cuff rupture - right 2012, left 2013 Right knee scope Right knee replacement Left hip replacement. Carpal tunnel syndrome status post bilateral surgery Status post splenectomy secondary to ITP Cholecystectomy Tonsillectomy Family History. Father is Alberto Porras, with CAD and significant pulmonary disease. Mother is alive at 85 without cardiac issues. 1 brother is alive and well without cardiac issues. 1 brother with an VT. 1 brother was killed in a motor vehicle accident. Social History: Reformed smoker having quit 20 to 25 years ago. He continues to chew tobacco, snuff, approximately 1 can per week. Alcohol: Typically on the weekends, 5-6 beers. No illegal drug use. Employment: Retired construction executive/army helicopter pilot. Lives with significant other. Son killed approximately 12 years ago in a motor vehicle accident. No other children. Complete Review of Systems: Constitutional: No abrupt/unplanned change in weight. HEENT: See above. No amaurosis fugax. Pulmonary: History of PE. History of tobacco use. No history of asthma or COPD. Cardiac: See above. GI/Abd: See above. Denies liver or kidney problems. Hematologic: No coagulation disorder, anemia, or abnormal bleeding. Musculoskeletal: Diffuse pain, arthritis, spinal stenosis, status post left hip replacement, status post right hip replacement. See above. Skin: No rash. No tick bites. Neurologic: No history of TIA, CVA, or seizure. Male : See above. Endocrine: Metabolic syndrome. No thyroid issues. Complete Review of Systems is as stated above, negative, or noncontributory. Allergies Allergy/AdvReac Type Severity Reaction Status Date / Time No Known Allergies Allergy Unverified 03/04/21 22:06 Home Medications Medication Instructions Recorded Confirmed Type allopurinol 300 mg tablet 300 mg PO QAM 12/27/17 03/04/21 History aspirin 81 mg tablet,delayed 81 mg PO QAM 12/27/17 03/04/21 History release (Aspirin Low Dose) atenolol 25 mg tablet (Tenormin) 12.5 mg PO QAM 12/27/17 03/04/21 History cholecalciferol (vitamin D3) 125 5,000 unit PO QAM 12/27/17 03/04/21 History mcg (5,000 unit) tablet (Vitamin D3) duloxetine 30 mg capsule,delayed 30 mg PO QAM 12/27/17 03/04/21 History release (Cymbalta) hydroxychloroquine 200 mg tablet 400 mg PO HS 12/27/17 03/04/21 History (Plaquenil) lisinopril 5 mg tablet (Zestril) 5 mg PO QAM 12/27/17 03/04/21 History omeprazole 20 mg capsule,delayed 20 mg PO QAM 12/27/17 03/04/21 History release prednisone 5 mg tablet 5 mg PO QAM 12/27/17 03/04/21 History simvastatin 40 mg tablet (Zocor) 40 mg PO HS 12/27/17 03/04/21 History tramadol 50 mg tablet (Ultram) 100 mg PO BID PRN 12/27/17 03/04/21 History duloxetine 60 mg capsule,delayed 60 mg PO QAM 10/14/20 03/04/21 History release (Cymbalta) multivitamin 1 tab PO DAILY 03/04/21 03/04/21 History Patient History Medical History Arthritis of left hip Surgical History H/O rotator cuff surgery S/P hip replacement S/P knee replacement Social History Smoking Status: Former smoker Tobacco Type: Cigarettes Hx Alcohol Use: Yes Hx Substance Use: No Preferred Language: Danish Promotions Producer Required: No Beliefs That Will Affect Care: None Current Living Situation: Spouse Other Information That Helps Us Care for You: No Feels Safe at Home: Yes Safety Concerns: Feels Safe At This Time Physical Exam Physical Exam: General: A&Ox3. NAD. HENT: Normocephalic. Atraumatic. Eyes: PER. Conjunctiva pink, sclera clear. Neck: No carotid bruits. No JVD. No HJR. Heart: RRR. No murmur. No rub. No gallop. PMI is nondisplaced. Lungs: Decreased. Diminished. Clear to auscultation. No wheezing. No Rales. Abdomen: +BS. Soft. Nontender. No masses or organomegaly. Extremities: No clubbing, cyanosis, or edema. Limited neurological examination is without focal deficits. Pulses: radial=2/4, posterior tibial=2/4. Results & Data ([facility]) Vital Signs (Past 12 Hours) Vital Signs Temp Pulse Pulse Resp BP Pulse Ox 03/05/21 05:36 37.0 C 72 18 135/82 95 03/05/21 02:31 66 139/84 91 03/05/21 02:29 65 92 03/05/21 01:01 58 L 137/84 95 03/04/21 23:01 64 128/61 96 Laboratory Results Laboratory Results - last 24 hr 03/04/21 03/04/21 03/04/21 19:35 19:35 19:35 WBC 11.75 H RBC 4.45 L Hgb 15.4 Hct 44.7 MCV 100.4 H MCH 34.6 H MCHC 34.5 RDW Std Deviation 50.9 H RDW Coeff of Kj 13.9 Plt Count 276 MPV 10.8 H Immature Gran % (Auto) 0.2 Neut % (Auto) 54.6 Lymph % (Auto) 37.3 Carbon % (Auto) 6.8 Eos % (Auto) 0.8 Baso % (Auto) 0.3 Neut # (Auto) 6.42 Lymph # (Auto) 4.38 H Carbon # (Auto) 0.80 H Eos # (Auto) 0.09 Baso # (Auto) 0.04 Immature Gran # (Auto) 0.02 PT 9.8 INR 1.0 APTT 23.9 PTT Ratio 0.9 D-Dimer 290 Sodium 140 Potassium 3.8 Chloride 107 Carbon Dioxide 28 Anion Gap 5.0 BUN 21 H Creatinine 1.20 Est Cr Clr Drug Dosing 92.0 Est GFR ( Amer) 74.1 Est GFR (Non-Af Amer) 64.0 BUN/Creatinine Ratio 17.3 Glucose 92 Estimat Average Glucose Hemoglobin A1c Calcium 9.4 Magnesium 2.2 Total Bilirubin 0.3 AST 20 ALT 30 Alkaline Phosphatase 84 Troponin I < 0.015 Total Protein 7.6 Albumin 4.0 Globulin 3.6 Albumin/Globulin Ratio 1.1 Triglycerides Cholesterol LDL Cholesterol, Calc VLDL Cholesterol, Calc HDL Cholesterol Cholesterol/HDL Ratio SARS-CoV-2 (PCR) Influenza Type A (PCR) Influenza Type B (PCR) RSV (RT-PCR) 03/04/21 03/05/21 03/05/21 Unknown 05:23 05:23 WBC 9.24 RBC 4.19 L Hgb 14.5 Hct 42.0 MCV 100.2 H MCH 34.6 H MCHC 34.5 RDW Std Deviation 51.3 H RDW Coeff of Kj 14.0 Plt Count 257 MPV 10.7 H Immature Gran % (Auto) 0.1 Neut % (Auto) 46.0 Lymph % (Auto) 42.7 Carbon % (Auto) 9.4 Eos % (Auto) 1.3 Baso % (Auto) 0.5 Neut # (Auto) 4.24 Lymph # (Auto) 3.95 H Carbon # (Auto) 0.87 H Eos # (Auto) 0.12 Baso # (Auto) 0.05 Immature Gran # (Auto) 0.01 PT INR APTT PTT Ratio D-Dimer Sodium 139 Potassium 4.2 Chloride 107 Carbon Dioxide 29 Anion Gap 3.0 BUN 20 H Creatinine 1.11 Est Cr Clr Drug Dosing 99.5 Est GFR ( Amer) 81.5 Est GFR (Non-Af Amer) 70.3 BUN/Creatinine Ratio 18.2 Glucose 92 Estimat Average Glucose Hemoglobin A1c Calcium 9.4 Magnesium 2.4 Total Bilirubin AST ALT Alkaline Phosphatase Troponin I < 0.015 Total Protein Albumin Globulin Albumin/Globulin Ratio Triglycerides 114 Cholesterol 120 LDL Cholesterol, Calc 55 VLDL Cholesterol, Calc 23 HDL Cholesterol 42 Cholesterol/HDL Ratio 3 SARS-CoV-2 (PCR) NEGATIVE Influenza Type A (PCR) Negative Influenza Type B (PCR) Negative RSV (RT-PCR) Negative 03/05/21 03/05/21 05:23 08:57 WBC RBC Hgb Hct MCV MCH MCHC RDW Std Deviation RDW Coeff of Kj Plt Count MPV Immature Gran % (Auto) Neut % (Auto) Lymph % (Auto) Carbon % (Auto) Eos % (Auto) Baso % (Auto) Neut # (Auto) Lymph # (Auto) Carbon # (Auto) Eos # (Auto) Baso # (Auto) Immature Gran # (Auto) PT INR APTT PTT Ratio D-Dimer Sodium Potassium Chloride Carbon Dioxide Anion Gap BUN Creatinine Est Cr Clr Drug Dosing Est GFR ( Amer) Est GFR (Non-Af Amer) BUN/Creatinine Ratio Glucose Estimat Average Glucose 117 Hemoglobin A1c 5.7 H Calcium Magnesium Total Bilirubin AST ALT Alkaline Phosphatase Troponin I < 0.03 Total Protein Albumin Globulin Albumin/Globulin Ratio Triglycerides Cholesterol LDL Cholesterol, Calc VLDL Cholesterol, Calc HDL Cholesterol Cholesterol/HDL Ratio SARS-CoV-2 (PCR) Influenza Type A (PCR) Influenza Type B (PCR) RSV (RT-PCR) Diagnostic Findings March 09, 2009 Cardiac Catheterization ([facility], Dr. Barksdale) 1. Hemodynamics: Aortic pressure 120/70. Left ventricular pressure 120/10 with end-diastolic pressure 20-26, which represents moderate diastolic dysfunction. 2. Left ventriculography: Mildly dilated. There is the appearance of mid anterolateral hypokinesis, but this is within normal limits and is, in fact, fairly typical. Ejection fraction is at the lower limits ofnormal at about 55%. No mitral regurgitation. 3. Coronary arteriography: Luminal irregularities, but no severe lesions. a. Left main: Normal. b. Left anterior descending: Moderate-sized type II vessel with very slight plaque, but no significant lesions. c. Circumflex: Moderate-sized vessel with luminal irregularities, less than 10%. d. Right coronary artery: Essentially normal vessel, quite large. February 14, 2011 YEN Interpretation Summary (as per Dr. Curtis): Baseline ECG was normal. No symptoms were noted. The stress test was terminated due to fatigue. Target heart rate not achieved in part related to beta blockade. The stress EKG response showed no evidence of ischemia. The left ventricular wall motion is normal at rest. The qualitative LV ejection fraction is 50-54% (normal). The left ventricular ejection fraction increases normally with stress. The left ventricular wall motion with stress is normal. February 25, 2021 NT-PRO-NBP: 59 pg/mL February 28, 2021 Carotid Duplex: Right carotid artery duplex examination indicates evidence of less than 50% stenosis of the internal carotid artery. Left carotid artery duplex examination indicates evidence of less than 50% stenosis of the internal carotid artery. EKG on October 14, 2020 revealed sinus rhythm at 66 bpm with a first-degree AV block, incomplete right bundle branch block. EKG on presentation revealed sinus rhythm at 65 bpm with a first-degree AV block with premature atrial complexes A second EKG on March 04, 2021 revealed sinus bradycardia at 59 bpm with a first-degree AV block with premature atrial complexes and blocked PAC with mild pause. EKG on March 05, 2021 reveals sinus rhythm at 66 bpm with a first-degree AV block with occasional premature ventricular complexes. ER telemetry reveals sinus/sinus bradycardia. There are occasional premature atrial and ventricular complexes including blocked PACs with mild pauses. No significant pauses. No high degree AV block. No atrial or ventricular tachyarrhythmias. (1) Chest pain Chest pain type: unspecified Qualified Code(s): R07.9 - Chest pain, unspecified
[2021-03-05] MEDS: CHOLECALCIFEROL 5,000 UNITS 125 MCG TAB PO SCH (09:56)
[2021-03-05] MEDS: DULoxetine HCL 30 MG CAP PO SCH (09:56)
[2021-03-05] MEDS: MULTIVITAMIN TAB PO SCH (09:56)
[2021-03-05] MEDS: allopurinoL 300 MG TAB PO SCH (09:56)
[2021-03-05] MEDS: ASPIRIN 81 MG ECTAB PO SCH (09:56)
[2021-03-05] MEDS: lisinopril 5 MG TAB PO SCH (09:56)
[2021-03-05] MEDS: DULoxetine HCL 60 MG CAP PO SCH (09:56)
[2021-03-05] MEDS: PANTOprazole 40 MG TAB PO SCH (09:57)
[2021-03-05] MEDS: predniSONE 5 MG TAB PO SCH (09:57)
[2021-03-05] MEDS: traMADol HCL 50 MG TABLET PO PRN ×2 (12:07→20:13)
[2021-03-05 12:33] LABS: Lyme Ab IgG w/WB Rflx Negative (Negative); Lyme Ab IgM w/WB Rflx Negative (Negative)
--- NOTE | 2021-03-05 16:04 | Communication Note ---
Date of Service: March 05, 2021 The patient was seen and examined in emergency room in the [place] [facility] area. 65-year-old male with significant past medical history as mentioned in H&P has been admitted with exertional shortness of breath and needs to be ruled out any cardiac causes. No signs of ACS as of yet and he was evaluated by creeler today. He will have a Lexiscan imaging tomorrow to evaluate his cardiac condition. Remains stable hemodynamically. Full progress note will be done by the hospitalist tomorrow. Dr Chilo Samayoa
[2021-03-05] MEDS: ACETAMINOPHEN 325 MG TAB PO PRN (17:11)
[2021-03-05] MEDS ORDERED: TAMSULOSIN HCL 0.4 MG CAP PO SCH (21:00)
[2021-03-05] MEDS ORDERED: SIMVASTATIN 40 MG TAB PO SCH (21:00)
[2021-03-05] MEDS ORDERED: HYDROXYCHLOROQUINE SULFATE 200 MG TAB PO SCH (21:00)
[2021-03-06] MEDS: ACETAMINOPHEN 325 MG TAB PO PRN (02:36)
[2021-03-06] MEDS ORDERED: SODIUM CHLORIDE 0.65% NA SOLN 45 ML (OCEAN) PRN (02:40)
[2021-03-06 07:30] LABS: Basophils # (auto) 0.04 K/uL (0-0.2); Basophils % (auto) 0.4 %; Eosinophils # (auto) 0.11 K/uL (0-0.5); Eosinophils % (auto) 1.2 %; Hematocrit (blood only) 42.5 % (42-52); Hemoglobin 14.6 g/dL (14.0-18.0); Immature Granulocytes # (auto) 0.01 K/uL (0.00-0.02); Immature Granulocytes % (auto) 0.1 %; Lymphocytes # (auto) 3.93 K/uL (1.2-3.4); Lymphocytes % (auto) 43.4 %; Mean Corpuscular Hemoglobin 34.4 pg (25-34); Mean Corpuscular Hgb Conc 34.4 g/dL (32-36); Mean Corpuscular Volume 100.2 fL (80-100); Mean Platelet Volume 10.7 fL (7.4-10.4); Monocytes # (auto) 0.53 K/uL (0.11-0.59); Monocytes % (auto) 5.8 %; Neutrophils # (auto) 4.44 K/uL (1.4-6.5); Neutrophils % (auto) 49.1 %; Platelet Count 250 K/uL (130-400); RDW Coefficient of Variation 13.8 % (11.5-14.5); RDW Standard Deviation 50.6 fL (36.4-46.3); Red Blood Count 4.24 M/uL (4.7-6.1); White Blood Count 9.06 K/uL (4.8-10.8)
[2021-03-06 07:53] LABS: BUN Creatinine Ratio 18.4 (10-20); Creatinine Clr Calc Pharmacy 86.2 ml/min; Est GFR (African American) 70.6 ml/min; Est GFR (Non-African American) 60.9 ml/min; Magnesium 2.1 mg/dl (1.7-2.4); Potassium 4.3 mmol/L (3.5-5.1)
[2021-03-06] MEDS ORDERED: REGADENOSON 0.4 MG/5 ML SYR IV ONE (08:11)
[2021-03-06] MEDS ORDERED: METOPROLOL SUCC 25MG EXT REL TAB PO SCH (09:00)
[2021-03-06] MEDS ORDERED: ROSUVASTATIN CALCIUM 20 MG TAB PO SCH (09:00)
[2021-03-06] MEDS: allopurinoL 300 MG TAB PO SCH (10:43)
[2021-03-06] MEDS: ASPIRIN 81 MG ECTAB PO SCH (10:44)
[2021-03-06] MEDS: DULoxetine HCL 30 MG CAP PO SCH (10:44)
[2021-03-06] MEDS: MULTIVITAMIN TAB PO SCH (10:45)
[2021-03-06] MEDS: CHOLECALCIFEROL 5,000 UNITS 125 MCG TAB PO SCH (10:45)
[2021-03-06] MEDS: DULoxetine HCL 60 MG CAP PO SCH (10:45)
[2021-03-06] MEDS: lisinopril 5 MG TAB PO SCH (10:45)
[2021-03-06] MEDS: predniSONE 5 MG TAB PO SCH (10:46)
[2021-03-06] MEDS: PANTOprazole 40 MG TAB PO SCH (10:46)
[2021-03-06] MEDS ORDERED: AMOXICILLIN/CLAVULANATE 875 MG TAB PO SCH (12:30)
--- NOTE | 2021-03-06 14:27 | Myocardial Perfusion Study ---
Date of Service March 06, 2021 Myocardial Perfusion Study [facility] Myocardial Perfusion Study Report Procedure: 1. Myocardial perfusion study performed in multiple views/images 2. Lexiscan pharmacologic stress ECG Indications: 1. Dyspnea on exertion, chest discomfort, dizziness Ordering physician: Spencer Beckwith PA-C, Facundo Mccollum DO Procedural details: For the stress portion of the study, Lexiscan 0.4 mg was intravenously administered followed by a saline flush. This was followed by 32 mCi of technetium 99m Cardiolite, injected at 930 am on 03/06/21. 30 minutes following the injection, imaging of the heart was performed in multiple projections. For the rest portion of the study, 10.1 mCi technetium 99m Cardiolite was injected intravenously at 8:00 am on 03/06/21. 1 hour following the injection, imaging of the heart was performed in the same projections. Lexiscan stress ECG: Resting ECG demonstrated: Sinus rhythm and sinus arrhythmia with incomplete right bundle branch block, first-degree AV block Maximum heart rate: 110 bpm Maximal, age-predicted heart rate: 70% Resting blood pressure: 149/89 mmHg Maximum blood pressure: 149/89 mmHg, lowest blood pressure 102/[address] changes: None Arrhythmia: No significant Symptoms: Transient nonspecific shortness of breath with administration of Lexiscan that resolved in the post-rest recovery interval. Findings: Rotating raw imaging demonstrated no significant lung uptake. There is no significant motion artifact. Heart size appeared normal. Myocardial perfusion demonstrated normal perfusion on both the stress and resting images.. Ejection fraction: 63% as calculated by the gated SPECT technique Wall motion: Normal No significant transient ischemic dilation. Impression: 1. The Lexiscan myocardial perfusion imaging study was normal without evidence of infarct or ischemia. 2. The stress EKG response was normal. 3. Gated SPECT images revealed normal wall motion, normal LVEF, 63%.
--- NOTE | 2021-03-06 14:32 | Cardiology Progress Note ---
Date of Service March 06, 2021 Assessment & Plan (1) JIN (dyspnea on exertion): Plan: -Symptoms somewhat atypical for angina. -Minimal CAD on prior cardiac cath 10 years ago. -EKG and serial troponin leves are normal. -Negative lexiscan stress is reassuring. -Continue medical management, risk factor modification. (2) Bradycardia: Plan: -PACS, No sustained bradycardia. Transition from atenolol to metoprolol. (3) Myalgia: Plan: Transition from simvastatin to atorvastatin. (4) Sinusitis: Plan: Althought the visualized sinuses on the recent CT of the head were normal, pt's symptoms of congestion, sinus pressure, tooth pain suggestive. Proceed with course of Augmentin. Stable for DC to home with plan as above. Follow up with Mr Beckwith or Dr Hanh in 2-4 weeks. Follow up with PCP. Admission and Anticipated Discharge Date Admission Date: March 05, 2021 Subjective Pt seen prior to and during lexiscan stress test. Reassessed post stress test on the medical antonio. Telemetry reveals sinusr arrhythmia , PACs in the 50s to 60s overnight. Review of Systems Ear, Nose, Mouth, Throat: "tooth" and jaw pain last night, at rest No associated chest pain. Physical Exam Physical Exam: Temp Pulse Resp BP Pulse Ox 36.5 C 64 18 153/92 H 95 03/06/21 08:02 03/06/21 08:11 03/06/21 08:02 03/06/21 08:02 03/06/21 08:02 Constitutional: WD/WN, vitals as above ENMT: mild tenderness over frontal and maxillary sinuses Respiratory: Auscultation: lungs clear to auscultation bilaterally Cardiovascular: Rate/Rhythm: regular rate Heart Sounds: no murmur Extremities: no edema Gastrointestinal (Abdomen): normal bowel sounds, soft, nontender, no hepatosplenomegaly Neurologic: PERRL, EOMI, accommodation nl, no face palsy, no dysarthria Results & Data ([facility]) Vital Signs (Past 12 Hours) Vital Signs Temp Pulse Pulse Resp BP Pulse Ox 03/06/21 08:11 64 03/06/21 08:02 36.5 C 96 H 18 153/92 H 95 03/06/21 03:21 36.6 C 58 L 16 104/64 95 Laboratory Results CBC 03/06/21 Range/Units 06:56 WBC 9.06 (4.8-10.8) K/uL RBC 4.24 L (4.7-6.1) M/uL Hgb 14.6 (14.0-18.0) g/dL Hct 42.5 (42-52) % Plt Count 250 (130-400) K/uL Neut # (Auto) 4.44 (1.4-6.5) K/uL Lymph # (Auto) 3.93 H (1.2-3.4) K/uL [place] # (Auto) 0.53 (0.11-0.59) K/uL Eos # (Auto) 0.11 (0-0.5) K/uL Baso # (Auto) 0.04 (0-0.2) K/uL Comprehensive Metabolic Panel 03/06/21 Range/Units 06:56 Sodium 140 (136-145) mmol/L Potassium 4.3 (3.5-5.1) mmol/L Chloride 104 (98-107) mmol/L Carbon Dioxide 31 (21-32) mmol/L BUN 23 (6-23) mg/dl Creatinine 1.25 (0.6-1.4) mg/dl Glucose 94 (70-99) mg/dl Calcium 9.0 (8.5-10.1) mg/dl Intake and Output 03/05/21 03/06/21 03/06/21 22:59 06:59 14:59 Intake Total 150 / 150 Balance 150 / 150 Intake: Oral 150 / 150 Other: Other Intake Source NPO Npo # Unmeasured Voids 2 Weight 128.5 kg Weight Measurement Method Built in [facility]
--- NOTE | 2021-03-06 15:18 | Hospitalist Progress Note ---
Date of Service March 06, 2021 Assessment & Plan (1) Chest pain: Plan: Patient is a 65 yr old male who presents with dyspnea on exertion on ongoing dizziness and feeling weak. Atypical chest pain Dyspnea on exertion H/O CAD EKG, cardiac enzymes showed no signs of acute ischemia Stress test is negative for ischemia as well Appreciate cardiology input Will change atenolol to metoprolol and simvastatin to atorvastatin as recommended by cardiology Sinusitis Imaging studies reviewed Possible tooth infection Started on Augmentin Advised to follow-up with his dentist as outpatient Bradycardia PACs, no sustained bradycardia Obesity: BMI: 36 Inflammatory polyarthritis: Continue prednisone and Plaquenil. Hyperlipidemia: Continue statin GERD Continue PPI Hypertension: Continue lisinopril Atenolol transition to metoprolol Depression: Continue duloxetine. 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 DVT Px: SCDs Admission and Anticipated Discharge Date Admission Date: March 05, 2021 Subjective Seen and examined at bedside Had stress test earlier today Discussed with cardiology today States having mild tooth left upper discomfort associated with headache and sinus pressure Denies any chest pain, shortness of breath, dizziness Offers no other complaints Review of Systems Review of Systems: All systems reviewed & are unremarkable except as noted in Subjective Physical Exam Physical Exam: Physical Exam: Vitals signs as noted above General Appearance:Obese, no apparent distress Head: normocephalic, Atraumatic, + mild maxillary, frontal sinus tenderness Eyes: normal inspection, EOMI Neck: supple, Trachea midline Respiratory/Chest: Normal breath sounds, CTA Cardiovascular: S1, S2, No murmur Abdomen/GI:Soft, Non tender, Bowel sounds present Extremities/Musculoskeletal:normal inspection, no edema Neurologic/Psych:AAOX3, grossly no focal neurological deficits Skin: normal color, warm Results & Data Results & Data ([facility]) Vital Signs (Past 12 Hours) Vital Signs Temp Pulse Pulse Resp BP Pulse Ox 03/06/21 08:11 64 03/06/21 08:02 36.5 C 96 H 18 153/92 H 95 03/06/21 03:21 36.6 C 58 L 16 104/64 95 Laboratory Results Short CBC 03/06/21 Range/Units 06:56 WBC 9.06 (4.8-10.8) K/uL Hgb 14.6 (14.0-18.0) g/dL Hct 42.5 (42-52) % Plt Count 250 (130-400) K/uL BMP 03/06/21 06:56 Sodium 140 Potassium 4.3 Chloride 104 Carbon Dioxide 31 BUN 23 Creatinine 1.25 Glucose 94 Calcium 9.0 (1) Chest pain Chest pain type: unspecified Qualified Code(s): R07.9 - Chest pain, unspecified
--- NOTE | 2021-03-06 15:26 | Discharge Summary ---
Date of Service March 06, 2021 Admission HPI Per Admitting Provider CHIEF COMPLAINT: Shortness of breath on exertion. HISTORY OF PRESENT ILLNESS: This is a 65-year-old male with past medical history significant for metabolic syndrome, hyperlipidemia, idiopathic chronic gout on multiple sites, deviated nasal septum, hypertension, gastritis, chronic kidney disease stage II, inflammatory polyarthritis, cervical spondylosis, osteoarthritis, history of tobacco abuse, adjustment disorder with depression, family history of cardiovascular disease, persistent insomnia attributes this to his chronic back pain, on long-term current use of systemic steroids. Lives with his girlfriend. Comes because of shortness of breath with exertion. The patient says he is getting short of breath with exertion ever since last 2 months and also feeling dizzy in the evenings when he just lays down because of dizziness. Couple of times every week, he is getting headaches. He also has some funny feeling in his right eye, but that resolved. Today he was getting chair to his attic when after that he felt very short of breath and he has to go outside to take deep breath, but it did not help him. He felt almost passing out, which prompted him to come to the ER today and he is also complaining of chest pain in his right lower rib and also epigastric abdominal pain and lower abdominal pain with 6/10 in severity. Because of his constitutional symptoms multiple imaging studies were done in the ER, which were unremarkable. CTA of the head and neck and CTA of the chest were done which were unremarkable. COVID is negative. Flu is negative. Currently, resting comfortably and hemodynamical ly stable. Denies any blurred visions, no runny nose, no sore throat, no cough, no fevers, no nausea, no vomiting, alternating diarrhea and constipation, no blood in stools or black stools. He states his urine stream is very weak. He takes long time to pee, no swelling in the legs. Admission Exam Per Admitting Provider PHYSICAL EXAMINATION: GENERAL: The patient is obese, not in acute distress. VITAL SIGNS: Temperature 36.9, pulse 64, respiratory rate 20, blood pressure 128/61, oxygen 96% on room air. HEENT: Pupils equal, round and reactive to light. Oral mucosa moist. NECK: No JVD, no neck masses. CARDIOVASCULAR: S1 and S2 heard. Regular rate and rhythm. No murmur, no gallop. RESPIRATORY SYSTEM: Normal AP diameter. No accessory muscle use. No wheezing, no crackles. ABDOMEN: Soft, bowel sounds are present. Epigastric tenderness present. No tenderness below the umbilicus region. No guarding, no rigidity. No distention. CENTRAL NERVOUS SYSTEM: Cranial nerves II through XII are grossly intact, nonfocal. EXTREMITIES: No edema, no erythema. Principal Diagnosis Acute Sinusitis Atypical chest pain Possible benign prostatic hypertrophy Discharge Data Allergies Allergy/AdvReac Type Severity Reaction Status Date / Time No Known Allergies Allergy Unverified 03/04/21 22:06 Consultations 03/04/21 22:29 ED Decision to Admit Stat 03/05/21 08:00 Consult Cardiology Routine Ordered Studies 03/04/21 21:00 CT angio chest PE protocol Stat CT angio head w con Stat CT angio neck with con Stat CT head/brain wo con Stat Hospital Course (1) Chest pain: Patient is a 65 yr old male who presents with dyspnea on exertion on ongoing dizziness and feeling weak. Atypical chest pain Dyspnea on exertion H/O CAD EKG, cardiac enzymes showed no signs of acute ischemia Stress test is negative for ischemia as well Appreciate cardiology input Will change atenolol to metoprolol and simvastatin to atorvastatin as recommen ded by cardiology Sinusitis Imaging studies reviewed Possible tooth infection Started on Augmentin Advised to follow-up with his dentist as outpatient Bradycardia PACs, no sustained bradycardia Obesity: BMI: 36 Inflammatory polyarthritis: Continue prednisone and Plaquenil. Hyperlipidemia: Continue statin GERD Continue PPI Hypertension: Continue lisinopril Atenolol transition to metoprolol Depression: Continue duloxetine. 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 DVT Px: SCDs Total Time Total Time Spent Total Time Spent (In Minutes): 39 minutes Discharge Plan Discharge Items Patient Disposition: Home - Self-Care Reason For Visit: JIN Discharge Diagnosis: Acute Sinusitis Atypical chest pain Possible benign prostatic hypertrophy Activity: Per Instructions section Exercise/Sports: Gradually increase as tolerated Non-emergency contact: Primary Care Provider, Specialist and Urologist Call non-emergency contact if: you have any medication questions, your symptoms worsen, your pain is concerning for you and you have a fever Follow-up/Referrals: Hong Zheng MD [Primary Care Provider] - (Date & Time 03/12/2021 11:20 AM Provider Hong Zheng MD Department Family Medicine [facility] ) Diet: Heart Healthy Addtl Attending Provider Instructions: Follow-up with your primary care physician on 03/12/2021 11:20 AM Follow-up with your dental surgeon as recommended Follow-up with your urologist for assessment of your prostate as advised --- Complete the antibiotic course Augmentin for sinusitis as prescribed Seek immediate medical attention if your symptoms reoccur or worsen Please take all medications as instructed on discharge list below. Please call if you have any questions or problems. You can reach a [facility] hospitalist on duty at [facility] 24 hours a day by calling [phone] Pending Studies at Discharge: No Stand-Alone Forms: My [facility] [employer], Smoking Cessation Medications and DC Order Prescriptions: New metoprolol succinate 25 mg Tablet Extended Release 24 Hr 12.5 mg PO QAM Qty: 30 RF: 0 amoxicillin-pot clavulanate [Augmentin] 875-125 mg Tablet 1 tab PO BIDM Qty: 13 RF: 0 rosuvastatin [Crestor] 20 mg Tablet 20 mg PO QAM Qty: 30 RF: 0 Continued prednisone 5 mg tablet 5 mg PO QAM RF: 0 aspirin [Aspirin Low Dose] 81 mg Tablet,Delayed Release (Dr/Ec) 81 mg PO QAM RF: 0 tramadol [Ultram] 50 mg tablet 100 mg PO BID PRN (Reason: Pain) RF: 0 omeprazole 20 mg capsule,delayed release(DR/EC) 20 mg PO QAM RF: 0 allopurinol 300 mg tablet 300 mg PO QAM RF: 0 lisinopril [Zestril] 5 mg tablet 5 mg PO QAM RF: 0 hydroxychloroquine [Plaquenil] 200 mg tablet 400 mg PO HS RF: 0 duloxetine [Cymbalta] 30 mg capsule,delayed release(DR/EC) 30 mg PO QAM RF: 0 cholecalciferol (vitamin D3) [Vitamin D3] 5,000 unit Tablet 5,000 unit PO QAM RF: 0 duloxetine [Cymbalta] 60 mg capsule,delayed release(DR/EC) 60 mg PO QAM RF: 0 multivitamin [Multiple Vitamin] Tablet 1 tab PO DAILY RF: 0 Discontinued atenolol [Tenormin] 25 mg tablet 12.5 mg PO QAM RF: 0 simvastatin [Zocor] 40 mg tablet 40 mg PO HS RF: 0 Discharge Orders: Discharge Order (Routine); Ordered 03/06/21 Ordered By: Jonny Flores Admission Data Admit Date/Time: 03/05/21 00:48 Attending Provider: Jonny Flores Admit Provider: Arnold Cordero Primary Care Provider: Hong Zheng Other Providers: Arnold Cordero ; Dewey Baig ; Facundo Hahn ; Brian Wyatt ; Zacarias Fowler ; Chase Leon ; Spencer Beckwith ; Luci Long ; Susan Johnson ; Elisabet Boo ; Rosendo Guillen
== END 2021-03-06 16:00 | disposition home or self-care (01) ==
LOC: ED 16:30 → EDINP 16:30 → SUATTDRO 03-05 00:48 → 2N 03-05 16:39